=== PATIENT | female | born 1940 | race Caucasian/White ===

== ENCOUNTER → 2016-12-25 | Day surgery (SDC) | payer MEDICARE ==
[~2016-12-25] MED LIST: AMBI10TA PO; ASPI1TAB69 PO; BENI40TA7 PO; BUPIVACAINE/EPINEPHRINE 0.25% PF 30 ML VIAL ONE; CALC1TAB87 PO; CYCL1TAB29 PO; CYMB30CA PO; LACTATED RINGER'S 1000 ML INJ 1,000 ML ONE; MIDAZOLAM HCL 2 MG/2 ML VIAL ONE; MILN50 PO; MULT-120 PO; ONDANSETRON HCL 4 MG/2 ML VIAL IV PUSH ONE; OXYC15TA55 PO; PERC10TA27 PO; PRIL10CA PO; PROPOFOL 100 MG/10 ML INJ IV ONE; SYNT112T PO; ZETI10TA5 PO; [UNRECOGNIZED DRUG - CODE] SL; ceFAZolin 2 GM PREMIX 50 ML ONE
--- NOTE | 2016-12-25 14:50 | TN ---
cc: CHAPO BUSTOS M.D. DATE OF SURGERY: 12/25/2016 PREOPERATIVE DIAGNOSIS 1. Right posterior chest wall mass near a previous chest tube site. 2. History of multiple malignancies in the past. 3. Probable malignant effusion, right chest. POSTOPERATIVE DIAGNOSIS 1. Right posterior chest wall mass near a previous chest tube site. 2. History of multiple malignancies in the past. 3. Probable malignant effusion, right chest. PROCEDURE PERFORMED Excisional biopsy, right chest wall mass. SURGEON Chapo Bustos. CAMPUS INTERVIEWS INTERN Beverley George ANESTHESIA General LMA. COMPLICATIONS None. INDICATION FOR PROCEDURE Ms. Guzman is a very pleasant 76-year-old female who is unfortunately diagnosed with a recent right pleural effusion that was felt to be malignant. She had a chest tube placed and the effusion was drained. Subsequent to that she developed a firm enlarging mass in her right posterior chest area where the chest tube previously was. She is currently being worked up for recurrent malignancy. She had a PET scan showing concerns for possible mesothelioma of the right chest. Because the mass was enlarging and causing her pain, her and her requested it be excised for pathology. The risks and benefits of the procedure were discussed with them and they are agreeable. DETAILS OF PROCEDURE The patient was identified, brought to the operating room and placed supine on the operating table. After general anesthesia was achieved with LMA, the patient was then turned in the left lateral decubitus position with appropriate padding for hips, knees, shoulders and ankles. The right chest wall was then prepped and draped in a standard surgical fashion. 0.25% Marcaine was injected. The previous chest tube incision was opened. Subcutaneous fat was dissected with electrocautery Bovie. Dissection proceeded down through the subcutaneous fat to the musculature of the rib cage where a firm white mass was seen coming through the chest wall muscles. It was excised generously and sent to pathology for analysis. The chest cavity proper was not entered. The wound was copiously irrigated with normal saline solution. The wound was injected with additional local anesthetic then closed in two layers using 3-0 and 4-0 Vicryl. Sterile dressing was applied. The patient was awakened and brought to Recovery in stable condition. MD VASILE Arndt/THOMAS /2:07 PM /2:41 PM
== END | disposition home or self-care (01) ==
LOC: ESDC 11:43
PROVIDERS: ATTEND Surgery Trauma Surgery
DX: R22.2 Localized swelling, mass and lump, trunk (principal); Z85.118 Personal history of other malignant neoplasm of bronchus and lung; Z85.3 Personal history of malignant neoplasm of breast; Z91.040 Latex allergy status
CPT/HCPCS: 00400; 21556; 88307; 88313; 88341; 88342; J0690; J2250; J2405; J3010; J7120; 88305

== ENCOUNTER → 2017-01-08 | Day surgery (SDC) | payer MEDICARE ==
[~2017-01-08] MED LIST changes: -BUPIVACAINE/EPINEPHRINE 0.25% PF 30 ML VIAL ONE; +BUPIVACAINE/EPINEPHRINE 0.5% 50 ML VIAL ONE; -PROPOFOL 100 MG/10 ML INJ IV ONE; +PROPOFOL 200 MG/20 ML AMP IV ONE; +SODIUM CHLORIDE 0.9% INJ 10 ML ONE
--- NOTE | 2017-01-08 16:42 | TN ---
cc: CHAPO BUSTOS M.D. DATE OF SURGERY 01/08/2017 PREOPERATIVE DIAGNOSIS Mesothelioma right lung. POSTOPERATIVE DIAGNOSIS Mesothelioma right lung. PROCEDURE PERFORMED Left subclavian [id number]-N-Zqxa with intraoperative fluoroscopy. SURGEON Chapo Bustos MD ANESTHESIA TIVA with local. COMPLICATIONS None. INDICATION FOR THE PROCEDURE Ms. Guzman is a very pleasant 76-year-old female who unfortunately was recently diagnosed with a mesothelioma of her right lung. She requires IV chemotherapy. She was seen by Dr. Afshan Lao her oncologist who recommended she have an Pzbswl-[id number]-Nush placed. The patient was referred back and seen. She was offered [id number]-[id number]. Both her and her agreed. DETAILS The patient was identified, brought to the operating placed supine on the table. After adequate IV sedation was achieved, the anterior chest and neck was prepped and draped in standard surgical fashion. 0.25% Marcaine was injected in to the skin and subcutaneous tissue around the left clavicle. Left subclavian vein was then accessed without difficulty using an 18 gauge needle. Guidewire was advanced and followed to the level of the superior vena cava. Next a subcutaneous pocket was fashioned in the left anterior chest using a blunt dissection. The introducer was then placed over the guidewire and followed with fluoroscopy to the superior vena cava. Guidewire was then removed and catheter inserted. Catheter was advanced about 20 cm which put it at the junction of the right atrium in the superior vena cava. Next the catheter was attached to the port with a locking device. Port was tested, found to have excellent blood return, easy ability to flush. Port was placed into the subcutaneous pocket and secured with 2-0 Prolene suture. Pocket was injected with additional local anesthetic and then closed in two layers using a 4-0 Vicryl. Sterile dressings were applied. The patient was awakened, brought to recovery in stable condition. A chest x-ray will be obtained in recovery. MD VASILE Arndt/BRANDEN /1:07 PM /4:32 PM
== END | disposition home or self-care (01) ==
LOC: ESDC 11:04
PROVIDERS: ATTEND Surgery Trauma Surgery
DX: Z45.2 Encounter for adjustment and management of vascular access device (principal); C45.9 Mesothelioma, unspecified
CPT/HCPCS: 00532; 36561; 77001; C1788; J0690; J1642; J2250; J2405; J3010; J7120

== ENCOUNTER 2017-03-23 16:32 | Observation (INO) | payer MEDICARE ==
[~2017-03-23] VITALS: Ht 167.6 cm; Wt 65.0 kg
[~2017-03-23 16:32] MED LIST changes: -BUPIVACAINE/EPINEPHRINE 0.5% 50 ML VIAL ONE; -LACTATED RINGER'S 1000 ML INJ 1,000 ML ONE; -MIDAZOLAM HCL 2 MG/2 ML VIAL ONE; -ONDANSETRON HCL 4 MG/2 ML VIAL IV PUSH ONE; -PROPOFOL 200 MG/20 ML AMP IV ONE; -SODIUM CHLORIDE 0.9% INJ 10 ML ONE; -ceFAZolin 2 GM PREMIX 50 ML ONE
[2017-03-23 17:30] VITALS: BP 114/69; PULSE 106; RESP 20; TEMP 97.2; O2SAT 95
[2017-03-23] MEDS ORDERED: MORPHINE SULFATE 4 MG/ML INJ IV PUSH PRN ×2 (17:45)
--- NOTE | 2017-03-23 17:50 | HHI.HP ---
[facility] Cole Henao MD Admission Diagnosis Diagnoses: Travel History International Travel<30 Days: No Contact w/Intl Traveler <30 Da: No History of Present Illness This is a very pleasant but unfortunate 76-year-old female who sees oncologist Dr. oHdgson and television inspector Dr. Valerio. She has a history of recurrent right sided pleural effusions and subsequently had a diagnosis of mesothelioma for which she received chemotherapy. The last chemotherapeutic agent she received was 2 weeks ago and was cisplatin. And is ago she attended a and she was standing for about 3 hours. This was followed by severe back pain right groin pain and right lower extremity pain. She was seen today at the office of her oncologist. Her systolic was 59 and her heart rate 110 with a saturation of 95% on 2 L. She is now admitted with dehydration, hypotension, tachycardia and intractable pain. Of note that 6 weeks ago a PET scan was negative for any metastases. She was seen by the undersigned in presence of her who himself is a retired physician in room 722. She is alert and oriented. She just received some IV morphine and therefore she started feeling better. Amongst her other complaints she has some trouble swallowing, acid reflux and constipation. She recently was diagnosed with urinary tract infection and currently is on ampicillin. She denies any fever chills or diaphoresis. No cough no sputum. She has nausea but no vomiting. No abdominal pain other than the above. She has chronic recurrent constipation. Review of Systems Other As detailed above, 10 systems reviewed and otherwise negative Past Family Social History Past Medical History Right mesothelioma Recurrent right pleural effusions Right breast cancer that occurred twice, first time treated with lumpectomy second time treated with mastectomy Reflux disease, urinary infection, fibromyalgia, anxiety Hyperlipidemia episode of tachycardia Hypertension Collagen colitis irritable bowel syndrome hypothyroidism neck pain headache Stroke diagnosed on MRI at an episode of slurred speech however this now recovered Neuropathy Past Surgical History Numerous right thoracenteses Tonsillectomy C-spine fusion L-spine fusion Appendectomy Right mastectomy Hysterectomy Right total knee replacement Left carpal tunnel release Right mid finger fusion Reported Medications Reported Meds & Active Scripts Active Reported Ampicillin 500 Mg Cap 500 Mg PO QID Oxycontin (Oxycodone HCl) 15 Mg Tab PO Q12HR Savella (Milnacipran) 50 Mg Tab 50 Mg PO BID Ambien (Zolpidem Tartrate) 10 Mg Tab 10 Mg PO HS PRN Percocet (Oxycodone-Acetaminophen) 10-325 mg Tab 1 Tab PO Q4H PRN Prilosec (Omeprazole) 10 Mg Cap 10 Mg PO DAILY Multivitamin Women (Multiple Vitamins W/ Minerals) 1 Tab Tab 1 Tab PO DAILY Synthroid (Levothyroxine Sodium) 112 Mcg Tab 112 Mcg PO DAILY Zetia (Ezetimibe) 10 Mg Tab 10 Mg PO DAILY Cymbalta DR (Duloxetine HCl) 30 Mg Capdr 30 Mg PO BID B-12 Dots (Cyanocobalamin) 500 Mcg Tab 500 Mcg SL DAILY Flexeril (Cyclobenzaprine HCl) 10 Mg Tab 10 Mg PO HS Calcium 600 with Vitamin D (Calcium Carbonate-Cholecalciferol) 600-400 mg-Unit Tab 1 Tab PO DAILY Benicar Hct (Olmesartan-Hydrochlorothiazide) 40-25 mg Tab 1 Tab PO DAILY Aspirin 81 Mg Tabdr 162 Mg PO DAILY Allergies: Coded Allergies: Adhesives (Verified Allergy, Severe, REDNESS,RASH, 08/24/16) Latex (Verified Allergy, Intermediate, RED RASH, 08/24/16) Lortab (Verified Allergy, Mild, ITCHING, 08/24/16) Sulfa (Verified Allergy, Mild, HIVES, 08/24/16) Family History Father at the age of 93 of old age, mother is alive and is 97, brother has COPD, sister has breast cancer Social History Does not smoke, drinks 1 glass of gin a day, no illicit drug use, lives with Physical Exam Physical Exam GENERAL: This is a very pleasant borderline poorly -nourished, well-developed patient, in no apparent distress. SKIN: No rashes, ecchymoses or lesions. Cool and dry. HEAD: Atraumatic. Normocephalic. No temporal or scalp tenderness. EYES: Pupils equal round and reactive. Extraocular motions intact. No scleral icterus. No injection or drainage. ENT: Nose without bleeding, purulent drainage or septal hematoma. Throat without erythema, tonsillar hypertrophy or exudate. Uvula midline. Airway patent. NECK: Trachea midline. No JVD or lymphadenopathy. Supple, nontender, no meningeal signs. CARDIOVASCULAR: Regular rate and rhythm without murmurs, gallops, or rubs. RESPIRATORY: Clear to auscultation. Breath sounds equal bilaterally. No wheezes , rales, or rhonchi. GASTROINTESTINAL: Abdomen soft, non-tender, nondistended. No hepato-splenomegaly , or palpable masses. No guarding. MUSCULOSKELETAL: Extremities without clubbing, cyanosis, or edema. No joint tenderness, effusion, or edema noted. No calf tenderness. Negative Homans sign bilaterally. NEUROLOGICAL: Awake and alert. Cranial nerves II through XII intact. Normal speech. Laboratory Sodium 130, potassium 3.5, chloride 92, CO2 31.3, BUN 19, creatinine 0.85, sugar 106, albumin 2.8, liver enzymes unremarkable, white count 3000, hemoglobin 10.6, platelets 258 Assessment and Plan Assessment and Plan Assessment Severe back pain and right groin pain, etiology unclear Hypotension Sinus tachycardia dehydration hyponatremia hypokalemia Leukopenia Anemia Recent urinary infection Significant history of metastatic mesothelioma Management Patient was placed on observation Telemetry IV fluids Hold off diuretics Hold off blood pressure medications for systolic below 120 Monitor sodium levels X-ray lumbar spine Hip x-ray Right groin ultrasound, rule out DVT DVT prophylaxis with low-dose heparin Follow electrolytes and replace as needed Follow renal function Follow hemoglobin Her oncologist is consulted Case discussed at length with patient and her Discussed with oncologist Discussed with nurse 45 minutes Mitchell Jaramillo MD Mar 23, 2017 17:50
[2017-03-23] MEDS ORDERED: AMPI500C8 PO (18:04)
[2017-03-23] MEDS ORDERED: PILL SPLITTER OTHER PRN (19:30)
--- NOTE | 2017-03-23 19:32 | RADRPT ---
EXAM DATE/TIME: 03/23/2017 18:46 [facility] COMPARISON: CT THORAX W/O CONTRAST, August 25, 2016, 18:04. HIP LEFT (AP&LAT 2/3VWS) WO AP PELVIS, March 23 17, 18:53. HIP RIGHT (AP&LAT 2/3VWS) W AP PELVIS, March 23, 2017, 18:50. INDICATIONS : Low back pain MEDICAL HISTORY : Mesothelioma. Chronic obstructive pulmonary disease. Hypertension. Diabetes mellitus type 2. SURGICAL HISTORY : Fusion, lumbar. Total knee replacement, right. Fusion, cervical. thyroidectomy ENCOUNTER: Initial ACUITY: 1 day PAIN SCORE: 7/10 LOCATION: Lumbar spine. FINDINGS: There is diffuse decreased bone density. 5 lumbar type vertebral bodies are noted. The patient has stanford d previous posterior jazz and transpedicular screw fixation and intervertebral fusion hardware placeme nt at L3-4. Grade 1 anterolisthesis of L3 on L4. Moderate to severe disc space narrowing is present a t L4-5 and L5-S1, moderate disc space narrowing at L1-2 and L2-3. Multilevel osteophyte formation. Po st laminectomy changes are noted at L3-L5. There is a moderate wedge compression fracture suspected a t T12. This is stable. There is slight superior endplate compression deformity at L2 identified. This is new from 2016. CONCLUSION: Degenerative changes and post surgical changes are identified. Remote T12 compression fracture. This is incompletely evaluated on this study. L2 mild superior endplate compression fracture identified a nd new from 2016. Tramaine Oliveros MD on March 23, 2017 at 19:27 Board Certified Radiologist. This report was verified electronically.
--- NOTE | 2017-03-23 19:33 | RADRPT ---
EXAM DATE/TIME: 03/23/2017 18:53 [facility] COMPARISON: HIP RIGHT (AP&LAT 2/3VWS) W AP PELVIS, March 23, 2017, 18:50. SPINE LUMBAR LTD (AP & LAT), March 23 017, 18:46. INDICATIONS : Left hip pain. MEDICAL HISTORY : Mesothelioma. Chronic obstructive pulmonary disease. Hypertension. Diabetes mellitus type 2. SURGICAL HISTORY : Fusion, cervical. Fusion, lumbar. Total knee replacement, right. thyroidectomy,Infuse a port. ENCOUNTER: Initial ACUITY: 1 day PAIN SCORE: 7/10 LOCATION: Left Hip. FINDINGS: Mild joint space narrowing without fracture or dislocation. There is decreased bone mineralization. CONCLUSION: No acute disease. Tramaine Oliveros MD on March 23, 2017 at 19:31 Board Certified Radiologist. This report was verified electronically.
--- NOTE | 2017-03-23 19:33 | RADRPT ---
EXAM DATE/TIME: 03/23/2017 18:50 [facility] COMPARISON: HIP LEFT (AP&LAT 2/3VWS) WO AP PELVIS, March 23, 2017, 18:53. SPINE LUMBAR LTD (AP & LAT), March 23 017, 18:46. INDICATIONS : Right hip and pelvis pain. MEDICAL HISTORY : Mesothelioma. Chronic obstructive pulmonary disease. Hypertension. Diabetes mellitus type 2. SURGICAL HISTORY : Total knee replacement, right. Fusion, lumbar. Fusion, cervical. thyroidectomy. Infuse a port. ENCOUNTER: Initial ACUITY: 1 day PAIN SCORE: 7/10 LOCATION: Right Pelvis and hip FINDINGS: The bone density is decreased. There is mild narrowing of both hips. No fractures are seen. CONCLUSION: Joint space narrowing without fracture or dislocation. Tramaine Oliveros MD on March 23, 2017 at 19:31 Board Certified Radiologist. This report was verified electronically.
--- NOTE | 2017-03-23 19:40 | RADRPT ---
EXAM DATE/TIME: 03/23/2017 19:04 [facility] COMPARISON: No previous studies available for comparison. EXTERNAL COMPARISON : [facility], US LEG VENOUS DOPPLER LEFT, January 09, 2017 INDICATIONS : Right leg swelling. MEDICAL HISTORY : Stroke. Hypertension. Gastroesophageal reflux disease. Hypothyroidism. Neck pain. Cataracts. Upper and lower dentures. Headache. Numbness. Dyspnea. Collagenous colitis. Fibromyalgia. Arthritis. Breas t cancer. SURGICAL HISTORY : Tonsillectomy. Appendectomy. Hysterectomy. Cervical and lumbar fusions. Right mastectomy. Right lump ectomy. Right thoracentesis. Middle finger fusion. ENCOUNTER: Subsequent ACUITY: 2 day PAIN SCORE: 3/10 LOCATION: Right leg. TECHNIQUE: Venous ultrasound of the leg was performed from the inguinal ligament to the proximal calf. Real-mal e, color Doppler and spectral tracing, compression and augmentation techniques were used. FINDINGS: There is normal compressibility of the deep venous system from the inguinal region to the proximal ca lf. No echogenic clot is seen in the lumen of the common femoral, femoral, popliteal, and posterior tibial veins. There is a normal response of the venous system to proximal and distal augmentation an d respiration. CONCLUSION: Normal examination. Tramaine Oliveros MD on March 23, 2017 at 19:38 Board Certified Radiologist. This report was verified electronically.
[2017-03-23 20:00] VITALS: BP 104/56; PULSE 101; RESP 18; TEMP 97.7; O2SAT 96
[2017-03-23] MEDS: CYCLOBENZAPRINE HCL 10 MG TAB PO SCH (20:33)
[2017-03-23] MEDS: POTASSIUM CHLORIDE 25 MEQ EFFERVESCENT TAB PO SCH (20:33)
[2017-03-23] MEDS: MILNACIPRAN 100 MG TAB PO SCH (20:33)
[2017-03-23] MEDS: DULoxetine HCl DR 30 MG CAP PO SCH (20:33)
[2017-03-23 21:15] LABS: MEAN CORPUSCULAR HGB CONC 36.2 % (32.0-36.0)
[2017-03-23] MEDS: ZOLPIDEM TARTRATE 10 MG TAB PO PRN (22:51)
[2017-03-24] VITALS (11 sets, daily range): BP systolic 120–198; BP diastolic 63–110; PULSE 98–109; RESP 17–21; TEMP 96.5–97.6; O2SAT 92–100
[2017-03-24] MEDS: oxyCODONE/ACETAMINOPHEN 10 MG/325 MG TAB PO PRN ×5 (04:59→22:25)
[2017-03-24] MEDS: LEVOTHYROXINE SODIUM 112 MCG TAB PO SCH (04:59)
[2017-03-24 07:18] LABS: AUTOMATED NEUTROPHIL # 1.4 TH/MM3 (1.8-7.7); BASOPHIL % 0.7 % (0.0-2.0); EOSINOPHIL % 1.5 % (0.0-4.0); HEMATOCRIT 28.9 % (35.0-46.0); LYMPH % 20.9 % (9.0-44.0); LYMPHOCYTE # 0.5 TH/MM3 (1.0-4.8); MEAN CELL VOLUME 92.5 FL (80.0-100.0); MEAN CORPUSCULAR HEMOGLOBIN 33.5 PG (27.0-34.0); MONO % 24.4 % (0.0-8.0); NEUT % 52.5 % (16.0-70.0); PLATELET COUNT 227 TH/MM3 (150-450); RED BLOOD COUNT 3.12 MIL/MM3 (4.00-5.30); RED CELL DISTRIBUTION WIDTH 17.6 % (11.6-17.2); WHITE BLOOD COUNT 2.6 TH/MM3 (4.0-11.0)
[2017-03-24 07:20] LABS: HEMO FLAGS AUTO DIFF
[2017-03-24] MEDS: ASPIRIN EC 81 MG TABEC PO SCH (07:26)
[2017-03-24] MEDS: PANTOPRAZOLE SOD 20 MG DELAYED RELEASE TAB PO SCH (07:27)
[2017-03-24] MEDS: DULoxetine HCl DR 30 MG CAP PO SCH ×2 (07:27→21:14)
[2017-03-24] MEDS: MULTIVITAMINS/MINERALS THERAPEUTIC TAB PO SCH (07:27)
[2017-03-24] MEDS: POTASSIUM CHLORIDE 25 MEQ EFFERVESCENT TAB PO SCH (07:27)
[2017-03-24] MEDS: MILNACIPRAN 100 MG TAB PO SCH ×2 (07:27→21:15)
[2017-03-24] MEDS: EZETIMIBE 10 MG TAB PO SCH (07:27)
[2017-03-24] MEDS: CALCIUM/VITAMIN D 250 MG/125 U TAB PO SCH (07:27)
[2017-03-24] MEDS: CYANOCOBALAMIN 100 MCG TAB PO SCH (07:28)
[2017-03-24 07:40] LABS: BICARBONATE 29.6 MEQ/L (21.0-32.0); POTASSIUM 3.5 MEQ/L (3.5-5.1)
[2017-03-24 07:52] LABS: INDIRECT BILIRUBIN 0.3 MG/DL (0.0-0.8); TOTAL BILIRUBIN ADULT 0.4 MG/DL (0.2-1.0)
[2017-03-24] MEDS: ONDANSETRON HCL 4 MG/2 ML VIAL IV PUSH PRN ×2 (08:49→21:12)
[2017-03-24] MEDS ORDERED: NON-FORMULARY DRUG (Olmesartan-Hydrochlorothiazide (Benicar Hct) 1 TAB) PO SCH (09:00)
[2017-03-24] MEDS: LISINOPRIL 20 MG TAB PO SCH (11:32)
[2017-03-24] MEDS ORDERED: SODIUM CHLOR 0.9% 1000 ML INJ 1,000 ML IV SCH (12:00)
[2017-03-24 12:33] LABS: OVALOCYTES 1+ (NORMAL); SCAN/DIFF AUTO DIFF CONFIRMED
--- NOTE | 2017-03-24 14:30 | HHI.PR ---
Subjective Subjective Remarks continues to have right sided back pain, radiating to groin and front thigh sharp inc. with movement voiding okay no cp no sob no fever BP now elevated up to 170s-180s on IVF has been out of bed with assistance at bsd Review of Systems Constitutional Constitutional Remarks 12 point ros completed, negative except as noted above Vitals/Results Intake & Output 03/23/17 03/23/17 03/24/17 15:00 23:00 07:00 Output Total 200 ml Balance -200 ml Output Urine Total 200 ml Vital Signs Vital Signs Date Time Temp Pulse Resp B/P Pulse Ox O2 Delivery O2 Flow Rate FiO2 03/24/17 13:15 153/80 03/24/17 12:25 96.5 99 20 173/63 98 03/24/17 11:12 98 Nasal Cannula 3.00 03/24/17 09:30 180/67 03/24/17 08:00 97.6 99 21 198/110 94 03/24/17 05:59 16 03/24/17 04:00 97.0 109 17 140/82 92 03/24/17 01:43 95 Nasal Cannula 4.00 03/24/17 00:00 97.0 104 18 120/66 96 03/23/17 20:00 97.7 101 18 104/56 96 03/23/17 17:30 97.2 106 20 114/69 95 CBC/BMP: 03/24/17 0457 03/24/17 0457 Lab Results Laboratory Tests Test 03/24/17 04:57 White Blood Count 2.6 TH/MM3 Red Blood Count 3.12 MIL/MM3 Hemoglobin 10.5 GM/DL Hematocrit 28.9 % Mean Corpuscular Volume 92.5 FL Mean Corpuscular Hemoglobin 33.5 PG Mean Corpuscular Hemoglobin 36.2 % Concent Red Cell Distribution Width 17.6 % Platelet Count 227 TH/MM3 Mean Platelet Volume 6.5 FL Neutrophils (%) (Auto) 52.5 % Lymphocytes (%) (Auto) 20.9 % Monocytes (%) (Auto) 24.4 % Eosinophils (%) (Auto) 1.5 % Basophils (%) (Auto) 0.7 % Neutrophils # (Auto) 1.4 TH/MM3 Lymphocytes # (Auto) 0.5 TH/MM3 Monocytes # (Auto) 0.6 TH/MM3 Eosinophils # (Auto) 0.0 TH/MM3 Basophils # (Auto) 0.0 TH/MM3 CBC Comment AUTO DIFF Differential Comment AUTO DIFF CONFIRMED Ovalocytes 1+ Sodium Level 133 MEQ/L Potassium Level 3.5 MEQ/L Chloride Level 94 MEQ/L Carbon Dioxide Level 29.6 MEQ/L Anion Gap 9 MEQ/L Blood Urea Nitrogen 20 MG/DL Creatinine 0.76 MG/DL Estimat Glomerular Filtration 74 ML/MIN Rate Random Glucose 89 MG/DL Calcium Level 10.1 MG/DL Total Bilirubin 0.4 MG/DL Direct Bilirubin 0.1 MG/DL Indirect Bilirubin 0.3 MG/DL Aspartate Amino Transf 19 U/L (AST/SGOT) Alanine Aminotransferase 17 U/L (ALT/SGPT) Alkaline Phosphatase 88 U/L Total Protein 6.5 GM/DL Albumin 2.7 GM/DL Thyroid Stimulating Hormone 0.762 uIU/ML 3rd Gen Physical Exam General General Appearance: Well Developed, Well Nourished, No Acute Distress, Comfortable Eyes Eye Exam: Pupils Equal, Pupils Reactive Ears & Nose Ears & Nose Exam: Nasal Mucosa Carlton Throat Throat Exam: Oral Mucosa Carl[place] & Moist Neck Neck Exam: Neck Supple, Trachea Midline Pulmonary Resp Exam: Breath Sounds Equal, No Distress Cardiology CV Exam: Regular, Normal Sinus Rhythm, Good Perfusion Gastrointestinal/Abdomen GI Exam: Soft, Non-Tender, Bowel Sounds Present, Non-Distended Musculoskeletal MS Exam: Joints Intact Integumentary Skin Exam: Warm, Dry Extremeties Extremities Exam: No Edema, Pedal Pulses Palpable Neurologic Neuro Exam: Alert, Awake, Oriented, Speech Clear, Moving All Extremities, No Focal Deficits Psychiatric Psych Exam: Appropriate Responses VTE Prophylaxis VTE Prophylaxis Device: SCDs Assessment/Plan Problem List: (1) Tachycardia (2) Hypotension, unspecified (3) right groin and back pain (4) Hypothyroidism (5) Coronary artery disease (6) Fibromyalgia (7) Mesothelioma (8) Anxiety (9) HX: breast cancer (10) Dehydration Assessment/Plan pt. no longer hypotensive BP now up to 190s DC IVF Restart BP meds UA/UC pending continues to c/o right back and groin pain, endorses this pain has been ongoing x 2 months. imaging studies reviewed, no fractures Right leg US, negative DVT will check abd and pelvis CT with IV contrast rule urolithiasis Consult [facility] activity as tolerated, doesn't want PT PPI for GI prophylaxis SCDs for DVT prophylaxis f/u imaging results no clear etiology for patient's symptoms D/W pt and D/W Dr. Jaramillo D/W RN This pt was seen by myself and Dr. Han, this note is written on her behalf Problem Qualifiers (1) Hypothyroidism: Qualified Code: E03.9 - Hypothyroidism, unspecified type (2) Coronary artery disease: Frieda Ramirez Mar 24, 2017 14:30
[2017-03-24] MEDS: POTASSIUM CHLORIDE 20 MEQ CONTROLLED RELEASE TAB PO SCH (15:35)
[2017-03-24 16:01] LABS: BLOOD, URINE NEG (NEG); COMMENT (UR) CULT NOT INDICATED; CULTURE IF INDICATED CULT NOT INDICATED; GLUCOSE,URINE NEG (NEG); KETONE, URINE NEG (NEG); MUCUS URINE FEW /lpf (OCC); NITRITE,URINE NEG (NEG); SQUAMOUS EPITHELIAL CELL URINE 1 /hpf (0-5); URINE COLOR YELLOW (YELLW/STRAW)
--- NOTE | 2017-03-24 17:56 | RADRPT ---
EXAM DATE/TIME: 03/24/2017 17:26 [facility] COMPARISON: CT THORAX W/O CONTRAST, August 25, 2016, 18:04. INDICATIONS : Flank pain. ORAL CONTRAST: No oral contrast ingested. RADIATION DOSE: 13.48 CTDIvol (mGy) MEDICAL HISTORY : Cardiovascular disease. Carcinoma, breast. SURGICAL HISTORY : Mastectomy, right. thoracentisis ENCOUNTER: Initial ACUITY: 1 day PAIN SCALE: 4/10 LOCATION: Bilateral flank TECHNIQUE: Volumetric scanning of the abdomen and pelvis was performed. Using automated exposure control and ad justment of the mA and/or kV according to patient size, radiation dose was kept as low as reasonably achievable to obtain optimal diagnostic quality images. DICOM format image data is available electro nically for review and comparison. FINDINGS: LOWER LUNGS: Pleural-parenchymal density right lung base with calcifications appears unchanged. LIVER: Homogeneous density without lesion. There is no dilation of the biliary tree. No calcified gallston es. SPLEEN: Normal size without lesion. PANCREAS: Within normal limits. KIDNEYS: Normal in size and shape. There is no mass, stone, or hydronephrosis. ADRENAL GLANDS: Within normal limits. VASCULAR: There is no aortic aneurysm. BOWEL/MESENTERY: The stomach, small bowel, and colon demonstrate no acute abnormality. There is no free intraperitone al air or fluid. ABDOMINAL WALL: Within normal limits. RETROPERITONEUM: There is no lymphadenopathy. BLADDER: No wall thickening or mass. REPRODUCTIVE: Status post hysterectomy. INGUINAL: There is no lymphadenopathy or hernia. MUSCULOSKELETAL: Scoliosis and degenerative changes. Fusion of the lumbar spine. CONCLUSION: 1. No acute inflammatory process. 2. Status post hysterectomy. 3. Fusion and degenerative changes lumbar spine. 4. Pleural-parenchymal density right lung base is stable. 5. No renal calculi or hydronephrosis. Talib Bajwa MD on March 24, 2017 at 17:48 Board Certified Radiologist. This report was verified electronically.
[2017-03-24] MEDS: CYCLOBENZAPRINE HCL 10 MG TAB PO SCH (21:14)
[2017-03-24] MEDS: ZOLPIDEM TARTRATE 10 MG TAB PO PRN (22:25)
[2017-03-25] VITALS: BP 194/112; PULSE 98; RESP 18; TEMP 96.9; O2SAT 98
[2017-03-25 04:00] VITALS: BP 151/90; PULSE 100; RESP 19; TEMP 96.8; O2SAT 98
[2017-03-25] MEDS: oxyCODONE/ACETAMINOPHEN 10 MG/325 MG TAB PO PRN ×3 (04:29→14:21)
[2017-03-25] MEDS: LEVOTHYROXINE SODIUM 112 MCG TAB PO SCH (04:32)
[2017-03-25 08:00] VITALS: BP_SYST 163; BP_SYST 186; BP_DIAS 101; BP_DIAS 96; PULSE 104; RESP 20; TEMP 96.6; O2SAT 99
[2017-03-25] MEDS: LISINOPRIL 20 MG TAB PO SCH (09:13)
[2017-03-25] MEDS: EZETIMIBE 10 MG TAB PO SCH (09:13)
[2017-03-25] MEDS: MILNACIPRAN 100 MG TAB PO SCH (09:14)
[2017-03-25] MEDS: DULoxetine HCl DR 30 MG CAP PO SCH (09:14)
[2017-03-25] MEDS: PANTOPRAZOLE SOD 20 MG DELAYED RELEASE TAB PO SCH (09:14)
[2017-03-25] MEDS: ASPIRIN EC 81 MG TABEC PO SCH (09:14)
[2017-03-25] MEDS: POTASSIUM CHLORIDE 20 MEQ CONTROLLED RELEASE TAB PO SCH (09:14)
[2017-03-25] MEDS: CALCIUM/VITAMIN D 250 MG/125 U TAB PO SCH (09:15)
[2017-03-25] MEDS: CYANOCOBALAMIN 100 MCG TAB PO SCH (09:15)
[2017-03-25] MEDS: MULTIVITAMINS/MINERALS THERAPEUTIC TAB PO SCH (09:15)
[2017-03-25] MEDS ORDERED: oxyCODONE HCL 10 MG CONTROLLED RELEASE TAB PO SCH (09:45)
[2017-03-25 10:25] VITALS: O2SAT 98
--- NOTE | 2017-03-25 12:28 | HHI.PR ---
Subjective Subjective Remarks continues to have right sided back pain, radiating to groin and front thigh sharp Associated with some movements Has been ambulating with some assistance Voiding okay Blood pressure elevated at times No chest pain No shortness of breath No fever at bedside, Review of Systems Constitutional Constitutional Remarks 12 point ros completed, negative except as noted above Vitals/Results Intake & Output 03/24/17 03/24/17 03/25/17 15:00 23:00 07:00 Intake Total 1134 ml 420 ml 240 ml Balance 1134 ml 420 ml 240 ml Intake Oral 400 ml 420 ml 240 ml IV Total 734 ml # Voids 3 3 2 # Bowel Movements 1 0 0 Vital Signs Vital Signs Date Time Temp Pulse Resp B/P Pulse Ox O2 Delivery O2 Flow Rate FiO2 03/25/17 10:25 98 Nasal Cannula 2.00 03/25/17 08:00 96.6 104 20 186/101 99 163/96 03/25/17 04:00 96.8 100 19 151/90 98 03/25/17 00:00 96.9 98 18 194/112 98 03/24/17 20:08 98 Nasal Cannula 2.00 03/24/17 20:00 96.9 100 17 163/97 98 03/24/17 16:42 96.5 98 20 153/84 100 Manual Cuff/Auscultation 03/24/17 13:15 153/80 CBC/BMP: 03/24/17 0457 03/24/17 0457 Lab Results Laboratory Tests Test 03/24/17 15:38 Urine Color YELLOW Urine Turbidity CLEAR Urine pH 7.0 Urine Specific [place] 1.019 Urine Protein NEG mg/dL Urine Glucose (UA) NEG mg/dL Urine Ketones NEG mg/dL Urine Occult Blood NEG Urine Nitrite NEG Urine Bilirubin NEG Urine Urobilinogen 2.0 MG/DL Urine Leukocyte Esterase NEG Urine RBC LESS THAN 1 /hpf Urine WBC 1 /hpf Urine Squamous Epithelial 1 /hpf Cells Urine Mucus FEW /lpf Microscopic Urinalysis Comment CULT NOT INDICATED Physical Exam General General Appearance: Well Developed, Well Nourished, No Acute Distress, Comfortable Eyes Eye Exam: Pupils Equal, Pupils Reactive Ears & Nose Ears & Nose Exam: Nasal Mucosa [place] Throat Throat Exam: Oral Mucosa [place] & Moist Neck Neck Exam: Neck Supple, Trachea Midline Pulmonary Resp Exam: Breath Sounds Equal, No Distress Cardiology CV Exam: Regular, Normal Sinus Rhythm, Good Perfusion Gastrointestinal/Abdomen GI Exam: Soft, Non-Tender, Bowel Sounds Present, Non-Distended Musculoskeletal MS Exam: Joints Intact Integumentary Skin Exam: Warm, Dry Extremeties Extremities Exam: No Edema, Pedal Pulses Palpable Neurologic Neuro Exam: Alert, Awake, Oriented, Speech Clear, Moving All Extremities, No Focal Deficits Psychiatric Psych Exam: Appropriate Responses VTE Prophylaxis VTE Prophylaxis Device: SCDs Assessment/Plan Problem List: (1) Tachycardia (2) Hypotension, unspecified (3) right groin and back pain (4) Hypothyroidism (5) Coronary artery disease (6) Fibromyalgia (7) Mesothelioma (8) Anxiety (9) HX: breast cancer (10) Dehydration Assessment/Plan hypotension resolved control BP on home meds off IVF UA/UC negative continues to c/o right back and groin pain, associated with movement, likely musculoskeletal imaging studies reviewed, no fractures Right leg US, negative DVT abd and pelvis CT with IV contrast rule urolithiasis-negative, no acute findings will try Prednisone 20 mg po now Consult oncology-pending, Dr. Vera to see pt. today Inc. activity as tolerated, doesn't want PT PPI for GI prophylaxis SCDs for DVT prophylaxis No clear etiology for back/leg pain ? radiculopathy, poss steroids can help temporarily poss dc today D/W pt and D/W Dr. Jaramillo D/W RN This pt was seen by myself and Dr. Han, this note is written on her behalf Problem Qualifiers (1) Hypothyroidism: Qualified Code: E03.9 - Hypothyroidism, unspecified type (2) Coronary artery disease: Frieda Ramirez [facility] Mar 25, 2017 12:28
--- NOTE | 2017-03-25 12:29 | HHI.DCPOC ---
Discharge Care Plan Diagnosis: (1) right groin and back pain Your Health Problems Are: Difficulty with ADL Goals to Promote Your Health * To prevent worsening of your condition and complications * To maintain your health at the optimal level Directions to Meet Your Goals Take your medications as prescribed Follow your dietary instruction Follow activity as directed Keep your appointments as scheduled Take your immunizations and boosters as scheduled If your symptoms worsen call your PCP, if no PCP go to Urgent Care Center or Emergency Room Smoking is Dangerous to Your Health. Avoid second hand smoke Call the 24-hour hour crisis hotline for domestic abuse at Frieda Ramirez. [facility] Mar 25, 2017 12:29
[2017-03-25] MEDS ORDERED: predniSONE 20 MG TAB PO ONE (12:30)
[2017-03-25 12:37] VITALS: BP 148/80; PULSE 94; RESP 20; TEMP 96.5; O2SAT 96
[2017-03-25] MEDS ORDERED: MEDR4PAK PO (14:46)
--- NOTE | 2017-03-26 20:27 | HHI.DS ---
Discharge Summary Admission Date Mar 23, 2017 at 16:45 Discharge Date: Mar 25, 2017 Admitting Diagnosis (1) Dehydration (2) Hypotension, unspecified (3) right groin and back pain (4) HX: breast cancer (5) Tachycardia (6) Hypothyroidism (7) Fibromyalgia (8) Anxiety (9) Mesothelioma (10) Coronary artery disease CBC/BMP: 03/24/17 0457 03/24/17 0457 Significant Findings Laboratory Tests Test 03/24/17 03/24/17 04:57 15:38 White Blood Count 2.6 TH/MM3 (4.0-11.0) Red Blood Count 3.12 MIL/MM3 (4.00-5.30) Hemoglobin 10.5 GM/DL (11.6-15.3) Hematocrit 28.9 % (35.0-46.0) Mean Corpuscular Hemoglobin 36.2 % Concent (32.0-36.0) Red Cell Distribution Width 17.6 % (11.6-17.2) Mean Platelet Volume 6.5 FL (7.0-11.0) Monocytes (%) (Auto) 24.4 % (0.0-8.0) Neutrophils # (Auto) 1.4 TH/MM3 (1.8-7.7) Lymphocytes # (Auto) 0.5 TH/MM3 (1.0-4.8) Ovalocytes 1+ (NORMAL) Sodium Level 133 MEQ/L (136-145) Chloride Level 94 MEQ/L (98-107) Blood Urea Nitrogen 20 MG/DL (7-18) Estimat Glomerular Filtration 74 ML/MIN (>89) Rate Albumin 2.7 GM/DL (3.4-5.0) Urine Mucus FEW /lpf (OCC) Imaging Last Impressions Abdomen/Pelvis CT 03/24/17 0000 Signed Impressions: Service Date/Time: Friday, March 24, 2017 17:26 - CONCLUSION: 1. No acute inflammatory process. 2. Status post hysterectomy. 3. Fusion and degenerative changes lumbar spine. 4. Pleural-parenchymal density right lung base is stable. 5. No renal calculi or hydronephrosis. Talib Bajwa MD Lumbar Spine X-Ray 03/23/17 0000 Signed Impressions: Service Date/Time: Thursday, March 23, 2017 18:46 - CONCLUSION: Degenerative changes and post surgical changes are identified. Remote T12 compression fracture. This is incompletely evaluated on this study. L2 mild superior endplate compression fracture identified and new from 2016. Tramaine Oliveros MD Lower Extremity Ultrasound 03/23/17 Signed Impressions: Service Date/Time: Thursday, March 23, 2017 19:04 - CONCLUSION: Normal examination. Tramaine Oliveros MD Hip and Pelvis X-Ray 03/23/17 Signed Impressions: Service Date/Time: Thursday, March 23, 2017 18:50 - CONCLUSION: Joint space narrowing without fracture or dislocation. Tramaine Oliveros MD Hip X-Ray 03/23/17 Signed Impressions: Service Date/Time: Thursday, March 23, 2017 18:53 - CONCLUSION: No acute disease. Tramaine Oliveros MD Hospital Course This is a very pleasant but unfortunate 76-year-old female who sees oncologist Dr. Larson and catering and events manager Dr. Valerio. She has a history of recurrent right sided pleural effusions and subsequently had a diagnosis of mesothelioma for which she received chemotherapy. The last chemotherapeutic agent she received was 2 weeks ago and was cisplatin. Pt. states she attended a and she was standing for about 3 hours wearing high heels. This was followed by severe back pain right groin pain and right lower extremity pain. She was at the office of her oncologist. Her systolic was 59 and her heart rate 110 with a saturation of 95% on 2 L. She was admitted with dehydration, hypotension, tachycardia and intractable pain. Of note that 6 weeks ago a PET scan was negative for any metastases. She was seen by attending in presence of her who himself is a retired physician in room 722. She was alert and oriented. She had received some IV morphine and therefore she started feeling better. Amongst her other complaints she has some trouble swallowing, acid reflux and constipation. She recently was diagnosed with urinary tract infection and currently is on ampicillin. She denied any fever chills or diaphoresis. No cough no sputum. She had nausea but no vomiting. No abdominal pain other than the above. She had chronic recurrent constipation. Pt. was admitted for: (1) Tachycardia (2) Hypotension, unspecified (3) right groin and back pain (4) Hypothyroidism (5) Coronary artery disease (6) Fibromyalgia (7) Mesothelioma (8) Anxiety (9) HX: breast cancer (10) Dehydration During the course of the hospitalization, the following took place: Patient was admitted, was given IV fluid resuscitation. hypotension resolved BP started going back up, home meds were restarted. He fluids were discontinued. UA/UC negative continued to c/o right back and groin pain, associated with movement, likely musculoskeletal imaging studies reviewed, no fractures Right leg US, negative DVT abd and pelvis CT with IV contrast rule urolithiasis-negative, no acute findings Given Prednisone 20 mg po x [address] Vera evaluated pt. Inc. activity as tolerated, did not want PT PPI for GI prophylaxis SCDs for DVT prophylaxis No clear etiology for back/leg pain ? radiculopathy, poss steroids can help temporarily Pt. was doing better, was wiling to try steroids Declined PT, [facility] Pt. was discharged home in stable condition. D/W pt and D/W Dr. Jaramillo D/W RN This pt was seen by myself and Dr. Han, this note is written on her behalf Pt Condition on Discharge: Stable Discharge Disposition: Discharge Home Discharge Instructions DIET: Follow Instructions for: Heart Healthy Diet Activities you can perform: See Additionl Instruction Other Activity Instructions: as tolerated outpatient PT Follow up Referrals: Oncology with RAFIQ LARSON New Medications: Methylprednisolone Dosepak (Medrol Dosepak) 4 Mg Dspk 4 MG PO DIRECTED Per Pharmacist direction inflammation #1 Ref 0 DSPK Continued Medications: Aspirin (Aspirin) 81 Mg Tabdr 162 MG PO DAILY TAB Calcium Carbonate-Cholecalciferol (Calcium 600 with Vitamin D) 600-400 mg-Unit Tab 1 TAB PO DAILY Calcium Supplement Ref 0 TAB Cyanocobalamin Odt (B-12 Dots) 500 Mcg Tab 500 MCG SL DAILY Nutritional Supplement #1 Ref 0 BOTTLE Cyclobenzaprine (Flexeril) 10 Mg Tab 10 MG PO HS Muscle Spasm #[address] (Cymbalta DR) 30 Mg Capdr 30 MG PO BID #30 Ref 0 CAP Ezetimibe (Zetia) 10 Mg Tab 10 MG PO DAILY #30 Ref 0 TAB Levothyroxine (Synthroid) 112 Mcg Tab 112 MCG PO DAILY Thyroid #30 Ref 0 TAB Milnacipran (Savella) 50 Mg Tab 50 MG PO BID Fibromyalgia #60 Ref 0 TAB Multiple Vitamins W/ Minerals (Multivitamin Women) 1 Tab Tab 1 TAB PO DAILY Nutritional Supplement Ref 0 TAB Olmesartan-Hydrochlorothiazide (Benicar Hct) 40-25 mg Tab 1 TAB PO DAILY Blood Pressure Management #30 Ref 0 TAB Omeprazole (Prilosec) 10 Mg Cap 10 MG PO DAILY #30 Ref 0 CAP Oxycodone ER (Oxycontin) 15 Mg Tab PO Q12HR Zolpidem (Ambien) 10 Mg Tab 10 MG PO HS PRN INSOMNIA Ref 0 TAB Discontinued Medications: Ampicillin (Ampicillin) 500 Mg Cap 500 MG PO QID CAP Oxycodone-Acetaminophen (Percocet) 10-325 mg Tab 1 TAB PO Q4H PRN PAIN Ref 0 TAB Frieda Ramirez [facility] Mar 26, 2017 20:26
== END 2017-03-25 15:50 | disposition home or self-care (01) ==
LOC: HOCB 16:45
PROVIDERS: ADMIT Specialist; ATTEND Specialist
DX: M54.9 Dorsalgia, unspecified (principal); R10.30 Lower abdominal pain, unspecified; I95.9 Hypotension, unspecified; R00.0 Tachycardia, unspecified; E86.0 Dehydration; E87.1 Hypo-osmolality and hyponatremia; E87.6 Hypokalemia; D72.819 Decreased white blood cell count, unspecified; D64.9 Anemia, unspecified; N39.0 Urinary tract infection, site not specified; M79.604 Pain in right leg; R13.10 Dysphagia, unspecified; M48.54XA Collapsed vertebra, not elsewhere classified, thoracic region, initial encounter for fracture; M54.10 Radiculopathy, site unspecified; K59.00 Constipation, unspecified; R11.0 Nausea; M79.7 Fibromyalgia; I25.10 Atherosclerotic heart disease of native coronary artery without angina pectoris; I10 Essential (primary) hypertension; E78.5 Hyperlipidemia, unspecified; E03.9 Hypothyroidism, unspecified; K21.9 Gastro-esophageal reflux disease without esophagitis; G62.9 Polyneuropathy, unspecified; K58.9 Irritable bowel syndrome, unspecified; F41.9 Anxiety disorder, unspecified; Z98.1 Arthrodesis status; Z96.651 Presence of right artificial knee joint; Z79.899 Other long term (current) drug therapy; Z79.82 Long term (current) use of aspirin; Z92.21 Personal history of antineoplastic chemotherapy; Z85.3 Personal history of malignant neoplasm of breast; Z85.89 Personal history of malignant neoplasm of other organs and systems
CPT/HCPCS: 72100; 73502; 74176; 80048; 80076; 81001; 84443; 85025; 93971; G0378; J2270; J2405; J7512

== ENCOUNTER 2017-06-29 19:11 | Inpatient (IN) | payer MEDICARE ==
[~2017-06-29] VITALS: Ht 167.6 cm; Wt 63.0 kg
[~2017-06-29 19:11] MED LIST changes: +MEDR4PAK PO; -PERC10TA27 PO
[2017-06-29 19:17] VITALS: BP 136/63; PULSE 105; RESP 18; TEMP 98.1; O2SAT 97
[2017-06-29] MEDS ORDERED: SODIUM CHLOR 0.9% 1000 ML INJ 1,000 ML IV SCH (19:28)
[2017-06-29] MEDS ORDERED: SODIUM CHLORIDE 0.9% FLUSH 5 ML FLUSH IV FLUSH PRN (19:30)
[2017-06-29 19:59] VITALS: RESP 18; O2SAT 99
--- NOTE | 2017-06-29 20:09 | RADRPT ---
EXAM DATE/TIME: 06/29/2017 19:30 [facility] COMPARISON: CHEST SINGLE AP, August 24, 2016, 16:14. INDICATIONS : Syncope. MEDICAL HISTORY : Mesothelioma. SURGICAL HISTORY : [place] ENCOUNTER: Initial ACUITY: 1 day PAIN SCORE: Non-responsive. LOCATION: Bilateral chest FINDINGS: One the right pleural effusion and right-sided airspace disease has improved from August 2016. Left [id number] tip is in superior vena cava. Mild left basilar opacity. Tortuous aorta. Previous fusi on lower cervical spine. CONCLUSION: 1. Improved right-sided airspace disease and pleural effusions since August 2016. Minimal left basi lar atelectasis. Amari Murray MD on June 29, 2017 at 20:04 Board Certified Radiologist. This report was verified electronically.
[2017-06-29 20:13] LABS: BASOPHIL % 0.6 % (0.0-2.0); EOSINOPHIL # 0.1 TH/MM3 (0-0.4); EOSINOPHIL % 3.7 % (0.0-4.0); HEMATOCRIT 24.5 % (35.0-46.0); LYMPH % 16.9 % (9.0-44.0); LYMPHOCYTE # 0.6 TH/MM3 (1.0-4.8); MEAN CELL VOLUME 102.5 FL (80.0-100.0); MEAN CORPUSCULAR HEMOGLOBIN 36.9 PG (27.0-34.0); MONO % 22.4 % (0.0-8.0); NEUT % 56.4 % (16.0-70.0); PLATELET COUNT 320 TH/MM3 (150-450); RED CELL DISTRIBUTION WIDTH 16.8 % (11.6-17.2); WHITE BLOOD COUNT 3.6 TH/MM3 (4.0-11.0)
--- NOTE | 2017-06-29 20:17 | RADRPT ---
EXAM DATE/TIME: 06/29/2017 20:02 [facility] COMPARISON: No previous studies available for comparison. INDICATIONS : Altered mental status. RADIATION DOSE: 31.94 CTDIvol (mGy) MEDICAL HISTORY : Cerebrovascular disease. Cardiovascular disease SURGICAL HISTORY : None. ENCOUNTER: Initial ACUITY: 1 day PAIN SCALE: Non-responsive LOCATION: cranial TECHNIQUE: Multiple contiguous axial images were obtained of the head. Using automated exposure control and adj ustment of the mA and/or kV according to patient size, radiation dose was kept as low as reasonably a chievable to obtain optimal diagnostic quality images. DICOM format image data is available electro nically for review and comparison. FINDINGS: CEREBRUM: The ventricles are normal for age. No evidence of midline shift, mass lesion, hemorrhage or acute in farction. No extra-axial fluid collections are seen. POSTERIOR FOSSA: The cerebellum and brainstem are intact. The 4th ventricle is midline. The cerebellopontine angle i s unremarkable. EXTRACRANIAL: The visualized portion of the orbits is intact. SKULL: The calvaria is intact. No evidence of skull fracture. CONCLUSION: Normal examination for a patient of this age. Amari Murray MD on June 29, 2017 at 20:13 Board Certified Radiologist. This report was verified electronically.
[2017-06-29 20:24] LABS: HEMO FLAGS AUTO DIFF
[2017-06-29 20:28] LABS: ANION GAP 11 MEQ/L (5-15); AST (GOT) 21 U/L (15-37); BICARBONATE 26.5 MEQ/L (21.0-32.0); BLOOD UREA NITROGEN 17 MG/DL (7-18); CHLORIDE 93 MEQ/L (98-107); GLOMERULAR FILTRATION RATE 60 ML/MIN (>89); POTASSIUM 3.1 MEQ/L (3.5-5.1); SODIUM (NA) 130 MEQ/L (136-145)
[2017-06-29 20:30] LABS: ALT (GPT) 15 U/L (10-53); APTT (PATIENT) 26.3 SEC (24.3-30.1)
[2017-06-29 20:38] LABS: ALKALINE PHOSPHATASE 69 U/L (45-117); TOTAL BILIRUBIN ADULT 0.4 MG/DL (0.2-1.0)
--- NOTE | 2017-06-29 21:09 | PD ---
HPI Chief Complaint: Altered Mental Status Time Seen by Provider: 19:17 Travel History International Travel<30 days: No Contact w/Intl Traveler<30days: No Traveled to known affect area: No History of Present Illness HPI This 76-year-old woman who presents to the emergency department brought in by her for depressed mental status status, sluggishness. She's currently being treated for malignant mesothelioma in the right chest. She is on IV chemotherapy, last treated 3 weeks ago. She was recovering from some mucositis associated with her chemotherapy use. She is followed by Dr. Lao. She normally is lucid, but weak and lethargic. She normally gets around with a wheelchair but can stand to transfer. Over the past day she is mumbling, incoherent, and not really responding. History Past Medical History Narrative Medical Fibromyalgia Hyperlipidemia Hypertension Hypothyroidism Colitis/diverticulitis Malignant mesothelioma in the right chest Social History Alcohol Use: Yes (GIN DAILY) Tobacco Use: No Allergies-Medications (Allergen,Severity, Reaction): Coded Allergies: adhesive (Unverified Allergy, Severe, REDNESS,RASH, 06/29/17) latex (Unverified Allergy, Intermediate, RED RASH, 06/29/17) Sulfa (Sulfonamide Antibiotics) (Unverified Allergy, Mild, HIVES, 06/29/17 ) acetaminophen (Unverified Allergy, Mild, ITCHING, 06/29/17) hydrocodone (Unverified Allergy, Mild, ITCHING, 06/29/17) Reported Meds & Prescriptions Reported Meds & Active Scripts Active Reported Oxycontin (Oxycodone HCl) 15 Mg Tab PO Q12HR Savella (Milnacipran) 50 Mg Tab 50 Mg PO BID Ambien (Zolpidem Tartrate) 10 Mg Tab 10 Mg PO HS PRN Prilosec (Omeprazole) 10 Mg Cap 10 Mg PO DAILY Multivitamin Women (Multiple Vitamins W/ Minerals) 1 Tab Tab 1 Tab PO DAILY Synthroid (Levothyroxine Sodium) 112 Mcg Tab 112 Mcg PO DAILY Zetia (Ezetimibe) 10 Mg Tab 10 Mg PO DAILY Cymbalta DR (Duloxetine HCl) 30 Mg Capdr 30 Mg PO BID B-12 Dots (Cyanocobalamin) 500 Mcg Tab 500 Mcg SL DAILY Flexeril (Cyclobenzaprine HCl) 10 Mg Tab 10 Mg PO HS Calcium 600 with Vitamin D (Calcium Carbonate-Cholecalciferol) 600-400 mg-Unit Tab 1 Tab PO DAILY Benicar Hct (Olmesartan-Hydrochlorothiazide) 40-25 mg Tab 1 Tab PO DAILY Aspirin 81 Mg Tabdr 162 Mg PO DAILY Review of Systems Except as stated in HPI: all other systems reviewed are Neg Physical Exam Narrative GENERAL: Elderly 76 year-old woman, sluggishly responsive, pale, chronically ill -appearing. SKIN: Focused skin assessment warm/dry. Pale. Dry mucous membranes. HEAD: Atraumatic. Normocephalic. EYES: Pupils equal and round. No scleral icterus. No injection or drainage. ENT: No nasal bleeding or discharge. Mucous membranes pink and moist. NECK: Trachea midline. No JVD. CARDIOVASCULAR: Regular rate and rhythm. No murmur appreciated. RESPIRATORY: No accessory muscle use. Clear to auscultation. Breath sounds equal bilaterally. GASTROINTESTINAL: Abdomen soft, non-tender, nondistended. Hepatic and splenic margins not palpable. MUSCULOSKELETAL: No obvious deformities. Decreased muscle bulk. NEUROLOGICAL: Sluggish, no obvious focal deficits. Data Data Last Documented VS Vital Signs Date Time Temp Pulse Resp B/P (MAP) Pulse Ox O2 Delivery O2 Flow Rate FiO2 06/29/17 21:45 91 18 157/81 (106) 97 Nasal Cannula 2.00 06/29/17:17 98.1 Orders Orders Electrocardiogram (06/29/17 19:28) Complete Blood Count With Diff (06/29/17 19:28) Comprehensive Metabolic Panel (06/29/17 19:28) Prothrombin Time / Inr (Pt) (06/29/17 19:28) Act Partial Throm Time (Ptt) (06/29/17 19:28) Troponin I (06/29/17 19:28) Thyroid Stimulating Hormone (06/29/17 19:28) Urinalysis - C+S If Indicated (06/29/17 19:28) Lactic Acid Sepsis Protocol (06/29/17 19:28) Blood Culture (06/29/17 19:28) Chest, Single Ap (06/29/17 19:28) Ct Brain W/O Iv Contrast(Rout) (06/29/17 19:28) Blood Glucose (06/29/17 19:28) Ecg Monitoring (06/29/17 19:28) Iv Access Insert/Monitor (06/29/17 19:28) Cath For Specimen (06/29/17 19:28) Oximetry (06/29/17 19:28) Sodium Chloride 0.9% Flush (Ns Flush) (06/29/17 19:30) Sodium Chlor 0.9% 1000 Ml Inj (Ns 1000 M (06/29/17 19:28) Admit Order (Ed Use Only) (06/29/17 ) Labs Laboratory Tests Test 06/29/17 19:30 06/29/17 21:10 White Blood Count 3.6 TH/MM3 Red Blood Count 2.40 MIL/MM3 Hemoglobin 8.8 GM/DL Hematocrit 24.5 % Mean Corpuscular Volume 102.5 FL Mean Corpuscular Hemoglobin 36.9 PG Mean Corpuscular Hemoglobin Concent 36.0 % Red Cell Distribution Width 16.8 % Platelet Count 320 TH/MM3 Mean Platelet Volume 6.2 FL Neutrophils (%) (Auto) 56.4 % Lymphocytes (%) (Auto) 16.9 % Monocytes (%) (Auto) 22.4 % Eosinophils (%) (Auto) 3.7 % Basophils (%) (Auto) 0.6 % Neutrophils # (Auto) 2.0 TH/MM3 Lymphocytes # (Auto) 0.6 TH/MM3 Monocytes # (Auto) 0.8 TH/MM3 Eosinophils # (Auto) 0.1 TH/MM3 Basophils # (Auto) 0.0 TH/MM3 CBC Comment AUTO DIFF Differential Comment AUTO DIFF CONFIRMED Platelet Estimate NORMAL Platelet Morphology Comment NORMAL Ovalocytes 1+ Prothrombin Time 11.0 SEC Prothromb Time International Ratio 1.0 RATIO Activated Partial Thromboplast Time 26.3 SEC Blood Urea Nitrogen 17 MG/DL Creatinine 0.91 MG/DL Random Glucose 92 MG/DL Total Protein 6.2 GM/DL Albumin 2.7 GM/DL Calcium Level 9.5 MG/DL Alkaline Phosphatase 69 U/L Aspartate Amino Transf (AST/SGOT) 21 U/L Alanine Aminotransferase (ALT/SGPT) 15 U/L Total Bilirubin 0.4 MG/DL Sodium Level 130 MEQ/L Potassium Level 3.1 MEQ/L Chloride Level 93 MEQ/L Carbon Dioxide Level 26.5 MEQ/L Anion Gap 11 MEQ/L Estimat Glomerular Filtration Rate 60 ML/MIN Lactic Acid Level 1.2 mmol/L Troponin I LESS THAN 0.02 NG/ML Thyroid Stimulating Hormone 3rd Gen 0.286 uIU/ML Urine Color LIGHT-YELLOW Urine Turbidity CLEAR Urine pH 5.0 Urine Specific [place] 1.009 Urine Protein NEG mg/dL Urine Glucose (UA) NEG mg/dL Urine Ketones NEG mg/dL Urine Occult Blood NEG Urine Nitrite NEG Urine Bilirubin NEG Urine Urobilinogen LESS THAN 2.0 MG/DL Urine Leukocyte Esterase TRACE Urine RBC LESS THAN 1 /hpf Urine WBC LESS THAN 1 /hpf Urine Squamous Epithelial Cells <1 /hpf Urine Granular Casts 4 /lpf Microscopic Urinalysis Comment CATH-CULT NOT IND MDM Medical Decision Making Medical Screen Exam Complete: Yes Emergency Medical Condition: Yes Interpretation(s) My review of EKG: Sinus tachycardia rate of 101, normal axis, right bundle branch block, no definite evidence of acute ischemia. LABS: CBC remarkable for mild anemia CMP is unremarkable, moderate hypoproteinemia TSH 0.[address]: Normal Unremarkable. Differential Diagnosis Infection, anemia, dehydration, head bleed, other Narrative Course Medical decision making INITIAL: 76-year-old woman presents emergency department with decreased responsiveness, appears anemic, possibly with infection, we'll check labs CT x- ray chest EKG and urinalysis. FINAL: Initial workups unremarkable. Patient still with significant altered mental status, not really verbalizing or speaking at all, lethargic. We'll plan on admission for observation. Robi Colon MD Jun 29, 2017 21:09
[2017-06-29 21:37] LABS: OVALOCYTES 1+ (NORMAL); PLATELET ESTIMATE SMEAR NORMAL (NORMAL); PLATELET MORPHOLOGY NORMAL (NORMAL); SCAN/DIFF AUTO DIFF CONFIRMED
[2017-06-29 21:45] VITALS: BP 157/81; PULSE 91; RESP 18; O2SAT 97
[2017-06-29 22:14] LABS: BLOOD, URINE NEG (NEG); GLUCOSE,URINE NEG (NEG); GRANULAR CAST, URINE 4 /lpf; KETONE, URINE NEG (NEG); NITRITE,URINE NEG (NEG); SQUAMOUS EPITHELIAL CELL URINE <1 /hpf (0-5); URINE COLOR LIGHT-YELLOW (YELLW/STRAW)
[2017-06-29 22:16] LABS: COMMENT (UR) CATH-CULT NOT IND; CULTURE IF INDICATED CATH CULTURE NOT IND
[2017-06-29] MEDS ORDERED: SODIUM CHLORIDE 0.9% FLUSH 10 ML FLUSH IV FLUSH PRN (23:00)
[2017-06-29] MEDS ORDERED: NALOXONE HCL 0.4 MG/ML AMP IV PUSH PRN (23:00)
[2017-06-29] MEDS ORDERED: LACTULOSE SYRUP 20 GM/30 ML CUP PO PRN (23:00)
[2017-06-29] MEDS ORDERED: SENNOSIDES 8.6 MG TAB PO PRN (23:00)
[2017-06-29] MEDS ORDERED: BISACODYL 10 MG SUPP RECTAL PRN (23:00)
[2017-06-29] MEDS ORDERED: MAGNESIUM HYDROXIDE SUSP 30 ML CUP PO PRN (23:00)
--- NOTE | 2017-06-29 23:04 | HHI.HP ---
[facility] Service [place] [facility] Primary Care Physician Cole Henao MD Admission Diagnosis altered mental status Diagnoses: Chief Complaint: she does not know, ams per Travel History International Travel<30 Days: No Contact w/Intl Traveler <30 Da: No Traveled to Known Affected Are: No History of Present Illness Written by HOPE Moran acting as scribe for [Juan Carlos] on 06/29/17 at 23:03. 76 y/o female with a history of mesothelioma currently undergoing chemo, gerd, fibromyalgia, HLD, HTN, Hypothyroid, tachycardia and neuropathy was brought to the ED with altered mental status. Patient is lethargic and does not know the reason she is here. is not at the bedside for questioning. Per the ED physician the states she is more lethargic than normal. She is currently receiving chemotherapy with Dr. Lao and her last chemo was 3 weeks ago. She denies any chest pain. Review of Systems ROS Limitations: Poor Historian Past Family Social History Past Medical History Right mesothelioma Recurrent right pleural effusions Right breast cancer that occurred twice, first time treated with lumpectomy second time treated with mastectomy Reflux disease, urinary infection, fibromyalgia, anxiety Hyperlipidemia episode of tachycardia Hypertension Collagen colitis irritable bowel syndrome hypothyroidism neck pain headache Stroke diagnosed on MRI at an episode of slurred speech however this now recovered Neuropathy Past Surgical History Numerous right thoracenteses Tonsillectomy C-spine fusion L-spine fusion Appendectomy Right mastectomy Hysterectomy Right total knee replacement Left carpal tunnel release Right mid finger fusion Reported Medications Reported Meds & Active Scripts Active Reported Oxycontin (Oxycodone HCl) 15 Mg Tab PO Q12HR Savella (Milnacipran) 50 Mg Tab 50 Mg PO BID Ambien (Zolpidem Tartrate) 10 Mg Tab 10 Mg PO HS PRN Prilosec (Omeprazole) 10 Mg Cap 10 Mg PO DAILY Multivitamin Women (Multiple Vitamins W/ Minerals) 1 Tab Tab 1 Tab PO DAILY Synthroid (Levothyroxine Sodium) 112 Mcg Tab 112 Mcg PO DAILY Zetia (Ezetimibe) 10 Mg Tab 10 Mg PO DAILY Lay SaldanaDuloxetine HCl) 30 Mg Capdr 30 Mg PO BID B-12 Dots (Cyanocobalamin) 500 Mcg Tab 500 Mcg SL DAILY Flexeril (Cyclobenzaprine HCl) 10 Mg Tab 10 Mg PO HS Calcium 600 with Vitamin D (Calcium Carbonate-Cholecalciferol) 600-400 mg-Unit Tab 1 Tab PO DAILY Benicar Hct (Olmesartan-Hydrochlorothiazide) 40-25 mg Tab 1 Tab PO DAILY Aspirin 81 Mg Tabdr 162 Mg PO DAILY Allergies: Coded Allergies: adhesive (Unverified Allergy, Severe, REDNESS,RASH, 06/29/17) latex (Unverified Allergy, Intermediate, RED RASH, 06/29/17) Sulfa (Sulfonamide Antibiotics) (Unverified Allergy, Mild, HIVES, 06/29/17 ) acetaminophen (Unverified Allergy, Mild, ITCHING, 06/29/17) hydrocodone (Unverified Allergy, Mild, ITCHING, 06/29/17) Active Ordered Medications Current Medications Medications (Trade) Dose Ordered Sig/Judd Route Start Time Stop Time Status Last Admin Sodium Chloride 1,000 ml @ 65 mls/hr [id number] IV 06/29/17 22:46 (NS Flush) 2 ml UNSCH PRN IV FLUSH 06/29/17 23:00 (NS Flush) 2 ml BID IV FLUSH 06/30/17 09:00 (Narcan Inj) 0.4 mg UNSCH PRN IV PUSH 06/29/17 23:00 (Milk Of Magnesia Liq) 30 ml Q12H PRN PO 06/29/17 23:00 (Senokot) 17.2 mg Q12H PRN PO 06/29/17 23:00 (Dulcolax Supp) 10 mg DAILY PRN RECTAL 06/29/17 23:00 (Lactulose Liq) 30 ml DAILY PRN PO 06/29/17 23:00 (Ecotrin Ec) 162 mg DAILY PO 06/30/17 09:00 (Cymbalta Dr) 30 mg BID PO 06/30/17 09:00 Potassium Chloride 100 ml @ 100 mls/hr Q1H IV 06/29/17 23:00 06/30/17 01:59 Family History Father at the age of 93 of old age, mother is alive and is 97, brother has COPD, sister has breast cancer Social History Does not smoke, drinks 1 glass of gin a day, no illicit drug use, lives with Physical Exam Vital Signs Vital Signs Date Time Temp Pulse Resp B/P (MAP) Pulse Ox O2 Delivery O2 Flow Rate FiO2 06/29/17 21:45 91 18 157/81 (106) 97 Nasal Cannula 2.00 06/29/17 19:59 18 99 Nasal Cannula 2.00 06/29/17 19:17 98.1 105 18 136/63 (87) 97 Physical Exam GENERAL: This is an ill looking patient who is lethargic SKIN: No rashes, ecchymoses or lesions. Cool and dry. HEAD: Atraumatic. Normocephalic. EYES: Pupils equal round and reactive. ENT: Nose without bleeding, purulent drainage or septal hematoma. Airway patent. NECK: Trachea midline. No JVD or lymphadenopathy. CARDIOVASCULAR: Regular rate and rhythm without murmurs, gallops, or rubs. RESPIRATORY: Clear to auscultation. Breath sounds equal bilaterally. No wheezes , rales, or rhonchi. GASTROINTESTINAL: Abdomen soft, non-tender, nondistended. MUSCULOSKELETAL: Extremities without clubbing, cyanosis, or edema. Generalized weakness. No joint tenderness, effusion, or edema noted. No calf tenderness. NEUROLOGICAL: Lethargic and confused. Motor and sensory grossly within normal limits. Normal speech. Laboratory Laboratory Tests Test 06/29/17 19:30 06/29/17 21:10 White Blood Count 3.6 Red Blood Count 2.40 Hemoglobin 8.8 Hematocrit 24.5 Mean Corpuscular Volume 102.5 Mean Corpuscular Hemoglobin 36.9 Mean Corpuscular Hemoglobin Concent 36.0 Red Cell Distribution Width 16.8 Platelet Count 320 Mean Platelet Volume 6.2 Neutrophils (%) (Auto) 56.4 Lymphocytes (%) (Auto) 16.9 Monocytes (%) (Auto) 22.4 Eosinophils (%) (Auto) 3.7 Basophils (%) (Auto) 0.6 Neutrophils # (Auto) 2.0 Lymphocytes # (Auto) 0.6 Monocytes # (Auto) 0.8 Eosinophils # (Auto) 0.1 Basophils # (Auto) 0.0 CBC Comment AUTO DIFF Differential Comment AUTO DIFF CONFIRMED Platelet Estimate NORMAL Platelet Morphology Comment NORMAL Ovalocytes 1+ Prothrombin Time 11.0 Prothromb Time International Ratio 1.0 Activated Partial Thromboplast Time 26.3 Blood Urea Nitrogen 17 Creatinine 0.91 Random Glucose 92 Total Protein 6.2 Albumin 2.7 Calcium Level 9.5 Alkaline Phosphatase 69 Aspartate Amino Transf (AST/SGOT) 21 Alanine Aminotransferase (ALT/SGPT) 15 Total Bilirubin 0.4 Sodium Level 130 Potassium Level 3.1 Chloride Level 93 Carbon Dioxide Level 26.5 Anion Gap 11 Estimat Glomerular Filtration Rate 60 Lactic Acid Level 1.2 Troponin I LESS THAN 0.02 Thyroid Stimulating Hormone 3rd Gen 0.286 Urine Color LIGHT-YELLOW Urine Turbidity CLEAR Urine pH 5.0 Urine Specific [place] 1.009 Urine Protein NEG Urine Glucose (UA) NEG Urine Ketones NEG Urine Occult Blood NEG Urine Nitrite NEG Urine Bilirubin NEG Urine Urobilinogen LESS THAN 2.0 Urine Leukocyte Esterase TRACE Urine RBC LESS THAN 1 Urine WBC LESS THAN 1 Urine Squamous Epithelial Cells <1 Urine Granular Casts 4 Microscopic Urinalysis Comment CATH-CULT NOT IND Date/Time Source Procedure Growth Status 06/29/17 19:45 Blood Peripheral Aerobic Blood Culture Pending Received 06/29/17 19:45 Blood Peripheral Anaerobic Blood Culture Pending Received Result Diagram: 06/29/17192906/29/171929 Imaging Last Impressions Head CT 06/29/171927 Signed Impressions: Service Date/Time: Thursday, June 29, 2017 20:02 - CONCLUSION: Normal examination for a patient of this age. Amari Murray MD Chest X-Ray 06/29/171927 Signed Impressions: Service Date/Time: Thursday, June 29, 2017 19:30 - CONCLUSION: 1. Improved right-sided airspace disease and pleural effusions since August 2016. Minimal left basilar atelectasis. Amari Murray MD Caprini VTE Risk Assessment Caprini VTE Risk Assessment: Mod/High Risk (score >= 2) Caprini Risk Assessment Model Point Value = 1 Point Value = 2 Point Value = 3 Point Value = 5 Age 41-60 Minor surgery BMI > 25 kg/m2 Swollen legs Varicose veins or History of unexplained or recurrent spontaneous Oral contraceptives or hormone replacement Sepsis (< 1 month) Serious lung disease, including pneumonia (< 1 month) Abnormal pulmonary function Acute myocardial infarction Congestive heart failure (< 1 month) History of inflammatory bowel disease Medical patient at bed rest Age 61-74 Arthroscopic surgery Major open surgery (> 45 min) Laparoscopic surgery (> 45 min) Malignancy Confined to bed (> 72 hours) Immobilizing plaster cast Central venous access Age >= 75 History of VTE Family history of VTE Factor V Leiden Prothrombin [id number] Lupus anticoagulant Anticardiolipin antibodies Elevated serum homocysteine Heparin-induced thrombocytopenia Other congenital or acquired thrombophilia Stroke (< 1 month) Elective arthroplasty Hip, pelvis, or leg fracture Acute spinal cord injury (< 1 month) Prophylaxis Regimen Total Risk Factor Score Risk Level Prophylaxis Regimen 0-1 Low Early ambulation 2 Moderate Order ONE of the following: *Sequential Compression Device (SCD) *Heparin 5000 units SQ BID 3-4 Higher Order ONE of the following medications: *Heparin 5000 units SQ TID *Enoxaparin/Lovenox 40 mg SQ daily (WT < 150 kg, CrCl > 30 mL/min) *Enoxaparin/Lovenox 30 mg SQ daily (WT < 150 kg, CrCl > 10-29 mL/min) *Enoxaparin/Lovenox 30 mg SQ BID (WT < 150 kg, CrCl > 30 mL/min) AND/OR *Sequential Compression Device (SCD) 5 or more Highest Order ONE of the following medications: *Heparin 5000 units SQ TID (Preferred with Epidurals) *Enoxaparin/Lovenox 40 mg SQ daily (WT < 150 kg, CrCl > 30 mL/min) *Enoxaparin/Lovenox 30 mg SQ daily (WT < 150 kg, CrCl > 10-29 mL/min) *Enoxaparin/Lovenox 30 mg SQ BID (WT < 150 kg, CrCl > 30 mL/min) AND *Sequential Compression Device (SCD) Assessment and Plan Problem List: (1) Encephalopathy acute ICD Code: G93.40 - Encephalopathy, unspecified (2) Mesothelioma ICD Code: C45.9 - Mesothelioma, unspecified Status: Acute (3) Hypothyroidism ICD Code: E03.9 - Hypothyroidism, unspecified Status: Acute Assessment and Plan 76 y/o female with a history of mesothelioma currently undergoing chemo, gerd, fibromyalgia, HLD, HTN, Hypothyroid, tachycardia and neuropathy was brought to the ED with altered mental status. Encephalopathy, acute, likely due to multiple pain medications at home Head CT reviewed and shows no acute abnormalities ABG on 3.5 L reviewed and shows PH 7.36 CO2 43 UA negative -Hold home OxyContin, Flexeril and Ambien -Cont Neuro checks -Pt eval and treat -IVF for hydration Hypomagnesium and hypokalemia, potassium 3.1, mag 1.3 -Supplementation ordered, labs in am, replace as needed Hypothyroidism, chronic, TSH low at .28 -Hold Synthroid for now and check T4 Mesothelioma, chronic -Consult oncology, patient known to Dr. Dominique DVT prophylaxis: SCDs Discussed Condition With Patient and ED physician Physician Certification 2 Midnight Certification Type: Admission for Inpatient Services Order for Inpatient Services The services are ordered in accordance with Medicare regulations or non- Medicare payer requirements, as applicable. In the case of services not specified as inpatient-only, they are appropriately provided as inpatient services in accordance with the 2-midnight benchmark. Estimated LOS (days): 2 days is the estimated time the patient will need to remain in the hospital, assuming treatment plan goals are met and no additional complications. Post-Hospital Plan: Not yet determined Notes: This note was transcribed by peace Rabago. I, Dr. Taye Rangel personally performed the history, physical exam, and medical decision making; and confirmed the accuracy of the information in the transcribed note. Authenticated by Dr. Taye Rangel on 06/30/17 at 01:03. Daily Rabago Jun 29, 2017 23:04 Taye Rangel MD Jun 30, 2017 01:03
[2017-06-29] MEDS: SODIUM CHLOR 0.9% 1000 ML INJ 1,000 ML IV SCH (23:27)
[2017-06-29 23:32] LABS: BLOOD GAS BASE EXCESS -0.6 mmol/L (-2-2); BLOOD GAS CARBOXYHEMOGLOBIN 1.5 % (0-4); BLOOD GAS HCO3 24 mmol/L (22-26); BLOOD GAS METHEMOGLOBIN 0.6 % (0-2); BLOOD GAS O2 HGB SATURATION 98 % (90-100); BLOOD GAS OXYGEN CONTENT 12.1 Vol % (12.0-20.0); BLOOD GAS PCO2 43 mmHg (38-42); BLOOD GAS PO2 196 mmHG (61-120); BLOOD GAS TOTAL HGB 8.5 G/DL (12.0-16.0); CRITICAL VALUE NO; DRAW SITE RT RADIAL; LITER FLOW 3.5 L/M; NUMBER OF ARTERIAL PUNCTURES 1; OXYGEN DEVICE NASAL CANNULA; TEMP CORR TO 98.6
[2017-06-29 23:33] LABS: STAT YES; ULNAR PULSE PRESENT
[2017-06-29] MEDS: POTASSIUM CHLOR 10 MEQ PREMIX 100 ML IV SCH (23:33)
[2017-06-30] VITALS (8 sets, daily range): BP systolic 139–183; BP diastolic 78–103; PULSE 74–96; RESP 14–18; TEMP 97.8–98.1; O2SAT 96–100
[2017-06-30] MEDS ORDERED: MAGNESIUM SULFATE 1 GM PREMIX 100 ML IV ONE
[2017-06-30] MEDS: POTASSIUM CHLOR 10 MEQ PREMIX 100 ML IV SCH (04:39)
--- NOTE | 2017-06-30 08:29 | HHI.PR ---
Subjective Remarks patient wide awake and alert taking po fluids well she was seen and ambulated with PT- with a walker patient states she has a walker at home when asked about pain meds- admits that she states she has been having "discussion" with regarding her pain meds Objective Vitals Vital Signs Date Time Temp Pulse Resp B/P (MAP) Pulse Ox O2 Delivery O2 Flow Rate FiO2 06/30/17 07:50 98.0 96 16 169/85 (113) 100 06/30/17 03:36 98.0 94 18 178/84 (115) 98 06/30/17 01:00 98.0 74 18 151/78 (102) 97 06/29/17 23:57 06/29/17 21:45 91 18 157/81 (106) 97 Nasal Cannula 2.00 06/29/17 19:59 18 99 Nasal Cannula 2.00 06/29/17 19:17 98.1 105 18 136/63 (87) 97 I/O 06/29/17 06/29/17 06/29/17 06/30/17 06/30/17 06/30/17 07:00 15:00 23:00 07:00 15:00 23:00 Intake Total 1000 ml Output Total 150 ml Balance -150 ml 1000 ml Intake IV Total 1000 ml Output Urine Total 150 ml # Voids 1 Result Diagram: 06/29/17192906/29/171929 Imaging Last Impressions Head CT 06/29/171927 Signed Impressions: Service Date/Time: Thursday, June 29, 2017 20:02 - CONCLUSION: Normal examination for a patient of this age. Amari Murray MD Chest X-Ray 06/29/171927 Signed Impressions: Service Date/Time: Thursday, June 29, 2017 19:30 - CONCLUSION: 1. Improved right-sided airspace disease and pleural effusions since August 2016. Minimal left basilar atelectasis. Amari Murray MD Objective Remarks awak eand alert, no acute distress anicteric lungs- no rales or wheezes regular rhythm abdomen soft, nontender extremities no edema, no calf swelling moves all extremities spontaneously A/P Problem List: (1) Encephalopathy acute ICD Code: G93.40 - Encephalopathy, unspecified (2) Mesothelioma ICD Code: C45.9 - Mesothelioma, unspecified Status: Acute (3) Hypothyroidism ICD Code: E03.9 - Hypothyroidism, unspecified Status: Acute Assessment and Plan 76 y/o female with a history of mesothelioma currently undergoing chemo, gerd, fibromyalgia, HLD, HTN, Hypothyroid, tachycardia and neuropathy was brought to the ED with altered mental status. Encephalopathy, acute, likely due to multiple pain medications at home - Resolved Head CT reviewed and shows no acute abnormalities ABG on 3.5 L reviewed and shows PH 7.36 CO2 43 UA negative - neuro stable- now awake and alert -Hold home OxyContin, Flexeril and Ambien -Cont Neuro checks -Pt eval and treat - seen this am- states baseline ambulates with a walker- states she got all equipments at home Hypomagnesium and hypokalemia, potassium 3.1, mag 1.3 Hyponatremia- no sign of fluid excess- review old labs- seems chronic - replaced Mg and K labs this am- pending. replace accordingly Hypothyroidism, chronic, TSH low at .28 but not suppressed -continue Synthroid - recheck as OP Mesothelioma, -Consult oncology, patient known to Dr. Dominique Chronic respiratory failure- stable on home 02- 3LNC- continue Incentive spirometry hourly 8 am- 8 pm Macrocytic anemia- chronic - H and H stable check iron studies, B12, folate CAse management consult- arrange for home health nursing/PT- check on meds home PT arrangements 4: 30 pm d/w - states she has been on oxycontin CR bid and percocet 10 q 6 was recently added ambien and flexeril and Temazepam we will restart her Percocet 10 q 6 prn DVT prophylaxis: SCDs Discussed Condition With patient Octaviano Moses MD Jun 30, 2017 08:29
--- NOTE | 2017-06-30 08:32 | HHI.FF ---
Face to Face Verification Diagnosis: (1) Mesothelioma (2) Encephalopathy acute Physical Therapy Order: Evaluate and Treat, Improve ambulation Speech Therapy Order: To Improve: Cognitive skills Home Health Nursing Order: Medical education Signs/symptoms of disease process Oxygen administration education Nursing assessment with vital signs I have seen patient Maddie Guzman on 06/30/17. My clinical findings support the need for the requested home health care services because: Ltd mobility - disease progression Deconditioned w/ increased weakness Med compliance is questionable Need for psychosocial assistance High risk of falls I certify that my clinical findings support that this patient is homebound because: Need for psychosocial assistance Octaviano Moses MD Jun 30, 2017 08:32
[2017-06-30] MEDS: SODIUM CHLORIDE 0.9% FLUSH 10 ML FLUSH IV FLUSH SCH ×2 (09:00→20:07)
[2017-06-30] MEDS: DULoxetine HCl DR 30 MG CAP PO SCH ×2 (09:00→20:08)
[2017-06-30] MEDS: ASPIRIN EC 81 MG TABEC PO SCH (10:34)
--- NOTE | 2017-06-30 13:35 | MB ---
cc: MANOJ RIVERA M.D., ALFEA DATE OF CONSULTATION: 06/30/2017 REASON FOR CONSULTATION Oncology consulted to render an opinion regarding a patient with mesothelioma admitted with mental status change. HISTORY OF PRESENT ILLNESS The patient is a very pleasant 76-year-old female with malignant mesothelioma of the right lung currently on the chemotherapy brought in to the emergency room by her with complaint of mental status change. The patient reportedly has increased lethargy and mental status is a little altered. She had the last dose of Alimta on June 11. This morning she is feeling much better. She stated that the reason for lethargy is due to her medication. She takes morphine twice a day, she takes Percocet as needed, she also takes temazepam and Flexeril. She denies any fever or chills. She has no chest pain. She denies significant shortness of breath. She has mild dyspnea on exertion. She has occasional nausea without vomiting. She has chronic abdominal discomfort but that has been better lately. Denies any diarrhea. She has muscle ache all over and hence she is taking Flexeril and morphine. She stated she is eating well and drinking plenty of water. PAST MEDICAL HISTORY 1. Malignant right lung pleural mesothelioma treated with cisplatin and Alimta as well as Avastin and she is currently on maintenance Alimta. 2. Gastroesophageal reflux disease. 3. Fibromyalgia. 4. Hypertension. 5. Hyperlipidemia. 6. Hypothyroidism. 7. Recurrent right pleural effusion. 8. Right breast cancer twice. 9. Anxiety. 10. Irritable bowel syndrome. 11. Collagenous colitis. 12. Stroke. PAST SURGICAL HISTORY 1. Multiple right thoracentesis. 2. Pleurodesis. 3. Fusion of cervical spine. 4. Appendectomy. 5. Lumpectomy. 6. Mastectomy. 7. Hysterectomy. 8. Right total knee replacement. 9. Carpal tunnel release. 10. Finger surgery. FAMILY HISTORY Noncontributory. SOCIAL HISTORY Tobacco use. She drinks occasionally. ALLERGIES SULFA DRURS, ACETAMENOPHEN, HYDROCODONE, LATEX, ADHESIVE. CURRENT MEDICATIONS 1. Aspirin. 2. Cymbalta. REVIEW OF SYSTEMS CONSTITUTIONAL: As above. EYES: Negative. ENT: Negative. CARDIOVASCULAR: Denies any chest pressure or palpitation. RESPIRATORY: As above. GASTROINTESTINAL: As above. GENITOURINARY: Negative. MUSCULOSKELETAL: As above. HEMATOLOGIC: Negative. ENDOCRINE: Negative. DERMATOLOGIC: Negative. PSYCHIATRIC: As above. NEUROLOGIC: As above. PHYSICAL EXAMINATION VITAL SIGNS: Temperature 98, blood pressure 169/85, O2 saturation 100% on 2 liters nasal cannula. GENERAL: She is alert, oriented x3. She is a little weak. HEENT: Atraumatic, normocephalic. Pupils equal, round and reactive to light. Oropharynx - dry mucosa, no lesion. NECK: No thyromegaly. No palpable mass. LYMPHATICS: No palpable cervical, clavicular or axillary lymph nodes. CARDIOVASCULAR: Regular S1 and S2. LUNGS: Decreased breath sounds in the right lung. No significant wheezing. ABDOMEN: Abdomen is soft. There is soreness in the mid epigastric area. Positive bowel sounds. EXTREMITIES: No cyanosis. No significant clubbing or edema. BACK: No paravertebral tenderness or kyphosis. SKIN: No rash or petechiae. Decreased skin turgor. NEUROLOGIC: Exam nonfocal. LABORATORY DATA Laboratory data reviewed ASSESSMENT 1. Acute mental status change, likely medication induced. She was brought in to the hospital with altered mental status and increased lethargy. She was taking morphine, Percocet, temazepam and Flexeril at night. Since holding the medication, mental status has improved. CT of the head did not show any acute changes. I told her not to take the Flexeril and temazepam. She can continue morphine for the pain and use the Percocet only as needed for breakthrough pain. 2. Malignant pleural mesothelioma. She presented with recurrent pleural effusion. She was treated with cisplatin and Alimta with a good response. She is currently on maintenance Alimta, her last dose was on June 11. She is supposed to see Dr. Lao again next week for continued treatment. 3. Chronic pain due to fibromyalgia and arthritis. She is on pain medicine as above. 4. History of right breast cancer without recurrent disease. RECOMMENDATIONS 1. I told the patient to stop the Flexeril and temazepam. She can continue the morphine but use the Percocet only as needed for breakthrough pain. 2. The patient could be discharged from an oncologic standpoint. 3. Followup with Dr. Lao next week to continue treatment for mesothelioma. Thank you Dr. Moses for asking me see this patient. MD JAY JAY Colón/COCO /10:47 AM /12:59 PM [facility]ENTERLinda
[2017-06-30 13:45] LABS: AUTOMATED NEUTROPHIL # 2.6 TH/MM3 (1.8-7.7); BASOPHIL % 0.7 % (0.0-2.0); EOSINOPHIL # 0.1 TH/MM3 (0-0.4); EOSINOPHIL % 2.6 % (0.0-4.0); HEMATOCRIT 24.2 % (35.0-46.0); LYMPH % 10.8 % (9.0-44.0); LYMPHOCYTE # 0.4 TH/MM3 (1.0-4.8); MEAN CELL VOLUME 100.7 FL (80.0-100.0); MEAN CORPUSCULAR HEMOGLOBIN 36.5 PG (27.0-34.0); MONO % 15.4 % (0.0-8.0); NEUT % 70.5 % (16.0-70.0); PLATELET COUNT 319 TH/MM3 (150-450); RED BLOOD COUNT 2.41 MIL/MM3 (4.00-5.30); RED CELL DISTRIBUTION WIDTH 16.6 % (11.6-17.2); WHITE BLOOD COUNT 3.7 TH/MM3 (4.0-11.0)
[2017-06-30 13:50] LABS: HEMO FLAGS AUTO DIFF; MEAN CORPUSCULAR HGB CONC 36.2 % (32.0-36.0)
[2017-06-30 14:07] LABS: ALT (GPT) 16 U/L (10-53); ANION GAP 6 MEQ/L (5-15); AST (GOT) 22 U/L (15-37); BICARBONATE 25.6 MEQ/L (21.0-32.0); BLOOD UREA NITROGEN 11 MG/DL (7-18); CHLORIDE 96 MEQ/L (98-107); GLOMERULAR FILTRATION RATE 97 ML/MIN (>89); MAGNESIUM 1.3 MG/DL (1.5-2.5); POTASSIUM 3.4 MEQ/L (3.5-5.1); SODIUM (NA) 128 MEQ/L (136-145)
[2017-06-30 14:10] LABS: ALKALINE PHOSPHATASE 79 U/L (45-117); FREE T4 1.62 NG/DL (0.76-1.46); TOTAL BILIRUBIN ADULT 0.5 MG/DL (0.2-1.0)
[2017-06-30] MEDS: SODIUM CHLOR 0.9% 1000 ML INJ 1,000 ML IV SCH (14:10)
[2017-06-30 14:33] LABS: ACANTHOCYTES OCC (NORMAL); FERRITIN 713 NG/ML (8-252); OVALOCYTES 1+ (NORMAL); TRANSFERRIN IRON PROFILE 218 MG/DL (200-360)
[2017-06-30 14:34] LABS: PLATELET ESTIMATE SMEAR NORMAL (NORMAL); PLATELET MORPHOLOGY NORMAL (NORMAL); SCAN/DIFF AUTO DIFF CONFIRMED
[2017-06-30] MEDS: MAGNESIUM SULFATE 1 GM PREMIX 100 ML IV SCH ×2 (15:15→16:29)
[2017-06-30] MEDS: POTASSIUM CHLORIDE 10 MEQ CONTROLLED RELEASE TAB PO SCH (15:20)
[2017-06-30] MEDS: LISINOPRIL 20 MG TAB PO SCH (15:20)
[2017-06-30] MEDS ORDERED: POTASSIUM CHLOR 10 MEQ PREMIX 100 ML IV ONE (16:00)
[2017-06-30] MEDS: oxyCODONE/ACETAMINOPHEN 10 MG/325 MG TAB PO PRN (17:09)
[2017-06-30] MEDS: MAGNESIUM OXIDE 400 MG TAB PO SCH (21:00)
[2017-07-01] VITALS (8 sets, daily range): BP systolic 134–188; BP diastolic 79–107; PULSE 77–96; RESP 16–24; TEMP 97.1–98.4; O2SAT 95–99
[2017-07-01] MEDS: oxyCODONE/ACETAMINOPHEN 10 MG/325 MG TAB PO PRN ×3 (00:25→21:28)
[2017-07-01] MEDS: cloNIDine HCL 0.1 MG TAB PO PRN ×3 (00:25→21:27)
[2017-07-01 07:08] LABS: BICARBONATE 25.9 MEQ/L (21.0-32.0); MAGNESIUM 1.4 MG/DL (1.5-2.5); POTASSIUM 3.5 MEQ/L (3.5-5.1)
[2017-07-01] MEDS: SODIUM CHLORIDE 0.9% FLUSH 10 ML FLUSH IV FLUSH SCH ×2 (09:00→21:00)
[2017-07-01] MEDS: MAGNESIUM OXIDE 400 MG TAB PO SCH ×2 (09:08→21:27)
[2017-07-01] MEDS: LISINOPRIL 20 MG TAB PO SCH (09:08)
[2017-07-01] MEDS: ASPIRIN EC 81 MG TABEC PO SCH (09:09)
[2017-07-01] MEDS: DULoxetine HCl DR 30 MG CAP PO SCH ×2 (09:09→21:27)
[2017-07-01] MEDS: POTASSIUM CHLORIDE 10 MEQ CONTROLLED RELEASE TAB PO SCH (09:10)
--- NOTE | 2017-07-01 10:35 | PD.ONC.PN ---
Subjective Subjective Remarks Afebrile overnight. Patient resting in bed in nad. States she feels much better today. Much more alert. Reports pain is controlled on current regimen. Objective Data Date Time Temp Pulse Resp B/P (MAP) Pulse Ox O2 Delivery O2 Flow Rate FiO2 07/01/17 07:00 98.3 83 17 150/94 (112) 97 07/01/17 03:00 98.4 86 20 172/107 (128) 96 07/01/17 01:35 83 16 134/79 (97) 95 07/01/17 01:34 16 06/30/17 23:00 89 16 183/103 (129) 96 06/30/17 19:30 97.9 90 14 139/84 (102) 96 06/30/17 16:24 98.1 96 18 145/88 (107) 99 06/30/17 12:37 162/97 (118) 06/30/17 11:31 97.8 87 18 163/94 (117) 100 07/01/17 07/01/17 07/01/17 07:00 15:00 23:00 Intake Total 480 ml Output Total 4 ml Balance 476 ml Result Diagram: 06/30/17 1325 07/01/17 0614 Laboratory Results Laboratory Tests Test 06/30/17 13:25 07/01/17 06:14 White Blood Count 3.7 TH/MM3 Red Blood Count 2.41 MIL/MM3 Hemoglobin 8.8 GM/DL Hematocrit 24.2 % Mean Corpuscular Volume 100.7 FL Mean Corpuscular Hemoglobin 36.5 PG Mean Corpuscular Hemoglobin Concent 36.2 % Red Cell Distribution Width 16.6 % Platelet Count 319 TH/MM3 Mean Platelet Volume 5.8 FL Neutrophils (%) (Auto) 70.5 % Lymphocytes (%) (Auto) 10.8 % Monocytes (%) (Auto) 15.4 % Eosinophils (%) (Auto) 2.6 % Basophils (%) (Auto) 0.7 % Neutrophils # (Auto) 2.6 TH/MM3 Lymphocytes # (Auto) 0.4 TH/MM3 Monocytes # (Auto) 0.6 TH/MM3 Eosinophils # (Auto) 0.1 TH/MM3 Basophils # (Auto) 0.0 TH/MM3 CBC Comment AUTO DIFF Differential Comment AUTO DIFF CONFIRMED Platelet Estimate NORMAL Platelet Morphology Comment NORMAL Ovalocytes 1+ Acanthocytes OCC Blood Urea Nitrogen 11 MG/DL 9 MG/DL Creatinine 0.60 MG/DL 0.64 MG/DL Random Glucose 92 MG/DL 84 MG/DL Total Protein 6.2 GM/DL Albumin 2.6 GM/DL Calcium Level 9.2 MG/DL 9.5 MG/DL Magnesium Level 1.3 MG/DL 1.4 MG/DL Alkaline Phosphatase 79 U/L Aspartate Amino Transf (AST/SGOT) 22 U/L Alanine Aminotransferase (ALT/SGPT) 16 U/L Total Bilirubin 0.5 MG/DL Sodium Level 128 MEQ/L 130 MEQ/L Potassium Level 3.4 MEQ/L 3.5 MEQ/L Chloride Level 96 MEQ/L 96 MEQ/L Carbon Dioxide Level 25.6 MEQ/L 25.9 MEQ/L Anion Gap 6 MEQ/L 8 MEQ/L Estimat Glomerular Filtration Rate 97 ML/MIN 90 ML/MIN Iron Level 33 MCG/DL Total Iron Binding Capacity 305 MCG/DL Percent Iron Saturation 10.8 % Ferritin 713 NG/ML Vitamin B12 Level 1943 PG/ML Folate GREATER THAN 20.0 NG/ML Free Thyroxine 1.62 NG/DL Culture Results Microbiology Date/Time Source Procedure Growth Status 06/29/17 19:45 Blood Peripheral Aerobic Blood Culture - Preliminary NO GROWTH IN 1 DAY Resulted 06/29/17 19:45 Blood Peripheral Anaerobic Blood Culture - Preliminary NO GROWTH IN 1 DAY Resulted 06/29/17 19:30 Blood Peripheral Aerobic Blood Culture - Preliminary NO GROWTH IN 1 DAY Resulted 06/29/17 19:30 Blood Peripheral Anaerobic Blood Culture - Preliminary NO GROWTH IN 1 DAY Resulted Administered Medications Medications (Trade) Dose Ordered Sig/Judd Route PRN Reason Start Time Stop Time Status Last Admin Dose Admin Sodium Chloride 1,000 ml @ 42 mls/hr [id number] IV 06/29/17 22:46 06/29/17 23:27 Aspirin (Ecotrin Ec) 162 mg DAILY PO 06/30/17 09:00 07/01/17 09:09 Duloxetine HCl (Cymbalta Dr) 30 mg BID PO 06/30/17 09:00 07/01/17 09:09 Lisinopril (Prinivil) 40 mg DAILY PO 06/30/17 15:15 07/01/17 09:08 Clonidine (Catapres) 0.1 mg Q6H PRN PO SBP>160, DBP>90 06/30/17 15:15 07/01/17 05:54 Potassium Chloride (KCl) 30 meq DAILY PO 06/30/17 15:15 07/01/17 09:10 Magnesium Oxide (Mag-Ox) 400 mg Q12HR PO 06/30/17 21:00 07/01/17 09:08 Oxycodone/ Acetaminophen (Percocet 10-325 Mg) 1 tab Q6H PRN PO PAIN 3-10 06/30/17 16:30 07/01/17 00:25 Objective Remarks GENERAL: Elderly female supine in bed resting. SKIN: Warm and dry. HEAD: Normocephalic. EYES: No injection or drainage. NECK: Supple, trachea midline. CARDIOVASCULAR: +S1/S2 RESPIRATORY: anterior rosales clear GASTROINTESTINAL: Abdomen soft, non-tender, nondistended. EXTREMITIES: No cyanosis NEUROLOGICAL: No obvious focal deficit. Awake, alert, and oriented x3. Assessment/Plan Problem List: (1) Encephalopathy acute ICD Codes: G93.40 - Encephalopathy, unspecified Status: Resolved Plan: --likely medication induced. --was taking morphine, Percocet, temazepam and Flexeril at night. --Since holding the medication, mental status has improved. --CT of the head did not show any acute changes. --an continue Percocet as needed for breakthrough pain. Assessment 76-year-old female with malignant mesothelioma of the right lung currently on the chemotherapy brought in to the emergency room by her with complaint of mental status change. The patient reportedly has increased lethargy and mental status is a little altered. She had the last dose of Alimta on June 11. h/o Malignant right lung pleural mesothelioma treated with cisplatin and Alimta as well as Avastin and she is currently on maintenance Alimta. Gastroesophageal reflux disease. Fibromyalgia. Hypertension. Hyperlipidemia. Hypothyroidism. Recurrent right pleural effusion. Right breast cancer twice. Anxiety. irritable bowel syndrome. Collagenous colitis. Stroke. Plan 1. continue to take Percocet as needed, hold Ambien and Flexeril and oxycontin 2. continue supportive care Attending Statement The exam, history, and the medical decision-making described in the above note were completed with the assistance of the mid-level provider. I reviewed and agree with the findings presented. I attest that I had a [id number] encounter with the patient on the same day, and personally performed and documented my assessment and findings in the medical record. Feeling better. Mental status improved. BCX + gram + cocci in 1 bottle likely contaminant. No fever or leukocytosis. Will watch another day and consider d/c if stable. Vicky Hargrove Jul 01, 2017 10:35 Derek Escobar MD Jul 01, 2017 11:59
[2017-07-01 12:27] LABS: AUTOMATED NEUTROPHIL # 2.1 TH/MM3 (1.8-7.7); BASOPHIL % 0.7 % (0.0-2.0); EOSINOPHIL # 0.1 TH/MM3 (0-0.4); EOSINOPHIL % 2.8 % (0.0-4.0); HEMATOCRIT 25.9 % (35.0-46.0); HEMO FLAGS DIFF FINAL; LYMPH % 13.5 % (9.0-44.0); LYMPHOCYTE # 0.4 TH/MM3 (1.0-4.8); MEAN CELL VOLUME 102.6 FL (80.0-100.0); MEAN CORPUSCULAR HEMOGLOBIN 35.5 PG (27.0-34.0); MEAN CORPUSCULAR HGB CONC 34.6 % (32.0-36.0); MONO % 14.7 % (0.0-8.0); NEUT % 68.3 % (16.0-70.0); PLATELET COUNT 285 TH/MM3 (150-450); RED BLOOD COUNT 2.53 MIL/MM3 (4.00-5.30); RED CELL DISTRIBUTION WIDTH 16.3 % (11.6-17.2)
[2017-07-01] MEDS: SODIUM CHLOR 0.9% 1000 ML INJ 1,000 ML IV SCH (12:54)
[2017-07-01] MEDS ORDERED: cefTRIAXone INJ 1,000 MG in SODIUM CHLORIDE 0.9% INJ 100 ML IV SCH (13:00)
[2017-07-01] MEDS: MAGNESIUM SULFATE 1 GM PREMIX 100 ML IV SCH ×2 (15:12→16:33)
--- NOTE | 2017-07-01 15:32 | HHI.PR ---
Subjective Remarks The patient was resting in bed comfortably. She said she felt less confused today. She did complain of continued diarrhea. She said she had purulent liquid stool yesterday which is slightly improved today. She says she has not been ambulating much. She has been tolerating a diet. Her was at bedside and her questions were answered. Discussed with nursing. Objective Vitals Vital Signs Date Time Temp Pulse Resp B/P (MAP) Pulse Ox O2 Delivery O2 Flow Rate FiO2 07/01/17 15:20 17 07/01/17 11:00 86 07/01/17 11:00 97.7 82 18 154/93 (113) 99 07/01/17 07:00 98.3 83 17 150/94 (112) 97 07/01/17 03:00 98.4 86 20 172/107 (128) 96 07/01/17 01:35 83 16 134/79 (97) 95 06/30/17 23:00 89 16 183/103 (129) 96 06/30/17 19:30 97.9 90 14 139/84 (102) 96 06/30/17 16:24 98.1 96 18 145/88 (107) 99 I/O 06/30/17 06/30/17 06/30/17 07/01/17 07/01/17 07/01/17 07:00 15:00 23:00 07:00 15:00 23:00 Intake Total 1412 ml 480 ml Output Total 4 ml Balance 1412 ml 476 ml Intake Oral 480 ml 480 ml IV Total 932 ml Stool Total 4 ml # Voids 2 4 Result Diagram: 07/01/17 1138 07/01/17 0614 Imaging Last Impressions Head CT 06/29/171927 Signed Impressions: Service Date/Time: Thursday, June 29, 2017 20:02 - CONCLUSION: Normal examination for a patient of this age. Amari Murray MD Chest X-Ray 06/29/171927 Signed Impressions: Service Date/Time: Thursday, June 29, 2017 19:30 - CONCLUSION: 1. Improved right-sided airspace disease and pleural effusions since August 2016. Minimal left basilar atelectasis. Amari Murray MD Objective Remarks GENERAL: Resting comfortably in bed. SKIN: No rashes, ecchymoses or lesions. Cool and dry. HEAD: Atraumatic. Normocephalic. EYES: Pupils equal round and reactive. ENT: Nose without bleeding, purulent drainage or septal hematoma. Airway patent. NECK: Trachea midline. No JVD or lymphadenopathy. CARDIOVASCULAR: Regular rate and rhythm without murmurs, gallops, or rubs. RESPIRATORY: Clear to auscultation. Breath sounds equal bilaterally. No wheezes , rales, or rhonchi. GASTROINTESTINAL: Abdomen soft, non-tender, nondistended. Hyperactive bowel sounds. MUSCULOSKELETAL: Extremities without clubbing, cyanosis, or edema. No joint tenderness, effusion, or edema noted. NEUROLOGICAL: Awake and alert. Motor and sensory grossly within normal limits. Normal speech. Medications and IVs Current Medications Medications (Trade) Dose Ordered Sig/Judd Route Start Time Stop Time Status Last Admin Sodium Chloride 1,000 ml @ 42 mls/hr [id number] IV 06/29/17 22:46 06/29/17 23:27 (NS Flush) 2 ml UNSCH PRN IV FLUSH 06/29/17 23:00 (NS Flush) 2 ml BID IV FLUSH 06/30/17 09:00 (Narcan Inj) 0.4 mg UNSCH PRN IV PUSH 06/29/17 23:00 (Milk Of Magnesia Liq) 30 ml Q12H PRN PO 06/29/17 23:00 (Senokot) 17.2 mg Q12H PRN PO 06/29/17 23:00 (Dulcolax Supp) 10 mg DAILY PRN RECTAL 06/29/17 23:00 (Lactulose Liq) 30 ml DAILY PRN PO 06/29/17 23:00 (Ecotrin Ec) 162 mg DAILY PO 06/30/17 09:00 07/01/17 09:09 (Cymbalta Dr) 30 mg BID PO 06/30/17 09:00 07/01/17 09:09 (Prinivil) 40 mg DAILY PO 06/30/17 15:15 07/01/17 09:08 (Catapres) 0.1 mg Q6H PRN PO 06/30/17 15:15 07/01/17 05:54 (KCl) 30 meq DAILY PO 06/30/17 15:15 07/01/17 09:10 (Mag-Ox) 400 mg Q12HR PO 06/30/17 21:00 07/01/17 09:08 (Percocet 10-325 Mg) 1 tab Q6H PRN PO 06/30/17 16:30 07/01/17 13:53 Ceftriaxone Sodium 1000 mg/ Sodium Chloride 100 ml @ 200 mls/hr Q24H IV 07/01/17 13:00 07/01/17 13:11 Magnesium Sulfate/ Dextrose 100 ml @ 100 mls/hr Q1H IV 07/01/17 14:30 07/01/17 16:29 07/01/17 15:12 A/P Problem List: (1) Encephalopathy acute ICD Code: G93.40 - Encephalopathy, unspecified Status: Resolved (2) Mesothelioma ICD Code: C45.9 - Mesothelioma, unspecified Status: Acute (3) Hypothyroidism ICD Code: E03.9 - Hypothyroidism, unspecified Status: Acute Assessment and Plan 76 y/o female with a history of mesothelioma currently undergoing chemo, gerd, fibromyalgia, HLD, HTN, Hypothyroid, tachycardia and neuropathy was brought to the ED with altered mental status. Encephalopathy, acute, likely due to multiple pain medications at home - Resolved Head CT reviewed and shows no acute abnormalities ABG on 3.5 L reviewed and shows PH 7.36 CO2 43 UA negative - neuro stable- now awake and alert -Hold home OxyContin, Flexeril and Ambien. Resume Percocet and monitor. -Cont Neuro checks -Pt eval and treat Bacteremia 1 blood culture positive for GPC, coag neg. Likely contaminant. - repeat blood cultures and monitor. Diarrhea Ongoing. - check C diff and stool culture. Hypomagnesium and hypokalemia, potassium 3.1, mag 1.3 Hyponatremia- no sign of fluid excess- review old labs- seems chronic - replaced Mg and K and monitor Hypothyroidism, chronic, TSH low at 0.28, free T4 slightly high. -continue Synthroid at lower dose of 100 mcg daily. - recheck as OP Mesothelioma, -Consult oncology, patient known to Dr. Lao Chronic respiratory failure- stable on home 02- 3LNC- continue Incentive spirometry hourly 8 am- 8 pm Macrocytic anemia- chronic - H and H stable check iron studies, B12, folate Case management consult- arrange for home health nursing/PT- check on meds home PT arrangements DVT prophylaxis: SCDs Discharge Planning Anticipate d/c home with C in 1-2 days Wisam Madera DO Jul 01, 2017 15:32
[2017-07-01] MEDS ORDERED: POTASSIUM CHLORIDE 25 MEQ EFFERVESCENT TAB PO ONE (16:00)
[2017-07-01] MEDS ORDERED: NON-FORMULARY DRUG (Olmesartan-Hydrochlorothiazide (Benicar Hct) 1 TAB) PO SCH (16:00)
--- NOTE | 2017-07-01 21:08 | EKG ---
Date Performed: 06/29/2017 Time Performed: 19:23:27 PTAGE: 76 years EKG: SINUS TACHYCARDIA POSSIBLE LEFT ATRIAL ENLARGEMENT RIGHT BUNDLE BRANCH BLOCK ABNORMAL ECG PREVIOUS TRACING : 08/24/2016 16.04 DOCTOR: Nba Govea Interpretating Date/Time 07/01/2017 20:58:58
[2017-07-02] VITALS (10 sets, daily range): BP systolic 139–190; BP diastolic 80–112; PULSE 77–96; RESP 16–30; TEMP 97.4–98; O2SAT 94–100
[2017-07-02] MEDS: SODIUM CHLOR 0.9% 1000 ML INJ 1,000 ML IV SCH
[2017-07-02] MEDS ORDERED: hydrALAZINE HCL 20 MG/ML VIAL IV PUSH ONE (01:00)
[2017-07-02 02:36] LABS: C. DIFF EPI 027 PRESUMPTIVE NEGATIVE (NEGATIVE)
[2017-07-02] MEDS: oxyCODONE/ACETAMINOPHEN 10 MG/325 MG TAB PO PRN (03:14)
[2017-07-02] MEDS: LEVOTHYROXINE SODIUM 100 MCG TAB PO SCH (06:21)
[2017-07-02 06:42] LABS: AUTOMATED NEUTROPHIL # 4.5 TH/MM3 (1.8-7.7); BASOPHIL % 0.5 % (0.0-2.0); EOSINOPHIL # 0.1 TH/MM3 (0-0.4); EOSINOPHIL % 1.3 % (0.0-4.0); HEMATOCRIT 26.3 % (35.0-46.0); LYMPH % 8.4 % (9.0-44.0); LYMPHOCYTE # 0.5 TH/MM3 (1.0-4.8); MEAN CELL VOLUME 100.4 FL (80.0-100.0); MEAN CORPUSCULAR HEMOGLOBIN 36.1 PG (27.0-34.0); MONO % 11.6 % (0.0-8.0); NEUT % 78.2 % (16.0-70.0); PLATELET COUNT 321 TH/MM3 (150-450); RED BLOOD COUNT 2.62 MIL/MM3 (4.00-5.30); RED CELL DISTRIBUTION WIDTH 16.1 % (11.6-17.2); WHITE BLOOD COUNT 5.7 TH/MM3 (4.0-11.0)
[2017-07-02 06:48] LABS: HEMO FLAGS AUTO DIFF
[2017-07-02 06:56] LABS: ANION GAP 9 MEQ/L (5-15); AST (GOT) 21 U/L (15-37); BICARBONATE 22.6 MEQ/L (21.0-32.0); BLOOD UREA NITROGEN 7 MG/DL (7-18); CHLORIDE 97 MEQ/L (98-107); GLOMERULAR FILTRATION RATE 125 ML/MIN (>89); MAGNESIUM 1.4 MG/DL (1.5-2.5); POTASSIUM 3.6 MEQ/L (3.5-5.1); SODIUM (NA) 129 MEQ/L (136-145)
[2017-07-02 06:57] LABS: ALT (GPT) 14 U/L (10-53)
[2017-07-02 06:59] LABS: ALKALINE PHOSPHATASE 74 U/L (45-117); TOTAL BILIRUBIN ADULT 0.5 MG/DL (0.2-1.0)
[2017-07-02] MEDS: LOSARTAN 50 MG TAB PO SCH (08:39)
[2017-07-02] MEDS: LISINOPRIL 20 MG TAB PO SCH (08:39)
[2017-07-02] MEDS: POTASSIUM CHLORIDE 10 MEQ CONTROLLED RELEASE TAB PO SCH (08:39)
[2017-07-02] MEDS: DULoxetine HCl DR 30 MG CAP PO SCH ×2 (08:39→20:05)
[2017-07-02] MEDS: HYDROCHLOROTHIAZIDE 25 MG TAB PO SCH (08:39)
[2017-07-02] MEDS: ASPIRIN EC 81 MG TABEC PO SCH (08:40)
[2017-07-02] MEDS: SODIUM CHLORIDE 0.9% FLUSH 10 ML FLUSH IV FLUSH SCH ×2 (08:40→20:06)
[2017-07-02] MEDS: MAGNESIUM OXIDE 400 MG TAB PO SCH ×2 (08:40→20:05)
[2017-07-02] MEDS ORDERED: ONDANSETRON HCL 4 MG/2 ML VIAL IV PUSH PRN (09:30)
[2017-07-02 09:44] LABS: SCAN/DIFF AUTO DIFF CONFIRMED
[2017-07-02] MEDS ORDERED: ONDANSETRON HCL 4 MG/2 ML VIAL IV PUSH ONE (09:45)
--- NOTE | 2017-07-02 10:34 | PD.ONC.PN ---
Subjective Subjective Remarks Afebrile overnight. Patient resting in bed, reporting some nausea this AM. She just took a bunch of pills, and relates the nausea to that. No vomiting. Objective Data Date Time Temp Pulse Resp B/P (MAP) Pulse Ox O2 Delivery O2 Flow Rate FiO2 07/02/17 08:16 97.4 96 16 158/94 (115) 97 07/02/17 03:00 94 07/02/17 03:00 97.4 92 24 139/80 (99) 98 07/02/17 00:45 187/112 (137) 07/02/17 00:00 97.8 82 30 184/110 (134) 100 07/01/17 23:00 77 07/01/17 20:00 97.1 84 24 188/107 (134) 97 07/01/17 19:00 96 07/01/17 15:20 17 07/01/17 15:00 81 07/01/17 15:00 79 17 153/87 (109) 97 07/01/17 11:00 86 07/01/17 11:00 97.7 82 18 154/93 (113) 99 07/02/17 07/02/17 07/02/17 07:00 15:00 23:00 Intake Total 480 ml Output Total 800 ml Balance -320 ml Result Diagram: 07/02/17 0549 07/02/17 0549 Laboratory Results Laboratory Tests Test 07/01/17 11:38 07/01/17 22:11 07/02/17 05:49 White Blood Count 3.0 TH/MM3 5.7 TH/MM3 Red Blood Count 2.53 MIL/MM3 2.62 MIL/MM3 Hemoglobin 9.0 GM/DL 9.5 GM/DL Hematocrit 25.9 % 26.3 % Mean Corpuscular Volume 102.6 FL 100.4 FL Mean Corpuscular Hemoglobin 35.5 PG 36.1 PG Mean Corpuscular Hemoglobin Concent 34.6 % 36.0 % Red Cell Distribution Width 16.3 % 16.1 % Platelet Count 285 TH/MM3 321 TH/MM3 Mean Platelet Volume 6.1 FL 6.1 FL Neutrophils (%) (Auto) 68.3 % 78.2 % Lymphocytes (%) (Auto) 13.5 % 8.4 % Monocytes (%) (Auto) 14.7 % 11.6 % Eosinophils (%) (Auto) 2.8 % 1.3 % Basophils (%) (Auto) 0.7 % 0.5 % Neutrophils # (Auto) 2.1 TH/MM3 4.5 TH/MM3 Lymphocytes # (Auto) 0.4 TH/MM3 0.5 TH/MM3 Monocytes # (Auto) 0.4 TH/MM3 0.7 TH/MM3 Eosinophils # (Auto) 0.1 TH/MM3 0.1 TH/MM3 Basophils # (Auto) 0.0 TH/MM3 0.0 TH/MM3 CBC Comment DIFF FINAL AUTO DIFF Differential Comment AUTO DIFF CONFIRMED Stool C. difficile Toxin (PCR) NEGATIVE Stl C. difficile Toxin Epiderm 027 PRESUMPTIVE NEGATIVE Blood Urea Nitrogen 7 MG/DL Creatinine 0.48 MG/DL Random Glucose 99 MG/DL Total Protein 6.3 GM/DL Albumin 2.7 GM/DL Calcium Level 9.3 MG/DL Magnesium Level 1.4 MG/DL Alkaline Phosphatase 74 U/L Aspartate Amino Transf (AST/SGOT) 21 U/L Alanine Aminotransferase (ALT/SGPT) 14 U/L Total Bilirubin 0.5 MG/DL Sodium Level 129 MEQ/L Potassium Level 3.6 MEQ/L Chloride Level 97 MEQ/L Carbon Dioxide Level 22.6 MEQ/L Anion Gap 9 MEQ/L Estimat Glomerular Filtration Rate 125 ML/MIN Lipase 81 U/L Culture Results Microbiology Date/Time Source Procedure Growth Status 07/02/17 05:49 Blood Peripheral Aerobic Blood Culture Pending Received 07/02/17 05:49 Blood Peripheral Anaerobic Blood Culture Pending Received 07/02/17 05:44 Blood Peripheral Aerobic Blood Culture Pending Received 07/02/17 05:44 Blood Peripheral Anaerobic Blood Culture Pending Received 06/29/17 19:45 Blood Peripheral Aerobic Blood Culture - Preliminary NO GROWTH IN 2 DAYS Resulted 06/29/17 19:45 Blood Peripheral Anaerobic Blood Culture - Preliminary NO GROWTH IN 2 DAYS Resulted 06/29/17 19:30 Blood Peripheral Aerobic Blood Culture - Preliminary NO GROWTH IN 2 DAYS Resulted 06/29/17 19:30 Anaerobic Blood Culture - Preliminary Staph Sp Coagulase Negative Resulted 07/01/17 22:11 Stool Stool Pending Received Administered Medications Medications (Trade) Dose Ordered Sig/Judd Route PRN Reason Start Time Stop Time Status Last Admin Dose Admin Sodium Chloride 1,000 ml @ 42 mls/hr [id number] IV 06/29/17 22:46 06/29/17 23:27 Sodium Chloride (NS Flush) 2 ml BID IV FLUSH 06/30/17 09:00 07/02/17 08:40 Aspirin (Ecotrin Ec) 162 mg DAILY PO 06/30/17 09:00 07/02/17 08:40 Duloxetine HCl (Cymbalta Dr) 30 mg BID PO 06/30/17 09:00 07/02/17 08:39 Lisinopril (Prinivil) 40 mg DAILY PO 06/30/17 15:15 07/02/17 08:39 Clonidine (Catapres) 0.1 mg Q6H PRN PO SBP>160, DBP>90 06/30/17 15:15 07/01/17 21:27 Potassium Chloride (KCl) 30 meq DAILY PO 06/30/17 15:15 07/02/17 08:39 Magnesium Oxide (Mag-Ox) 400 mg Q12HR PO 06/30/17 21:00 07/02/17 08:40 Levothyroxine Sodium (Synthroid) 100 mcg DAILY@0600 PO 07/02/17 06:00 07/02/17 06:21 Losartan Potassium (Cozaar) 100 mg DAILY PO 07/02/17 09:00 07/02/17 08:39 Hydrochlorothiazide (Hydrodiuril) 25 mg DAILY PO 07/02/17 09:00 07/02/17 08:39 Objective Remarks GENERAL: Elderly female lying in bed, anxious, feeling nauseated. SKIN: Warm and dry. HEAD: Normocephalic. EYES: No injection or drainage. NECK: Supple, trachea midline. CARDIOVASCULAR: +S1/S2 RESPIRATORY: diminished at bases. anterior rosales clear. GASTROINTESTINAL: Abdomen soft, non-tender, nondistended. EXTREMITIES: No cyanosis NEUROLOGICAL: awake and alert, normal speech. Assessment/Plan Problem List: (1) Bacteremia ICD Codes: R78.81 - Bacteremia Plan: --one positive BC, likely contaminant --repeat BC on 07/02 pending. (2) Encephalopathy acute ICD Codes: G93.40 - Encephalopathy, unspecified Status: Resolved Plan: --likely medication induced. --was taking morphine, Percocet, temazepam and Flexeril at night. --Since holding the medication, mental status has improved. --CT of the head did not show any acute changes. --will give Oxycodone PRN Assessment 76-year-old female with malignant mesothelioma of the right lung currently on the chemotherapy brought in to the emergency room by her with complaint of mental status change. The patient reportedly has increased lethargy and mental status is a little altered. She had the last dose of Alimta on June 11. h/o Malignant right lung pleural mesothelioma treated with cisplatin and Alimta as well as Avastin and she is currently on maintenance Alimta. Gastroesophageal reflux disease. Fibromyalgia. Hypertension. Hyperlipidemia. Hypothyroidism. Recurrent right pleural effusion. Right breast cancer twice. Anxiety. irritable bowel syndrome. Collagenous colitis. Stroke. Plan 1. will zofran for nausea. continue IVF 2. monitor repeat blood cultures 3. continue supportive care Attending Statement The exam, history, and the medical decision-making described in the above note were completed with the assistance of the mid-level provider. I reviewed and agree with the findings presented. I attest that I had a [id number] encounter with the patient on the same day, and personally performed and documented my assessment and findings in the medical record. Feels better. Showing humor, c/o nausea in AM, state that she's not . Trouble ordering her tray, request automatic tray. Feels deconditioned, have not gotten out of bed. Consider DVT prophylaxis. PT evaluation. Missed chemo today. Reschedule when pt DC home. Replace magnesium slowly- late toxicity from cisplatin. Vicky Hargrove Jul 02, 2017 10:34 Afshan Lao MD Jul 02, 2017 18:57
--- NOTE | 2017-07-02 12:07 | HHI.PR ---
Subjective Remarks Patient reports nausea this morning. No vomiting. No further episodes of diarrhea today. Objective Vitals Vital Signs Date Time Temp Pulse Resp B/P (MAP) Pulse Ox O2 Delivery O2 Flow Rate FiO2 07/02/17 08:16 97.4 96 16 158/94 (115) 97 07/02/17 03:00 94 07/02/17 03:00 97.4 92 24 139/80 (99) 98 07/02/17 00:45 187/112 (137) 07/02/17 00:00 97.8 82 30 184/110 (134) 100 07/01/17 23:00 77 07/01/17 20:00 97.1 84 24 188/107 (134) 97 07/01/17 19:00 96 07/01/17 15:20 17 07/01/17 15:00 81 07/01/17 15:00 79 17 153/87 (109) 97 I/O 07/01/17 07/01/17 07/01/17 07/02/17 07/02/17 07/02/17 07:00 15:00 23:00 07:00 15:00 23:00 Intake Total 480 ml 1857 ml 480 ml Output Total 4 ml 800 ml Balance 476 ml 1857 ml -320 ml Intake Oral 480 ml 720 ml 480 ml IV Total 1137 ml Output Urine Total 800 ml Stool Total 4 ml # Voids 4 2 # Bowel Movements 1 3 Result Diagram: 07/02/17 0549 07/02/17 0549 Objective Remarks GENERAL: This is a well-nourished, well-developed patient, in no apparent distress. CARDIOVASCULAR: Normal rate and regular rhythm without murmurs, gallops, or rubs. RESPIRATORY: Good respiratory efforts. Breath sounds equal and clear to auscultation bilaterally. GASTROINTESTINAL: Abdomen soft, non-tender, non-distended. Normal active bowel sounds MUSCULOSKELETAL: Extremities without cyanosis, or edema. NEURO: Alert & Oriented x4 to person, place, time, situation. Moves all ext x4 PSYCH: Appropriate mood and affect. A/P Problem List: (1) Encephalopathy acute ICD Code: G93.40 - Encephalopathy, unspecified Status: Resolved (2) Mesothelioma ICD Code: C45.9 - Mesothelioma, unspecified Status: Acute (3) Hypothyroidism ICD Code: E03.9 - Hypothyroidism, unspecified Status: Acute Assessment and Plan 76 y/o female with a history of mesothelioma currently undergoing chemo, gerd, fibromyalgia, HLD, HTN, Hypothyroid, tachycardia and neuropathy was brought to the ED with altered mental status. Encephalopathy, acute, likely due to multiple pain medications at home - Resolved Head CT reviewed and shows no acute abnormalities ABG on 3.5 L reviewed and shows PH 7.36 CO2 43 UA negative - neuro stable- now awake and alert -Hold home OxyContin, Flexeril and Ambien. Continue Percocet and monitor. -Cont Neuro checks -Pt eval and treat Nausea: Etiology unclear. Could be related to pain medication. - Antiemetics as needed. Continue to monitor Bacteremia 1 blood culture positive for staph coag neg. Likely contaminant. -Follow repeat blood cultures. Diarrhea: Resolved. C. difficile negative. Hypomagnesium - replaced Mg and monitor Hypothyroidism, chronic, TSH low at 0.28, free T4 slightly high. -continue Synthroid at lower dose of 100 mcg daily. - recheck as OP Mesothelioma, -Oncology following. Continue supportive care. Patient is on maintenance chemotherapy. Chronic respiratory failure- stable on home 02- 3LNC- continue Incentive spirometry hourly 8 am- 8 pm Macrocytic anemia- chronic - H and H stable check iron studies, B12, folate DVT prophylaxis: SCDs Discharge Planning PT to evaluate. Probable discharge tomorrow with home health and PT. Catracho Lewis MD Jul 02, 2017 12:07
[2017-07-02] MEDS: cloNIDine HCL 0.1 MG TAB PO PRN ×2 (13:22→20:05)
[2017-07-02] MEDS ORDERED: MAGNESIUM SULFATE 1 GM PREMIX 100 ML IV ONE (19:00)
[2017-07-02] MEDS ORDERED: ENOXAPARIN SODIUM 40 MG/0.4 ML SYRINGE SQ SCH (20:00)
[2017-07-03] VITALS: PULSE 88
[2017-07-03] MEDS: SODIUM CHLOR 0.9% 1000 ML INJ 1,000 ML IV SCH
[2017-07-03 03:56] VITALS: BP 141/81; PULSE 74; RESP 16; TEMP 98; O2SAT 99
[2017-07-03 04:03] VITALS: PULSE 73
[2017-07-03] MEDS: LEVOTHYROXINE SODIUM 100 MCG TAB PO SCH (06:14)
[2017-07-03 06:56] LABS: HEMATOCRIT 24.4 % (35.0-46.0); MEAN CELL VOLUME 100.6 FL (80.0-100.0); MEAN CORPUSCULAR HEMOGLOBIN 36.1 PG (27.0-34.0); MEAN CORPUSCULAR HGB CONC 35.9 % (32.0-36.0); PLATELET COUNT 284 TH/MM3 (150-450); RED BLOOD COUNT 2.42 MIL/MM3 (4.00-5.30); RED CELL DISTRIBUTION WIDTH 16.1 % (11.6-17.2); WHITE BLOOD COUNT 2.7 TH/MM3 (4.0-11.0)
[2017-07-03 07:28] LABS: POTASSIUM 3.9 MEQ/L (3.5-5.1)
[2017-07-03 07:30] LABS: BICARBONATE 22.5 MEQ/L (21.0-32.0)
[2017-07-03 08:47] VITALS: PULSE 93
[2017-07-03] MEDS: HYDROCHLOROTHIAZIDE 25 MG TAB PO SCH (09:13)
[2017-07-03] MEDS: ASPIRIN EC 81 MG TABEC PO SCH (09:13)
[2017-07-03] MEDS: LOSARTAN 50 MG TAB PO SCH (09:13)
[2017-07-03] MEDS: POTASSIUM CHLORIDE 10 MEQ CONTROLLED RELEASE TAB PO SCH (09:14)
[2017-07-03] MEDS: DULoxetine HCl DR 30 MG CAP PO SCH (09:14)
[2017-07-03] MEDS: MAGNESIUM OXIDE 400 MG TAB PO SCH (09:14)
[2017-07-03] MEDS: LISINOPRIL 20 MG TAB PO SCH (09:15)
[2017-07-03] MEDS: SODIUM CHLORIDE 0.9% FLUSH 10 ML FLUSH IV FLUSH SCH (09:15)
[2017-07-03 09:17] VITALS: BP 156/82; PULSE 98; RESP 22; TEMP 97.5; O2SAT 97
[2017-07-03 10:09] LABS: BASOPHILS 2 % (0-2); EOSINOPHILS 4 % (0-4); MYELOCYTES 1 % (0-0); NEUTROPHIL # MANUAL DIFF 1.3 TH/MM3 (1.8-7.7); PLATELET ESTIMATE SMEAR NORMAL (NORMAL); POLYS (SEG NEUTROPHILS) 47 % (16-70); WBC DIFF SAMPLE 100
[2017-07-03 10:10] LABS: OVALOCYTES 1+ (NORMAL); PLATELET MORPHOLOGY NORMAL (NORMAL); SCAN/DIFF FINAL DIFF MANUAL
--- NOTE | 2017-07-03 12:08 | HHI.DS ---
Discharge Summary Admission Date Jun 29, 2017 at 23:53 Discharge Date: Jul 03, 2017 Admitting Diagnosis altered mental status (1) Encephalopathy acute ICD Code: G93.40 - Encephalopathy, unspecified Status: Resolved (2) Mesothelioma ICD Code: C45.9 - Mesothelioma, unspecified Status: Acute (3) Hypothyroidism ICD Code: E03.9 - Hypothyroidism, unspecified Status: Acute Procedures None Brief History - From Admission HPI form the admitting physician. 76 y/o female with a history of mesothelioma currently undergoing chemo, gerd, fibromyalgia, HLD, HTN, Hypothyroid, tachycardia and neuropathy was brought to the ED with altered mental status. Patient is lethargic and does not know the reason she is here. is not at the bedside for questioning. Per the ED physician the states she is more lethargic than normal. She is currently receiving chemotherapy with Dr. Lao and her last chemo was 3 weeks ago. She denies any chest pain. CBC/BMP: 07/03/17 0447 07/03/17 0447 Significant Findings Laboratory Tests Test 06/30/17 13:25 07/01/17 06:14 07/01/17 11:38 07/01/17 22:11 White Blood Count 3.7 TH/MM3 (4.0-11.0) 3.0 TH/MM3 (4.0-11.0) Red Blood Count 2.41 MIL/MM3 (4.00-5.30) 2.53 MIL/MM3 (4.00-5.30) Hemoglobin 8.8 GM/DL (11.6-15.3) 9.0 GM/DL (11.6-15.3) Hematocrit 24.2 % (35.0-46.0) 25.9 % (35.0-46.0) Mean Corpuscular Volume 100.7 FL (80.0-100.0) 102.6 FL (80.0-100.0) Mean Corpuscular Hemoglobin 36.5 PG (27.0-34.0) 35.5 PG (27.0-34.0) Mean Corpuscular Hemoglobin Concent 36.2 % (32.0-36.0) Mean Platelet Volume 5.8 FL (7.0-11.0) 6.1 FL (7.0-11.0) Neutrophils (%) (Auto) 70.5 % (16.0-70.0) Monocytes (%) (Auto) 15.4 % (0.0-8.0) 14.7 % (0.0-8.0) Lymphocytes # (Auto) 0.4 TH/MM3 (1.0-4.8) 0.4 TH/MM3 (1.0-4.8) Ovalocytes 1+ (NORMAL) Acanthocytes OCC (NORMAL) Total Protein 6.2 GM/DL (6.4-8.2) Albumin 2.6 GM/DL (3.4-5.0) Magnesium Level 1.3 MG/DL (1.5-2.5) 1.4 MG/DL (1.5-2.5) Sodium Level 128 MEQ/L (136-145) 130 MEQ/L (136-145) Potassium Level 3.4 MEQ/L (3.5-5.1) Chloride Level 96 MEQ/L (98-107) 96 MEQ/L (98-107) Iron Level 33 MCG/DL (50-170) Percent Iron Saturation 10.8 % (20-50) Ferritin 713 NG/ML (8-252) Vitamin B12 Level 1943 PG/ML (193-986) Folate GREATER THAN 20.0 NG/ML Free Thyroxine 1.62 NG/DL (0.76-1.46) Test 07/02/17 05:49 07/03/17 04:47 Red Blood Count 2.62 MIL/MM3 (4.00-5.30) 2.42 MIL/MM3 (4.00-5.30) Hemoglobin 9.5 GM/DL (11.6-15.3) 8.8 GM/DL (11.6-15.3) Hematocrit 26.3 % (35.0-46.0) 24.4 % (35.0-46.0) Mean Corpuscular Volume 100.4 FL (80.0-100.0) 100.6 FL (80.0-100.0) Mean Corpuscular Hemoglobin 36.1 PG (27.0-34.0) 36.1 PG (27.0-34.0) Mean Platelet Volume 6.1 FL (7.0-11.0) 6.3 FL (7.0-11.0) Neutrophils (%) (Auto) 78.2 % (16.0-70.0) Lymphocytes (%) (Auto) 8.4 % (9.0-44.0) Monocytes (%) (Auto) 11.6 % (0.0-8.0) Lymphocytes # (Auto) 0.5 TH/MM3 (1.0-4.8) Creatinine 0.48 MG/DL (0.50-1.00) Total Protein 6.3 GM/DL (6.4-8.2) Albumin 2.7 GM/DL (3.4-5.0) Magnesium Level 1.4 MG/DL (1.5-2.5) Sodium Level 129 MEQ/L (136-145) 129 MEQ/L (136-145) Chloride Level 97 MEQ/L (98-107) White Blood Count 2.7 TH/MM3 (4.0-11.0) Monocytes % 19 % (0-8) Neutrophils # (Manual) 1.3 TH/MM3 (1.8-7.7) Myelocytes 1 % (0-0) Ovalocytes 1+ (NORMAL) Estimat Glomerular Filtration Rate 88 ML/MIN (>89) Imaging Last Impressions Head CT [id number]/29/171927 Signed Impressions: Service Date/Time: Thursday, June 29, 2017 20:02 - CONCLUSION: Normal examination for a patient of this age. Amari Murray MD Chest X-Ray 06/29/171927 Signed Impressions: Service Date/Time: Thursday, June 29, 2017 19:30 - CONCLUSION: 1. Improved right-sided airspace disease and pleural effusions since August 2016. Minimal left basilar atelectasis. Amari Murray MD PE at Discharge GENERAL: This is a well-nourished, well-developed patient, in no apparent distress. CARDIOVASCULAR: Normal rate and regular rhythm without murmurs, gallops, or rubs. RESPIRATORY: Good respiratory efforts. Breath sounds equal and clear to auscultation bilaterally. GASTROINTESTINAL: Abdomen soft, non-tender, non-distended. Normal active bowel sounds MUSCULOSKELETAL: Extremities without cyanosis, or edema. NEURO: Alert & Oriented x4 to person, place, time, situation. Moves all ext x4 PSYCH: Appropriate mood and affect. Pt update on day of discharge Patient reports she is feeling well today. No nausea. Eating ok. Hospital Course 76 y/o female with a history of mesothelioma currently undergoing chemo, gerd, fibromyalgia, HLD, HTN, Hypothyroid, tachycardia and neuropathy was brought to the ED with altered mental status. Evaluation and treatment course detailed below: Encephalopathy, acute, likely due to multiple pain medications at home - Resolved Head CT reviewed and shows no acute abnormalities UA negative - neuro stable- now awake and alert -Hold home OxyContin, Flexeril and Ambien. Continue Percocet and monitor. -Patient returned to baseline. She is advised to follow the medications per the med rec and follow up with PCP Bacteremia 1 blood culture positive for staph coag neg. Likely contaminant. -Repeat blood cultures no growth to date. Diarrhea: Resolved. C. difficile negative. Hypothyroidism, chronic, TSH low at 0.28, free T4 slightly high. -continue Synthroid at lower dose of 100 mcg daily. - recheck as OP Mesothelioma, -Oncology followed the patient. Continue supportive care. Patient is on maintenance chemotherapy. Follow up outpatient. Chronic respiratory failure- stable on home 02- 3LNC- continue Incentive spirometry hourly 8 am- 8 pm Pt Condition on Discharge: Good Discharge Disposition: Disch w/ Home Health Serv Discharge Time: > 30 minutes Discharge Instructions DIET: Follow Instructions for: Heart Healthy Diet Activities you can perform: Regular-No Restrictions Follow up Referrals: PCP Follow-up Continued Medications: Aspirin (Aspirin) 81 Mg Tabdr 162 MG PO DAILY, TAB Calcium Carbonate-Cholecalciferol (Calcium 600 with Vitamin D) 600-400 mg-Unit Tab 1 TAB PO DAILY for Calcium Supplement, TAB 0 Refills Cyanocobalamin Odt (B-12 Dots) 500 Mcg Tab 500 MCG SL DAILY for Nutritional Supplement, #1 BOTTLE [address] (Cymbalta DR) 30 Mg Capdr 30 MG PO BID, #30 CAP 0 Refills Ezetimibe (Zetia) 10 Mg Tab 10 MG PO DAILY, #30 TAB 0 Refills Levothyroxine (Synthroid) 112 Mcg Tab 112 MCG PO DAILY for Thyroid, #30 TAB 0 Refills Multiple Vitamins W/ Minerals (Multivitamin Women) 1 Tab Tab 1 TAB PO DAILY for Nutritional Supplement, TAB 0 Refills Olmesartan-Hydrochlorothiazide (Benicar Hct) 40-25 mg Tab 1 TAB PO DAILY for Blood Pressure Management, #30 TAB 0 Refills Omeprazole (Prilosec) 10 Mg Cap 10 MG PO DAILY, #30 CAP 0 Refills Discontinued Medications: Cyclobenzaprine (Flexeril) 10 Mg Tab 10 MG PO HS for Muscle Spasm, #90 TAB 0 Refills Milnacipran (Savella) 50 Mg Tab 50 MG PO BID for Fibromyalgia, #60 TAB 0 Refills Oxycodone ER (Oxycontin) 15 Mg Tab PO Q12HR Zolpidem (Ambien) 10 Mg Tab 10 MG PO HS PRN for INSOMNIA, TAB 0 Refills Catracho Lewis MD Jul 03, 2017 12:08
[2017-07-03] MEDS: cloNIDine HCL 0.1 MG TAB PO PRN (12:29)
[2017-07-03 12:48] VITALS: BP 181/97; PULSE 79; RESP 20; TEMP 98.5; O2SAT 99
--- NOTE | 2017-07-03 12:56 | PD.ONC.PN ---
Subjective Subjective Remarks Afebrile overnight. Feeling improved. No further nausea. Eating lunch. eager to go home. Objective Data Date Time Temp Pulse Resp B/P (MAP) Pulse Ox O2 Delivery O2 Flow Rate FiO2 07/03/17 12:48 98.5 79 20 181/97 (125) 99 07/03/17 09:17 97.5 98 22 156/82 (106) 97 07/03/17 08:47 93 07/03/17 04:03 73 07/03/17 03:56 98.0 74 16 141/81 (101) 99 07/03/17 00:00 88 07/02/17 23:47 97.7 83 16 166/91 (116) 99 07/02/17 20:03 84 07/02/17 19:51 98.0 81 20 183/103 (129) 100 07/02/17 16:20 97.7 77 24 150/90 (110) 94 07/02/17 13:55 89 07/02/17 13:07 97.8 87 20 190/111 (137) 97 07/03/17 07/03/17 07/03/17 07:00 15:00 23:00 Intake Total 1250 ml Output Total 450 ml Balance 800 ml Result Diagram: 07/03/17 0447 07/03/17 0447 Laboratory Results Laboratory Tests Test 07/03/17 04:47 White Blood Count 2.7 TH/MM3 Red Blood Count 2.42 MIL/MM3 Hemoglobin 8.8 GM/DL Hematocrit 24.4 % Mean Corpuscular Volume 100.6 FL Mean Corpuscular Hemoglobin 36.1 PG Mean Corpuscular Hemoglobin Concent 35.9 % Red Cell Distribution Width 16.1 % Platelet Count 284 TH/MM3 Mean Platelet Volume 6.3 FL Differential Total Cells Counted 100 Neutrophils % (Manual) 47 % Lymphocytes % 27 % Monocytes % 19 % Eosinophils % 4 % Basophils % 2 % Neutrophils # (Manual) 1.3 TH/MM3 Myelocytes 1 % Differential Comment FINAL DIFF MANUAL Platelet Estimate NORMAL Platelet Morphology Comment NORMAL Ovalocytes 1+ Blood Urea Nitrogen 10 MG/DL Creatinine 0.65 MG/DL Random Glucose 78 MG/DL Calcium Level 9.3 MG/DL Sodium Level 129 MEQ/L Potassium Level 3.9 MEQ/L Chloride Level 98 MEQ/L Carbon Dioxide Level 22.5 MEQ/L Anion Gap 9 MEQ/L Estimat Glomerular Filtration Rate 88 ML/MIN Culture Results Microbiology Date/Time Source Procedure Growth Status 07/02/17 05:49 Blood Peripheral Aerobic Blood Culture - Preliminary NO GROWTH IN 1 DAY Resulted 07/02/17 05:49 Blood Peripheral Anaerobic Blood Culture - Preliminary NO GROWTH IN 1 DAY Resulted 07/02/17 05:44 Blood Peripheral Aerobic Blood Culture - Preliminary NO GROWTH IN 1 DAY Resulted 07/02/17 05:44 Blood Peripheral Anaerobic Blood Culture - Preliminary NO GROWTH IN 1 DAY Resulted 07/01/17 22:11 Stool Stool - Final NO ENTERIC PATHOGENS DETECTED BY PCR... Complete Administered Medications Medications (Trade) Dose Ordered Sig/Judd Route PRN Reason Start Time Stop Time Status Last Admin Dose Admin Sodium Chloride 1,000 ml @ 42 mls/hr [id number] IV 06/29/17 22:46 07/03/17 00:00 Sodium Chloride (NS Flush) 2 ml BID IV FLUSH 06/30/17 09:00 07/03/17 09:15 Aspirin (Ecotrin Ec) 162 mg DAILY PO 06/30/17 09:00 07/03/17 09:13 Duloxetine HCl (Cymbalta Dr) 30 mg BID PO 06/30/17 09:00 07/03/17 09:14 Lisinopril (Prinivil) 40 mg DAILY PO 06/30/17 15:15 07/03/17 09:15 Clonidine (Catapres) 0.1 mg Q6H PRN PO SBP>160, DBP>90 06/30/17 15:15 07/03/17 12:29 Potassium Chloride (KCl) 30 meq DAILY PO 06/30/17 15:15 07/03/17 09:14 Magnesium Oxide (Mag-Ox) 400 mg Q12HR PO 06/30/17 21:00 07/03/17 09:14 Levothyroxine Sodium (Synthroid) 100 mcg DAILY@0600 PO 07/02/17 06:00 07/03/17 06:14 Losartan Potassium (Cozaar) 100 mg DAILY PO 07/02/17 09:00 07/03/17 09:13 Hydrochlorothiazide (Hydrodiuril) 25 mg DAILY PO 07/02/17 09:00 07/03/17 09:13 Oxycodone HCl (Roxicodone) 10 mg Q6H PRN PO pain1-10 07/02/17 09:30 07/03/17 09:14 Enoxaparin Sodium (Lovenox Inj) 40 mg Q24H SQ 07/02/17 20:00 07/02/17 19:58 Objective Remarks GENERAL: Elderly female sitting up in chair next to bed eating lunch. SKIN: Warm and dry. HEAD: Normocephalic. EYES: No injection or drainage. NECK: Supple, trachea midline. CARDIOVASCULAR: +S1/S2 RESPIRATORY: diminished at bases. anterior rosales clear. GASTROINTESTINAL: Abdomen soft, non-tender, nondistended. EXTREMITIES: No cyanosis NEUROLOGICAL: awake and alert, normal speech. moving all extremities. Assessment/Plan Problem List: (1) Bacteremia ICD Codes: R78.81 - Bacteremia Plan: --one positive BC, likely contaminant --repeat BC on 07/02 shows no growth Assessment 76-year-old female with malignant mesothelioma of the right lung currently on the chemotherapy brought in to the emergency room by her with complaint of mental status change. The patient reportedly has increased lethargy and mental status is a little altered. She had the last dose of Alimta on June 11. h/o Malignant right lung pleural mesothelioma treated with cisplatin and Alimta as well as Avastin and she is currently on maintenance Alimta. Gastroesophageal reflux disease. Fibromyalgia. Hypertension. Hyperlipidemia. Hypothyroidism. Recurrent right pleural effusion. Right breast cancer twice. Anxiety. irritable bowel syndrome. Collagenous colitis. Stroke. Plan 1. ok to d/c 2. follow up with Dr. Lao in clinic within a week 3. advised to stop Ambien and Oxycontin, take Oxycodone for pain. Attending Statement Discussed above. Vicky Hargrove Jul 03, 2017 12:56 Afshan Lao MD Jul 03, 2017 17:55
== END 2017-07-03 14:35 | disposition home health service (06) | DRG 71 ==
LOC: NEPE 19:11 → NEDA 22:47 → OBSVTOIN 23:53 → NEPGCP 23:59 → HCIS 06-30 11:17
PROVIDERS: ADMIT Family Medicine; ATTEND Family Medicine
DX: G93.40 Encephalopathy, unspecified (principal); C45.0 Mesothelioma of pleura; J96.10 Chronic respiratory failure, unspecified whether with hypoxia or hypercapnia; Z99.81 Dependence on supplemental oxygen; E87.1 Hypo-osmolality and hyponatremia; G62.9 Polyneuropathy, unspecified; E83.42 Hypomagnesemia; I10 Essential (primary) hypertension; D53.9 Nutritional anemia, unspecified; K21.9 Gastro-esophageal reflux disease without esophagitis; M79.7 Fibromyalgia; E78.5 Hyperlipidemia, unspecified; E03.9 Hypothyroidism, unspecified; F41.9 Anxiety disorder, unspecified; Z96.651 Presence of right artificial knee joint; E87.6 Hypokalemia; G89.29 Other chronic pain; K58.0 Irritable bowel syndrome with diarrhea; M19.90 Unspecified osteoarthritis, unspecified site; R11.0 Nausea; T50.995A Adverse effect of other drugs, medicaments and biological substances, initial encounter; Z86.73 Personal history of transient ischemic attack (TIA), and cerebral infarction without residual deficits; Z85.3 Personal history of malignant neoplasm of breast
CPT/HCPCS: 36600; 70450; 71010; 80048; 80053; 81001; 82607; 82728; 82746; 82805; 83540; 83550; 83605; 83690; 83735; 84439; 84443; 84484; 85007; 85025; 85027; 85610; 85730; 87040; 87077; 87186; 87205; 87493; 87506; 93005; 94150; 96360; 96361; J0360; J0696; J1650; J2405; J3475; J3480; J7030; P9612

== ENCOUNTER 2017-07-13 20:28 | Inpatient (IN) | payer MEDICARE ==
[~2017-07-13] VITALS: Ht 172.7 cm; Wt 60.4 kg
[~2017-07-13 20:28] MED LIST changes: -AMBI10TA PO; -CYCL1TAB29 PO; +EZET10 PO; -MEDR4PAK PO; -MILN50 PO; -OXYC15TA55 PO; -ZETI10TA5 PO
[2017-07-13 20:33] VITALS: BP 204/99; PULSE 102; RESP 22; TEMP 98.2; O2SAT 98
[2017-07-13] MEDS ORDERED: ASPI-516 CHEW (20:42)
[2017-07-13] MEDS ORDERED: NO ITAB (20:42)
[2017-07-13] MEDS ORDERED: MORPHINE SULFATE 2 MG/ML INJ IV PUSH ONE ×2 (21:00)
[2017-07-13] MEDS ORDERED: ONDANSETRON HCL 4 MG/2 ML VIAL IV PUSH ONE (21:00)
--- NOTE | 2017-07-13 21:02 | PD ---
HPI Chief Complaint: Hypertension Time Seen by Provider: 20:32 Travel History International Travel<30 days: No Contact w/Intl Traveler<30days: No Traveled to known affect area: No History of Present Illness HPI Patient is a 76-year-old female on chemotherapy comes from her home where she lives with her . Her blood pressure was 200 systolic and he who is a doctor decided she should come to the ER area patient says her pressure gets high at night she takes Benicar but it did not help today she says she has neck pain which often makes her pressure go up. Patient is in the ER she is slightly confused .. Able to give me a history . She Breathes heavy in between each sentence ..patient says she is nauseous and thinks the pain and nausea causing her pressure to elevate. I will treat her pain and nausea and reevaluate pressure and reevaluate . Her arrives he is a orthopedic surgeon he tells me that she's had an episode similar to this altered mental status. They thought it was an over dose of narcotics she takes her pain and her chemotherapy she was admitted apparently Benicar was not available to give her Catapres upstairs and she developed hypertension as well. Y PFSH Past Medical History Arthritis: Yes Autoimmune Disease: No Blood Disorders: No Anxiety: Yes Depression: Yes Cancer: Yes (R BREAST (2)) Cardiovascular Problems: Yes Chemotherapy: Yes Cerebrovascular Accident: Yes Diabetes: No Diminished Hearing: No Endocrine: Yes Fibromyalgia: Yes Gastrointestinal Disorders: Yes (COLLAGENOUS COLITIS) GERD: Yes Genitourinary: No Headaches: Yes Hepatitis: No Hiatal Hernia: No Hypertension: Yes Immune Disorder: No Musculoskeletal: Yes Neurologic: Yes (HEADACHES, CVA, PERIPHERAL NEUROPATHY ) Psychiatric: Yes (DEPRESSION) Reproductive: No Respiratory: Yes ( ABOVE, ) Radiation Therapy: Yes Thyroid Disease: Yes (HYPOTHYROIDISM) ?: Not Past Surgical History Abdominal Surgery: Yes (APPENDECTOMY) Appendectomy: Yes Body Medical Devices: CERVICAL & LUMBAR HARDWARE Gynecologic Surgery: Yes (HYSTERECTOMY,) Hysterectomy: Yes Joint Replacement: Yes (RIGHT KNEE) Neurologic Surgery: Yes (CERVICAL & LUMBAR FUSIONS) Oral Surgery: Yes (TONSILLECTOMY) Pacemaker: No Thoracic Surgery: Yes (RIGHT MASTECTOMY, RIGHT LUMPECTOMY RIGHT THORA JUL 2015) Tonsillectomy: Yes Other Surgery: Yes Social History Alcohol Use: No Tobacco Use: No Substance Use: No Allergies-Medications (Allergen,Severity, Reaction): Coded Allergies: adhesive (Unverified Allergy, Severe, REDNESS,RASH, 06/29/17) latex (Unverified Allergy, Intermediate, RED RASH, 06/29/17) Sulfa (Sulfonamide Antibiotics) (Unverified Allergy, Mild, HIVES, 06/29/17 ) acetaminophen (Unverified Allergy, Mild, ITCHING, 06/29/17) hydrocodone (Unverified Allergy, Mild, ITCHING, 06/29/17) Reported Meds & Prescriptions Reported Meds & Active Scripts Active Reported Multiple Vitamin (Multivitamin with Minerals) 1 Each Tablet Aspirin 81 Mg Chew 81 Mg CHEW DAILY Prilosec (Omeprazole) 10 Mg Cap 10 Mg PO DAILY Synthroid (Levothyroxine Sodium) 112 Mcg Tab 112 Mcg PO DAILY Zetia (Ezetimibe) 10 Mg Tab 10 Mg PO DAILY Cymbalta DR (Duloxetine HCl) 30 Mg Capdr 30 Mg PO BID B-12 Dots (Cyanocobalamin) 500 Mcg Tab 500 Mcg SL DAILY Calcium 600 with Vitamin D (Calcium Carbonate-Cholecalciferol) 600-400 mg-Unit Tab 1 Tab PO DAILY Benicar Hct (Olmesartan-Hydrochlorothiazide) 40-25 mg Tab 1 Tab PO DAILY Review of Systems Except as stated in HPI: all other systems reviewed are Neg (patient reports having neck pain nausea and knows her pressure is high other complaints at one point she asked me to lower her head during my review of systems encouraged) Physical Exam Narrative GENERAL: Pt appears to be slow of mentation answering questions halted and seems very uncomfortable SKIN: Warm and dry.pale HEAD: Atraumatic. Normocephalic. EYES: Pupils equal and round. No scleral icterus. No injection or drainage. ENT: No nasal bleeding or discharge. Mucous membranes pink and moist. NECK: Trachea midline. No JVD. CARDIOVASCULAR: Regular rate and rhythm. RESPIRATORY: No accessory muscle use. no Resp distress normal RR GASTROINTESTINAL: Abdomen soft, non-tender, nondistended. Hepatic and splenic margins not palpable. Thin MUSCULOSKELETAL: Extremities without clubbing, cyanosis, or edema. No obvious deformities. NEUROLOGICAL: Awake and alert. No obvious cranial nerve deficits. Motor grossly within normal limits. Five out of 5 muscle strength in the arms and legs. Slow speech. PSYCHIATRIC: guarded affect; insight and judgment normal. Data Data Last Documented VS Vital Signs Date Time Temp Pulse Resp B/P (MAP) Pulse Ox O2 Delivery O2 Flow Rate FiO2 07/13/17 23:07 87 18 151/75 (100) 100 Nasal Cannula 2.00 07/13/17 20:33 98.2 Orders Orders Ondansetron Inj (Zofran Inj) (07/13/17 21:00) Morphine Inj (Morphine Inj) (07/13/17 21:00) Morphine Inj (Morphine Inj) (07/13/17 21:00) Pantoprazole Inj (Protonix Inj) (07/13/17 21:15) Urinalysis - C+S If Indicated (07/13/17 21:17) Complete Blood Count With Diff (07/13/17:17) Comprehensive Metabolic Panel (07/13/17 21:17) Lipase (07/13/17 21:17) Lorazepam Inj (Ativan Inj) (07/13/17 21:30) Chest, Single Ap (07/13/17 ) Electrocardiogram (07/13/17 ) Labetalol Inj (Trandate Inj) (07/13/17 21:45) Urine Culture (07/13/17 21:10) Labetalol Inj (Trandate Inj) (07/13/17 22:45) Labetalol (Trandate) (07/13/17 22:45) Admit Order (Ed Use Only) (07/13/17 23:52) Labs Laboratory Tests Test 07/13/17 21:10 07/13/17 21:30 Urine Color LIGHT-YELLOW Urine Turbidity HAZY Urine pH 7.5 Urine Specific [place] 1.014 Urine Protein NEG mg/dL Urine Glucose (UA) NEG mg/dL Urine Ketones NEG mg/dL Urine Occult Blood NEG Urine Nitrite NEG Urine Bilirubin NEG Urine Urobilinogen LESS THAN 2.0 MG/DL Urine Leukocyte Esterase TRACE Urine RBC 2 /hpf Urine WBC 10 /hpf Urine Squamous Epithelial Cells 1 /hpf Urine Transitional Epithelial Cells 2 /hpf Urine Renal Epithelial Cells <1 /hpf Urine Amorphous Sediment OCC Urine Bacteria MOD /hpf Urine Mucus FEW /lpf Microscopic Urinalysis Comment CULTURE INDICATED White Blood Count 5.7 TH/MM3 Red Blood Count 3.08 MIL/MM3 Hemoglobin 10.8 GM/DL Hematocrit 31.2 % Mean Corpuscular Volume 101.1 FL Mean Corpuscular Hemoglobin 34.9 PG Mean Corpuscular Hemoglobin Concent 34.5 % Red Cell Distribution Width 14.9 % Platelet Count 288 TH/MM3 Mean Platelet Volume 6.3 FL Neutrophils (%) (Auto) 85.2 % Lymphocytes (%) (Auto) 9.5 % Monocytes (%) (Auto) 4.3 % Eosinophils (%) (Auto) 0.4 % Basophils (%) (Auto) 0.6 % Neutrophils # (Auto) 4.9 TH/MM3 Lymphocytes # (Auto) 0.5 TH/MM3 Monocytes # (Auto) 0.2 TH/MM3 Eosinophils # (Auto) 0.0 TH/MM3 Basophils # (Auto) 0.0 TH/MM3 CBC Comment DIFF FINAL Differential Comment Blood Urea Nitrogen 15 MG/DL Creatinine 0.69 MG/DL Random Glucose 90 MG/DL Total Protein 7.1 GM/DL Albumin 3.3 GM/DL Calcium Level 10.0 MG/DL Alkaline Phosphatase 76 U/L Aspartate Amino Transf (AST/SGOT) 28 U/L Alanine Aminotransferase (ALT/SGPT) 19 U/L Total Bilirubin 0.9 MG/DL Sodium Level 126 MEQ/L Potassium Level 3.8 MEQ/L Chloride Level 91 MEQ/L Carbon Dioxide Level 26.3 MEQ/L Anion Gap 9 MEQ/L Estimat Glomerular Filtration Rate 82 ML/MIN Lipase 64 U/L MDM Medical Decision Making Medical Screen Exam Complete: Yes Emergency Medical Condition: Yes Differential Diagnosis HTN of chemo reaction vs emotional stress , vs fluid overload , vs vasoconstrictive or cardiogenic HTN Narrative Course I talk with the patient and ask her if she missed her benicar , She says No. She is shaking and halted in her remarks < she says her pain in neck often causes this feeling and leads to HTN at night . I given her Morphine 2 mg and recheck her BP anf the Ativan again without releif BP continues 207/100, I given Labetolol 20mg with moderate relief and then repeat 20 mg Labetolol and load PO 100 mg PO , then BP is improved to 175 /90. I admit for further investigation for sudden HTN urgency. Her is bedside he is a [employer]ician and a helpful historian of his wifes history and course. Jacob Mclean MD Jul 13, 2017 21:02
[2017-07-13] MEDS ORDERED: PANTOPRAZOLE SODIUM 40 MG VIAL IV PUSH ONE (21:15)
[2017-07-13] MEDS ORDERED: LORazepam 2 MG/ML VIAL IV ONE (21:30)
[2017-07-13 21:32] VITALS: BP 202/108; PULSE 101; RESP 16; O2SAT 100
[2017-07-13] MEDS ORDERED: LABETALOL HCL 100 MG/20 ML VIAL IV PUSH ONE ×2 (21:45→22:45)
[2017-07-13 21:48] VITALS: BP 184/84; PULSE 92; RESP 16; O2SAT 100
[2017-07-13 22:02] LABS: AUTOMATED NEUTROPHIL # 4.9 TH/MM3 (1.8-7.7); BASOPHIL % 0.6 % (0.0-2.0); EOSINOPHIL % 0.4 % (0.0-4.0); HEMATOCRIT 31.2 % (35.0-46.0); HEMO FLAGS DIFF FINAL; LYMPH % 9.5 % (9.0-44.0); LYMPHOCYTE # 0.5 TH/MM3 (1.0-4.8); MEAN CELL VOLUME 101.1 FL (80.0-100.0); MEAN CORPUSCULAR HEMOGLOBIN 34.9 PG (27.0-34.0); MEAN CORPUSCULAR HGB CONC 34.5 % (32.0-36.0); MONO % 4.3 % (0.0-8.0); NEUT % 85.2 % (16.0-70.0); PLATELET COUNT 288 TH/MM3 (150-450); RED BLOOD COUNT 3.08 MIL/MM3 (4.00-5.30); RED CELL DISTRIBUTION WIDTH 14.9 % (11.6-17.2); WHITE BLOOD COUNT 5.7 TH/MM3 (4.0-11.0)
[2017-07-13 22:06] LABS: BACTERIA, URINE MOD /hpf; BLOOD, URINE NEG (NEG); COMMENT (UR) CULTURE INDICATED; CULTURE IF INDICATED CULTURE INDICATED; GLUCOSE,URINE NEG (NEG); KETONE, URINE NEG (NEG); MUCUS URINE FEW /lpf (OCC); NITRITE,URINE NEG (NEG); PH, URINE 7.5 (5.0-8.5); RENAL EPITHELIAL CELLS <1 /hpf; SQUAMOUS EPITHELIAL CELL URINE 1 /hpf (0-5); TRANSITIONAL EPI CELLS, URINE 2 /hpf; URINE COLOR LIGHT-YELLOW (YELLW/STRAW)
[2017-07-13 22:07] LABS: ANION GAP 9 MEQ/L (5-15); AST (GOT) 28 U/L (15-37); BICARBONATE 26.3 MEQ/L (21.0-32.0); BLOOD UREA NITROGEN 15 MG/DL (7-18); CHLORIDE 91 MEQ/L (98-107); GLOMERULAR FILTRATION RATE 82 ML/MIN (>89); POTASSIUM 3.8 MEQ/L (3.5-5.1); SODIUM (NA) 126 MEQ/L (136-145)
[2017-07-13 22:11] LABS: ALKALINE PHOSPHATASE 76 U/L (45-117); ALT (GPT) 19 U/L (10-53); TOTAL BILIRUBIN ADULT 0.9 MG/DL (0.2-1.0)
--- NOTE | 2017-07-13 22:28 | RADRPT ---
EXAM DATE/TIME: 07/13/2017 21:54 [facility] COMPARISON: CHEST SINGLE AP, August 24, 2016, 16:14. CHEST SINGLE AP, June 29, 2017, 19:30. INDICATIONS : Shortness of breath. MEDICAL HISTORY : Mesothelioma. SURGICAL HISTORY : Infusaport. ENCOUNTER: Initial ACUITY: 1 day PAIN SCORE: Non-responsive. LOCATION: chest FINDINGS: The chest is stable from the prior exam. Again seen is blunting of the right costophrenic angle eithe r related to loculated fluid or pleural thickening. This tracks along the lateral hemithorax. Left shruthi ng is clear. No effusion on the left. Heart is at the upper limits of normal in terms of size. Left s ubclavian Port-A-Cath. Cervical spinal fusion plate. CONCLUSION: Stable loculated fluid versus pleural thickening involving the right hemithorax. Quan Tierney Jr., MD on July 13, 2017 at 22:26 Board Certified Radiologist. This report was verified electronically.
[2017-07-13] MEDS ORDERED: LABETALOL HCL 100 MG TAB PO ONE (22:45)
[2017-07-13 23:07] VITALS: BP 151/75; PULSE 87; RESP 18; O2SAT 100
--- NOTE | 2017-07-13 23:53 | HHI.HP ---
[facility] Primary Care Physician Cole Henao MD Admission Diagnosis Diagnoses: (1) Uncontrolled hypertension Diagnosis: Principal (2) Dehydration Diagnosis: Principal (3) UTI (urinary tract infection) Diagnosis: Principal (4) Mesothelioma Diagnosis: Principal Travel History International Travel<30 Days: No Contact w/Intl Traveler <30 Da: No Traveled to Known Affected Are: No History of Present Illness This is a 76-year-old female with a PMH of Anxiety, Depression, Breast CA, Mesothelioma on Chemotherapy and h/o CVA who was brought to the ER secondary to elevated BP and confusion. Per report, is physician, noted BP at home of >200 systolic, took home medications w/ little improvement. On arrival to ER noted to be slightly confused, mainly complains of nausea and generalized pain. BP BP 204/99, HR 102, O2 sat 98% on RA, Afebrile. S/p Labetalol 100mg PO , Labetalol 20mg IV x2 and Ativan 0.5mg IV in ER, repeat BP 165/85, HR 87. CBC at baseline. Chemistry unremarkable except for GFR 82. Na 126. UA with moderate bacteria and LE. CXR was stable loculated fluid versus pleural thickening. Review of Systems Except as stated in HPI: all other systems reviewed are Neg ROS: 14 point review of systems otherwise negative. Past Family Social History Past Medical History PMH: Anxiety, Depression, Breast CA, Mesothelioma on Chemotherapy and h/o CVA Past Surgical History PAST SURGICAL HISTORY: Appendectomy, Hysterectomy, Cervical and Lumbar Fusion, Tonsillectomy, Right Mastectomy, Right Knee Replacement Allergies: Coded Allergies: adhesive (Unverified Allergy, Severe, REDNESS,RASH, 06/29/17) latex (Unverified Allergy, Intermediate, RED RASH, 06/29/17) Sulfa (Sulfonamide Antibiotics) (Unverified Allergy, Mild, HIVES, 06/29/17 ) acetaminophen (Unverified Allergy, Mild, ITCHING, 06/29/17) hydrocodone (Unverified Allergy, Mild, ITCHING, 06/29/17) Family History PAST FAMILY HISTORY: Reviewed. No h/o DM or CAD Social History PAST SOCIAL HISTORY: Negative for alcohol, tobacco or drugs. Physical Exam Vital Signs Vital Signs Date Time Temp Pulse Resp B/P (MAP) Pulse Ox O2 Delivery O2 Flow Rate FiO2 07/13/17 23:07 87 18 151/75 (100) 100 Nasal Cannula 2.00 07/13/17 21:49 18 07/13/17 21:48 92 16 184/84 (117) 100 Nasal Cannula 2.00 07/13/17 21:32 101 16 202/108 (139) 100 Nasal Cannula 2.00 07/13/17 20:33 98.2 102 22 204/99 (134) 98 Physical Exam PE: GENERAL: Elderly white female in no acute distress, appears weak. HEENT: PERRLA, EOMI. No scleral icterus or conjunctival pallor. No lid lag or facial droop. CARDIOVASCULAR: Regular rate and rhythm. No obvious murmurs to auscultation. No chest tenderness to palpation. RESPIRATORY: No obvious rhonchi or wheezing. Clear to auscultation. Breath sounds equal bilaterally. GASTROINTESTINAL: Abdomen soft, non-tender, nondistended. BS normal. MUSCULOSKELETAL: Extremities without clubbing, cyanosis, or edema. No obvious deformities. NEUROLOGICAL: Awake, alert and oriented x4. No focal neurologic deficits. Moving both upper and lower extremities spontaneously. Laboratory Laboratory Tests Test 07/13/17 21:10 07/13/17 21:30 Urine Color LIGHT-YELLOW Urine Turbidity HAZY Urine pH 7.5 Urine Specific [place] 1.014 Urine Protein NEG Urine Glucose (UA) NEG Urine Ketones NEG Urine Occult Blood NEG Urine Nitrite NEG Urine Bilirubin NEG Urine Urobilinogen LESS THAN 2.0 Urine Leukocyte Esterase TRACE Urine RBC 2 Urine WBC 10 Urine Squamous Epithelial Cells 1 Urine Transitional Epithelial Cells 2 Urine Renal Epithelial Cells <1 Urine Amorphous Sediment OCC Urine Bacteria MOD Urine Mucus FEW Microscopic Urinalysis Comment CULTURE INDICATED White Blood Count 5.7 Red Blood Count 3.08 Hemoglobin 10.8 Hematocrit 31.2 Mean Corpuscular Volume 101.1 Mean Corpuscular Hemoglobin 34.9 Mean Corpuscular Hemoglobin Concent 34.5 Red Cell Distribution Width 14.9 Platelet Count 288 Mean Platelet Volume 6.3 Neutrophils (%) (Auto) 85.2 Lymphocytes (%) (Auto) 9.5 Monocytes (%) (Auto) 4.3 Eosinophils (%) (Auto) 0.4 Basophils (%) (Auto) 0.6 Neutrophils # (Auto) 4.9 Lymphocytes # (Auto) 0.5 Monocytes # (Auto) 0.2 Eosinophils # (Auto) 0.0 Basophils # (Auto) 0.0 CBC Comment DIFF FINAL Differential Comment Blood Urea Nitrogen 15 Creatinine 0.69 Random Glucose 90 Total Protein 7.1 Albumin 3.3 Calcium Level 10.0 Alkaline Phosphatase 76 Aspartate Amino Transf (AST/SGOT) 28 Alanine Aminotransferase (ALT/SGPT) 19 Total Bilirubin 0.9 Sodium Level 126 Potassium Level 3.8 Chloride Level 91 Carbon Dioxide Level 26.3 Anion Gap 9 Estimat Glomerular Filtration Rate 82 Lipase 64 Date/Time Source Procedure Growth Status 07/13/17 21:10 Urine Clean Catch Urine Culture Pending Received Result Diagram: 07/13/17212907/13/172129 Caprini VTE Risk Assessment Caprini VTE Risk Assessment: Mod/High Risk (score >= 2) Caprini Risk Assessment Model Point Value = 1 Point Value = 2 Point Value = 3 Point Value = 5 Age 41-60 Minor surgery BMI > 25 kg/m2 Swollen legs Varicose veins or History of unexplained or recurrent spontaneous Oral contraceptives or hormone replacement Sepsis (< 1 month) Serious lung disease, including pneumonia (< 1 month) Abnormal pulmonary function Acute myocardial infarction Congestive heart failure (< 1 month) History of inflammatory bowel disease Medical patient at bed rest Age 61-74 Arthroscopic surgery Major open surgery (> 45 min) Laparoscopic surgery (> 45 min) Malignancy Confined to bed (> 72 hours) Immobilizing plaster cast Central venous access Age >= 75 History of VTE Family history of VTE Factor V Leiden Prothrombin [id number] Lupus anticoagulant Anticardiolipin antibodies Elevated serum homocysteine Heparin-induced thrombocytopenia Other congenital or acquired thrombophilia Stroke (< 1 month) Elective arthroplasty Hip, pelvis, or leg fracture Acute spinal cord injury (< 1 month) Prophylaxis Regimen Total Risk Factor Score Risk Level Prophylaxis Regimen 0-1 Low Early ambulation 2 Moderate Order ONE of the following: *Sequential Compression Device (SCD) *Heparin 5000 units SQ BID 3-4 Higher Order ONE of the following medications: *Heparin 5000 units SQ TID *Enoxaparin/Lovenox 40 mg SQ daily (WT < 150 kg, CrCl > 30 mL/min) *Enoxaparin/Lovenox 30 mg SQ daily (WT < 150 kg, CrCl > 10-29 mL/min) *Enoxaparin/Lovenox 30 mg SQ BID (WT < 150 kg, CrCl > 30 mL/min) AND/OR *Sequential Compression Device (SCD) 5 or more Highest Order ONE of the following medications: *Heparin 5000 units SQ TID (Preferred with Epidurals) *Enoxaparin/Lovenox 40 mg SQ daily (WT < 150 kg, CrCl > 30 mL/min) *Enoxaparin/Lovenox 30 mg SQ daily (WT < 150 kg, CrCl > 10-29 mL/min) *Enoxaparin/Lovenox 30 mg SQ BID (WT < 150 kg, CrCl > 30 mL/min) AND *Sequential Compression Device (SCD) Assessment and Plan Problem List: (1) Uncontrolled hypertension ICD Code: I10 - Essential (primary) hypertension (2) UTI (urinary tract infection) ICD Code: N39.0 - Urinary tract infection, site not specified (3) Dehydration ICD Code: E86.0 - Dehydration (4) Mesothelioma ICD Code: C45.9 - Mesothelioma, unspecified Status: Acute Assessment and Plan A/P: 1. Uncontrolled HTN: BP on arrival >200, on Benicar at home w/ little improvement, s/p Labetalol 100mg PO, Labetalol 20mg IV x2 and Ativan 0.5mg IV in ER, repeat BP 150's systolic. Resume home medications, add Metoprolol, monitor BP closely. Pain control. 2. Dehydration: GFR 82, U/a w/ UTI, IVF for hydration, repeat labs in am. 3. UTI: U/a w/ bacteriuria, LE, start IV Rocephin. 4. Mesothelioma: currently on Chemo, follows w/ Dr. Lao as outpatient. 5. DVT Prophylaxis: Heparin sq 6. Social work for d/c planning as needed. 7. Case discussed w/ ER physician at length. Physician Certification 2 Midnight Certification Type: Admission for Inpatient Services Order for Inpatient Services The services are ordered in accordance with Medicare regulations or non- Medicare payer requirements, as applicable. In the case of services not specified as inpatient-only, they are appropriately provided as inpatient services in accordance with the 2-midnight benchmark. Estimated LOS (days): 2 days is the estimated time the patient will need to remain in the hospital, assuming treatment plan goals are met and no additional complications. Post-Hospital Plan: Not yet determined Michelle Rolle MD Jul 13, 2017 23:53
[2017-07-14] VITALS (10 sets, daily range): BP systolic 129–166; BP diastolic 60–90; PULSE 72–88; RESP 18; TEMP 96.1–97.9; O2SAT 98–100
[2017-07-14] MEDS ORDERED: LACTULOSE SYRUP 20 GM/30 ML CUP PO PRN (00:15)
[2017-07-14] MEDS ORDERED: METOPROLOL TARTRATE 50 MG TAB PO ONE (00:15)
[2017-07-14] MEDS ORDERED: MAGNESIUM HYDROXIDE SUSP 30 ML CUP PO PRN (00:15)
[2017-07-14] MEDS ORDERED: SENNOSIDES 8.6 MG TAB PO PRN (00:15)
[2017-07-14] MEDS ORDERED: SODIUM CHLORIDE 0.9% FLUSH 10 ML FLUSH IV FLUSH PRN (00:15)
[2017-07-14] MEDS ORDERED: ONDANSETRON HCL 4 MG/2 ML VIAL IVP PRN (00:15)
[2017-07-14] MEDS ORDERED: BISACODYL 10 MG SUPP RECTAL PRN (00:15)
[2017-07-14] MEDS: cefTRIAXone INJ 1,000 MG in SODIUM CHLORIDE 0.9% INJ 100 ML IV SCH (02:00)
[2017-07-14] MEDS: LEVOTHYROXINE SODIUM 112 MCG TAB PO SCH (06:12)
[2017-07-14] MEDS: MORPHINE SULFATE 4 MG/ML INJ IV PUSH PRN ×2 (06:13→18:57)
[2017-07-14 07:19] LABS: ANION GAP 10 MEQ/L (5-15); AST (GOT) 27 U/L (15-37); BICARBONATE 25.3 MEQ/L (21.0-32.0); BLOOD UREA NITROGEN 15 MG/DL (7-18); CHLORIDE 94 MEQ/L (98-107); GLOMERULAR FILTRATION RATE 81 ML/MIN (>89); POTASSIUM 3.8 MEQ/L (3.5-5.1); SODIUM (NA) 129 MEQ/L (136-145)
[2017-07-14 07:22] LABS: ALKALINE PHOSPHATASE 67 U/L (45-117); ALT (GPT) 16 U/L (10-53); TOTAL BILIRUBIN ADULT 0.8 MG/DL (0.2-1.0)
[2017-07-14 07:30] LABS: AUTOMATED NEUTROPHIL # 2.9 TH/MM3 (1.8-7.7); BASOPHIL % 0.9 % (0.0-2.0); EOSINOPHIL # 0.1 TH/MM3 (0-0.4); EOSINOPHIL % 1.4 % (0.0-4.0); HEMATOCRIT 25.3 % (35.0-46.0); HEMO FLAGS DIFF FINAL; LYMPH % 13.9 % (9.0-44.0); LYMPHOCYTE # 0.5 TH/MM3 (1.0-4.8); MEAN CORPUSCULAR HEMOGLOBIN 35.2 PG (27.0-34.0); MEAN CORPUSCULAR HGB CONC 35.2 % (32.0-36.0); MONO % 4.5 % (0.0-8.0); NEUT % 79.3 % (16.0-70.0); PLATELET COUNT 225 TH/MM3 (150-450); RED BLOOD COUNT 2.53 MIL/MM3 (4.00-5.30); RED CELL DISTRIBUTION WIDTH 14.4 % (11.6-17.2); WHITE BLOOD COUNT 3.7 TH/MM3 (4.0-11.0)
[2017-07-14] MEDS ORDERED: NON-FORMULARY DRUG (Olmesartan-Hydrochlorothiazide (Benicar Hct) 1 TAB) PO SCH (09:00)
--- NOTE | 2017-07-14 09:58 | HHI.PR ---
Subjective Remarks Follow-up hypertension, dehydration, UTI. Patient denies chest pain or dyspnea. Has not had a bowel movement in 2 days, which she states is normal for her since starting chemotherapy. Objective Vitals Vital Signs Date Time Temp Pulse Resp B/P (MAP) Pulse Ox O2 Delivery O2 Flow Rate FiO2 07/14/17 04:26 81 07/14/17 04:00 96.8 80 18 135/68 (90) 98 07/14/17 01:43 97.9 88 18 129/60 (83) 100 07/14/17 00:51 07/14/17 00:39 72 18 143/71 (95) 100 Nasal Cannula 2.00 07/14/17 00:02 87 18 165/85 (111) 99 Nasal Cannula 2.00 07/13/17 23:07 87 18 151/75 (100) 100 Nasal Cannula 2.00 07/13/17 21:49 18 07/13/17 21:48 92 16 184/84 (117) 100 Nasal Cannula 2.00 07/13/17 21:32 101 16 202/108 (139) 100 Nasal Cannula 2.00 07/13/17 20:33 98.2 102 22 204/99 (134) 98 Result Diagram: 07/14/17 0600 07/14/17 0600 Imaging Last Impressions Chest X-Ray 07/13/17 0000 Signed Impressions: Service Date/Time: Thursday, July 13, 2017 21:54 - CONCLUSION: Stable loculated fluid versus pleural thickening involving the right hemithorax. Quan Tierney Jr., MD Objective Remarks General: Elderly female in no acute distress. Heart: Regular rate and rhythm. No murmur. Lungs: Decreased breath sounds on the right. Breathing is nonlabored. Abdomen: Soft, nontender, nondistended. Extremities: No lower extremity edema. Psych: Alert and oriented. Procedures None Urinary Catheter: No Vascular Central Line Catheter: No A/P Problem List: (1) Uncontrolled hypertension ICD Code: I10 - Essential (primary) hypertension (2) UTI (urinary tract infection) ICD Code: N39.0 - Urinary tract infection, site not specified (3) Dehydration ICD Code: E86.0 - Dehydration (4) Mesothelioma ICD Code: C45.9 - Mesothelioma, unspecified Status: Acute Assessment and Plan 1. Hypertension: Blood pressure control is much improved this morning. Continue met Lawoprolol. 2. Dehydration: Improving. Continue IV fluids. 3. UTI: Urine culture is pending. Continue antibiotics. 4. Mesothelioma: Follows with Dr. Lao chemotherapy. 5. DVT prophylaxis: Subcutaneous heparin. Primitivo Hwang MD Jul 14, 2017 09:58
[2017-07-14] MEDS: DOCUSATE SODIUM 50 MG/SENNA 8.6 MG TAB PO SCH ×2 (10:31→21:57)
[2017-07-14] MEDS: PANTOPRAZOLE SOD 20 MG DELAYED RELEASE TAB PO SCH (10:31)
[2017-07-14] MEDS: ASPIRIN 81 MG CHEW TAB CHEW SCH (10:31)
[2017-07-14] MEDS: METOPROLOL TARTRATE 25 MG TAB PO SCH ×2 (10:31→21:57)
[2017-07-14] MEDS: DULoxetine HCl DR 30 MG CAP PO SCH ×2 (10:31→21:57)
[2017-07-14] MEDS: LOSARTAN 50 MG TAB PO SCH (10:31)
[2017-07-14] MEDS: HYDROCHLOROTHIAZIDE 25 MG TAB PO SCH (10:32)
[2017-07-14] MEDS: EZETIMIBE 10 MG TAB PO SCH (10:32)
[2017-07-14] MEDS: SODIUM CHLORIDE 0.9% FLUSH 10 ML FLUSH IV FLUSH SCH ×2 (10:34→21:57)
--- NOTE | 2017-07-14 12:39 | EKG ---
Date Performed: 07/13/2017 Time Performed: 22:02:30 PTAGE: 76 years EKG: Sinus rhythm RIGHT BUNDLE BRANCH BLOCK ABNORMAL ECG Since PREVIOUS TRACING , no significant change noted PREVIOUS TRACIN06/29/2017 19.23 DOCTOR: Alonso Pineda Interpretating Date/Time 07/14/2017 12:37:34
[2017-07-14] MEDS ORDERED: AMBI5TAB PO (22:03)
[2017-07-14] MEDS: ZOLPIDEM TARTRATE 5 MG TAB PO PRN (22:40)
[2017-07-15] VITALS (7 sets, daily range): BP systolic 131–188; BP diastolic 75–91; PULSE 68–85; RESP 16–20; TEMP 96.5–98.2; O2SAT 95–99
[2017-07-15] MEDS: cefTRIAXone INJ 1,000 MG in SODIUM CHLORIDE 0.9% INJ 100 ML IV SCH (00:20)
[2017-07-15] MEDS ORDERED: cloNIDine HCL 0.1 MG TAB PO ONE (01:00)
--- NOTE | 2017-07-15 05:16 | MB ---
cc: CASSIE GUNTER DATE OF CONSULTATION: 07/15/2017 DATE OF : 1940. REASON FOR CONSULTATION Patient with a history of mesothelioma being treated with chemotherapy. She presents to the emergency department with hypertensive urgency. She had a headache at home and her checked her blood pressure and systolic blood pressure greater than 200 was noted. HISTORY OF PRESENT ILLNESS This is a 76-year-old female who has a history of mesothelioma which was diagnosed approximately one year ago. She has undergone multiple lines of treatment. She is currently receiving chemotherapy. She has a history of breast cancer, history of CVA. She was brought to the emergency department with elevated blood pressure and was found to have a BP systolic blood pressure of greater than 200 at home. In the emergency department her blood pressure was 165/85, heart rate was 87. She had a chest x-ray which showed a stable loculated fluid versus pleural thickening. The patient was given labetalol 100 milligrams p.o. x1 and then labetalol 20 mg IV and Ativan 0.5 milligrams IV in the emergency department. The patient follows with Dr. Lao in the oncology clinic. She was treated with cisplatin and Alimta and is currently on maintenance treatment with Alimta and Avastin. In 2014 she presented with right pleural effusion. Cytology was inconclusive. She underwent multiple biopsies which were nondiagnostic. In July 2015 she had a pleural biopsy which was consistent with malignant mesothelioma. CT scan at that time showed right lung hydropneumothorax. There were scattered AP lymphadenopathy. There was a large loculated effusion in the right lung. The patient states that her disease is under control at this time. Her last treatment was approximately one week ago. Currently the patient is asymptomatic and she appears comfortable. She denies any headaches, no blurry vision. No chest pain, no shortness of breath. No abdominal pain. No lower extremity edema or pain. REVIEW OF SYSTEMS A comprehensive 14-point review of systems was completed which is negative except as described in the HPI. PAST MEDICAL HISTORY 1. 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 She apparently is on maintenance Alimta. 2. Gastroesophageal reflux disease. 3. Fibromyalgia, hypertension, hyperlipidemia, hypothyroidism, recurrent right pleural effusion, right breast cancer, anxiety, irritable bowel syndrome, collagenous colitis, stroke. PAST SURGICAL HISTORY: 1. Multiple right-sided thoracentesis. 2. Pleurodesis. 3. Fusion of cervical spine. 4. Appendectomy. 5. Lumpectomy. 6. Hysterectomy. 7. Right total knee replacement. 8. Carpal tunnel release. 9. Finger repair surgery. FAMILY HISTORY: Family history is noncontributory to this admission. SOCIAL HISTORY She is . She does not drink alcohol. She does smoke cigarettes occasionally. MEDICATIONS 1. Aspirin. 2. Cymbalta. 3. Antiemetics including Zofran p.r.n. Inpatient medications include: 1. Ambien 5 milligrams q hs p.r.n. 2. Senna. 3. Docusate. 4. Metoprolol 25 milligrams p.o. q12 hours. 5. Aspirin 81 milligrams daily. 6. Duloxetine 30 milligrams p.o. b.i.d. 7. Zetia 10 milligrams p.o. daily 8. Pantoprazole 10 milligrams p.o. daily. 9. Cozaar 100 milligrams p.o. daily 10. Hydrochlorothiazide 25 milligrams p.o. daily. 11. Levothyroxine 112 micrograms p.o. daily 12. Ceftriaxone 1000 milligrams q24 hours. 13. Zofran p.r.n. 14. Morphine sulfate 2 milligrams IV p.r.n. 15. Milk of Magnesia p.r.n. 16. Sennosides p.r.n. 17. Bisacodyl p.r.n. 18. Lactulose p.r.n. ALLERGIES SULFA DRUGS. ACETAMINOPHEN ADHESIVE TAPE HYDROCODONE LATEX PHYSICAL EXAMINATION Vital signs: Blood pressure is 166/90, pulse is in the 70s, temperature is 96.3, O2 sats are 100% on room air. General: Elderly female in no apparent distress. HEENT: Pupils are equal, round, react to light. EOMI. No oral thrush. No lesions. Neck: Supple. No JVD, no bruits. No lymphadenopathy. Chest: Chest is clear to auscultation bilaterally. Cardiac: S1-S2 regular rate and rhythm. Abdomen: Soft, nontender, nondistended. Bowel sounds are present. Extremities: Without any edema, erythema or cyanosis. Skin: Without any petechiae, lesions or bruises. Neuro: No focal deficits. Psychiatric: Mood and affect is appropriate. LABORATORY DATA WBC 3.7, hemoglobin 8.9, platelet count 225. Serum chemistries show a sodium of 129, potassium of 3.8, BUN 15, creatinine 0.7, GFR is 81, calcium is 9.7, total bilirubin 0.8, AST is 0.7, ALT 16, alk phos 67, total protein 6.4, albumin 2.8 lipase is 64. She had a UA on admission which shows trace leukocyte esterase, there is moderate amount of bacteria. Urine nitrite is negative. Urine culture is pending. IMAGING STUDIES Chest x-ray on admission showed stable loculated fluid versus pleural thickening in the right hemithorax. ASSESSMENT/PLAN This is a 76-year-old female who has a history of mesothelioma who has undergone treatment with [place] drug plus Alimta followed by Alimta and Avastin and apparently she is just on Alimta maintenance treatment at this time. Her disease is under control. She presents to the emergency department with elevated blood pressure. 1. Uncontrolled hypertension / hypertensive urgency. On admission her systolic blood pressure was greater than 200. I agree with optimization of blood pressure medication, consider cardiac workup. I will defer this to the primary team. 2. UTI, currently on IV Rocephin. Urine cultures pending. 3. Stage IV mesothelioma. She is currently on Alimta. She states that she is not on Avastin. Avastin can cause elevated blood pressure. We will confirm this. She will see Dr. Lao outpatient for further management of mesothelioma. 4. Anemia with hemoglobin of 8.90 and MCV 100, obtain anemia studies. Check LDH and haptoglobin, check a stool hemoccult. Thank you for allowing me to participate in the care of this patient. I will continue to follow this patient along. MD TREVON Momin/CHANDRIKA /2:08 AM /4:16 AM RANJANA
[2017-07-15] MEDS: LEVOTHYROXINE SODIUM 112 MCG TAB PO SCH (06:47)
[2017-07-15 07:09] LABS: AUTOMATED NEUTROPHIL # 2.9 TH/MM3 (1.8-7.7); BASOPHIL % 0.8 % (0.0-2.0); EOSINOPHIL # 0.1 TH/MM3 (0-0.4); EOSINOPHIL % 4.1 % (0.0-4.0); HEMATOCRIT 26.1 % (35.0-46.0); HEMO FLAGS DIFF FINAL; LYMPH % 12.9 % (9.0-44.0); LYMPHOCYTE # 0.5 TH/MM3 (1.0-4.8); MEAN CELL VOLUME 100.7 FL (80.0-100.0); MEAN CORPUSCULAR HEMOGLOBIN 35.3 PG (27.0-34.0); MEAN CORPUSCULAR HGB CONC 35.1 % (32.0-36.0); MONO % 2.8 % (0.0-8.0); NEUT % 79.4 % (16.0-70.0); PLATELET COUNT 259 TH/MM3 (150-450); RED BLOOD COUNT 2.59 MIL/MM3 (4.00-5.30); RED CELL DISTRIBUTION WIDTH 14.6 % (11.6-17.2); WHITE BLOOD COUNT 3.7 TH/MM3 (4.0-11.0)
[2017-07-15 07:26] LABS: BICARBONATE 28.3 MEQ/L (21.0-32.0); POTASSIUM 3.5 MEQ/L (3.5-5.1)
[2017-07-15] MEDS: DOCUSATE SODIUM 50 MG/SENNA 8.6 MG TAB PO SCH ×2 (09:00→21:02)
[2017-07-15] MEDS: ASPIRIN 81 MG CHEW TAB CHEW SCH (10:05)
[2017-07-15] MEDS: METOPROLOL TARTRATE 25 MG TAB PO SCH ×2 (10:05→21:02)
[2017-07-15] MEDS: DULoxetine HCl DR 30 MG CAP PO SCH ×2 (10:05→21:02)
[2017-07-15] MEDS: LOSARTAN 50 MG TAB PO SCH (10:05)
[2017-07-15] MEDS: EZETIMIBE 10 MG TAB PO SCH (10:05)
[2017-07-15] MEDS: PANTOPRAZOLE SOD 20 MG DELAYED RELEASE TAB PO SCH (10:06)
[2017-07-15] MEDS: HYDROCHLOROTHIAZIDE 25 MG TAB PO SCH (10:06)
[2017-07-15] MEDS: SODIUM CHLORIDE 0.9% FLUSH 10 ML FLUSH IV FLUSH SCH ×2 (10:10→21:03)
[2017-07-15] MEDS: HEPARIN SODIUM - SQ 10,000 UNITS/ML VIAL SQ SCH ×2 (10:10→21:02)
--- NOTE | 2017-07-15 11:03 | PD.ONC.PN ---
Subjective Subjective Remarks Afebrile overnight Pt reports she feels overall well Doing exercises in the bed to keep her strength Denies acute complaints Objective Data Date Time Temp Pulse Resp B/P (MAP) Pulse Ox O2 Delivery O2 Flow Rate FiO2 07/15/17 07:33 97.0 78 20 155/87 (109) 97 07/15/17 04:15 96.8 72 17 131/75 (93) 95 Manual Cuff/Auscultation 07/15/17 00:40 96.5 82 18 188/90 (122) 97 Automatic Cuff 07/14/17 20:30 76 07/14/17 20:09 96.3 73 18 166/90 (115) 100 07/14/17 16:00 97.1 72 18 166/88 (114) 100 07/14/17 12:00 96.1 80 18 131/60 (83) 100 07/15/17 07/15/17 07/15/17 07:00 15:00 23:00 Intake Total 709 ml Balance 709 ml Result Diagram: 07/15/17 0550 07/15/17 0550 Laboratory Results Laboratory Tests Test 07/15/17 05:50 White Blood Count 3.7 TH/MM3 Red Blood Count 2.59 MIL/MM3 Hemoglobin 9.2 GM/DL Hematocrit 26.1 % Mean Corpuscular Volume 100.7 FL Mean Corpuscular Hemoglobin 35.3 PG Mean Corpuscular Hemoglobin Concent 35.1 % Red Cell Distribution Width 14.6 % Platelet Count 259 TH/MM3 Mean Platelet Volume 6.4 FL Neutrophils (%) (Auto) 79.4 % Lymphocytes (%) (Auto) 12.9 % Monocytes (%) (Auto) 2.8 % Eosinophils (%) (Auto) 4.1 % Basophils (%) (Auto) 0.8 % Neutrophils # (Auto) 2.9 TH/MM3 Lymphocytes # (Auto) 0.5 TH/MM3 Monocytes # (Auto) 0.1 TH/MM3 Eosinophils # (Auto) 0.1 TH/MM3 Basophils # (Auto) 0.0 TH/MM3 CBC Comment DIFF FINAL Differential Comment Blood Urea Nitrogen 14 MG/DL Creatinine 0.63 MG/DL Random Glucose 84 MG/DL Calcium Level 9.5 MG/DL Sodium Level 132 MEQ/L Potassium Level 3.5 MEQ/L Chloride Level 95 MEQ/L Carbon Dioxide Level 28.3 MEQ/L Anion Gap 9 MEQ/L Estimat Glomerular Filtration Rate 92 ML/MIN Culture Results Microbiology Date/Time Source Procedure Growth Status 07/13/17 21:10 Urine Clean Catch Urine Culture - Final 10-50,000 CFU/ML MIXED GRAM POSITIVE ... Complete Administered Medications Medications (Trade) Dose Ordered Sig/Judd Route PRN Reason Start Time Stop Time Status Last Admin Dose Admin Sodium Chloride (NS Flush) 2 ml BID IV FLUSH 07/14/17 09:00 07/15/17 10:10 Ondansetron HCl (Zofran Inj) 4 mg Q6H PRN IVP NAUSEA OR VOMITING 07/14/17 00:15 07/14/17 14:04 Heparin Sodium (Porcine) (Heparin Inj) 5,000 units Q12H SQ 07/15/17 09:00 07/15/17 10:10 Morphine Sulfate (Morphine Inj) 2 mg Q3H PRN IV PUSH Pain 6-10 07/14/17 00:15 07/14/17 18:57 Senna/Docusate Sodium (Aida-Colace) 1 tab BID PO 07/14/17 09:00 07/14/17 21:57 Ceftriaxone Sodium 1000 mg/ Sodium Chloride 100 ml @ 200 mls/hr Q24H IV 07/14/17 01:00 07/15/17 00:20 Metoprolol Tartrate (Lopressor) 25 mg Q12HR PO 07/14/17 09:00 07/15/17 10:05 Aspirin (Aspirin Chew) 81 mg DAILY CHEW 07/14/17 09:00 07/15/17 10:05 Duloxetine HCl (Cymbalta Dr) 30 mg BID PO 07/14/17 09:00 07/15/17 10:05 EZETIMIBE (Zetia) 10 mg DAILY PO 07/14/17 09:00 07/15/17 10:05 Levothyroxine Sodium (Synthroid) 112 mcg DAILY@0600 PO 07/14/17 06:00 07/15/17 06:47 Pantoprazole Sodium (Protonix) 10 mg DAILY PO 07/14/17 09:00 07/15/17 10:06 Losartan Potassium (Cozaar) 100 mg DAILY PO 07/14/17 09:00 07/15/17 10:05 Hydrochlorothiazide (Hydrodiuril) 25 mg DAILY PO 07/14/17 09:00 07/15/17 10:06 Zolpidem Tartrate (Ambien) 5 mg HS PRN PO INSOMNIA 07/14/17 22:30 07/14/17 22:40 Objective Remarks GENERAL: Elderly female, resting in bed in no acute distress. SKIN: Warm and dry. HEAD: Normocephalic. EYES: No injection or drainage. NECK: Supple, trachea midline. CARDIOVASCULAR: Regular rate and rhythm without murmurs. RESPIRATORY: Clear anteriorly. Breathing unlabored. GASTROINTESTINAL: Abdomen soft, non-tender, nondistended. EXTREMITIES: No cyanosis, or edema. MUSCULOSKELETAL: Adequate muscle tone. NEUROLOGICAL: Normal speech. Moving all extremities. No obvious focal deficit. Assessment/Plan Problem List: (1) Mesothelioma ICD Codes: C45.9 - Mesothelioma, unspecified Status: Acute Plan: -- Patient has history of stage IV mesothelioma -- On Avastin which can contribute to HTN Hx/Workup: Patient is a 76-year-old female that we are seeing in our clinic for history of malignant mesothelioma. She was originally diagnosed in July [address] scan showed a right lung hydropneumothorax. There were scattered AP lymphadenopathy. She had a large loculated effusion in the right lung that time. She currently is on treatment with Avastin/Alimta and her last treatment was on 07/10. (2) Uncontrolled hypertension ICD Codes: I10 - Essential (primary) hypertension Plan: -- Overall improved -- Patient on metoprolol, losartan and hydrochlorothiazide. -- Primary managing -- Patient has had 2 doses of immunotherapy agent Avastin which may contribute to hypertension (3) UTI (urinary tract infection) ICD Codes: N39.0 - Urinary tract infection, site not specified Plan: --On Rocephin Assessment 76-year-old female with mesothelioma on therapy with Alimta and Avastin admitted for hypertensive crisis Plan 1. Hypertension improved with current regimen 2. When looking at the outpatient records it is noted the patient did have a dose of Avastin on 07/10 that likely contributed to her hypertensive episode 3. Would ideally like to continue with current outpatient regimen for treatment of cancer; we'll have to closely monitor her for hypertension once discharged 4. Continue antibiotics per primary for UTI 5. CBC in a.m; will check anemia studies Attending Statement The exam, history, and the medical decision-making described in the above note were completed with the assistance of the mid-level provider. I reviewed and agree with the findings presented. I attest that I had a [id number] encounter with the patient on the same day, and personally performed and documented my assessment and findings in the medical record Hx of mesothelioma received Alimta and Avastin received uncontrolled HTN due to Avastin was only on Cozaar and HCTZ on metoprolol asymptomatic --systolic 150s today continue to optimize BP meds d/w rn o/n events reviewed Adore Cerda Jul 15, 2017 11:03 Max Olmstead MD Jul 15, 2017 16:21
--- NOTE | 2017-07-15 15:31 | HHI.PR ---
Subjective Remarks Follow up hypertension, hyponatremia. Patient states that she is feeling a little better. No dyspnea, chest pain, nausea, vomiting. Denies dysuria. Objective Vitals Vital Signs Date Time Temp Pulse Resp B/P (MAP) Pulse Ox O2 Delivery O2 Flow Rate FiO2 07/15/17 09:36 97.5 72 16 167/91 (116) 97 07/15/17 07:33 97.0 78 20 155/87 (109) 97 07/15/17 04:15 96.8 72 17 131/75 (93) 95 Manual Cuff/Auscultation 07/15/17 00:40 96.5 82 18 188/90 (122) 97 Automatic Cuff 07/14/17 20:30 76 07/14/17 20:09 96.3 73 18 166/90 (115) 100 07/14/17 16:00 97.1 72 18 166/88 (114) 100 I/O 07/14/17 07/14/17 07/14/17 07/15/17 07/15/17 07/15/17 07:00 15:00 23:00 07:00 15:00 23:00 Intake Total 960 ml 709 ml Balance 960 ml 709 ml Intake Oral 960 ml 120 ml IV Total 589 ml # Voids 4 7 2 # Bowel Movements 0 1 Result Diagram: 07/15/17 0550 07/15/17 0550 Imaging Last Impressions Chest X-Ray 07/13/17 0000 Signed Impressions: Service Date/Time: Thursday, July 13, 2017 21:54 - CONCLUSION: Stable loculated fluid versus pleural thickening involving the right hemithorax. Quan Tierney Jr., MD Objective Remarks General: Thin elderly female in no acute distress. Heart: Regular rate and rhythm. No murmur. Lungs: Decreased breath sounds on the right. Breathing is nonlabored. Abdomen: Soft, nontender, nondistended. Extremities: No lower extremity edema. Psych: Alert and oriented. Procedures None Urinary Catheter: No Vascular Central Line Catheter: No A/P Problem List: (1) Uncontrolled hypertension ICD Code: I10 - Essential (primary) hypertension (2) UTI (urinary tract infection) ICD Code: N39.0 - Urinary tract infection, site not specified (3) Dehydration ICD Code: E86.0 - Dehydration (4) Mesothelioma ICD Code: C45.9 - Mesothelioma, unspecified Status: Acute Assessment and Plan 1. Hypertension: Blood pressure control is improved. Continue Benicar, metoprolol. 2. Dehydration: Improving. Continue IV fluids. 3. UTI: Urine culture growing mixed gram positive tatyana, likely contaminants. Continue antibiotics. 4. Mesothelioma: Follows with Dr. Lao for chemotherapy. Appreciate oncology recommendations. 5. DVT prophylaxis: Subcutaneous heparin. Primitivo Hwang MD Jul 15, 2017 15:31
[2017-07-15 17:59] LABS: AUTOMATED NEUTROPHIL # 4.2 TH/MM3 (1.8-7.7); BASOPHIL % 0.6 % (0.0-2.0); EOSINOPHIL # 0.2 TH/MM3 (0-0.4); EOSINOPHIL % 3.2 % (0.0-4.0); HEMATOCRIT 28.1 % (35.0-46.0); HEMO FLAGS DIFF FINAL; LYMPH % 10.6 % (9.0-44.0); LYMPHOCYTE # 0.5 TH/MM3 (1.0-4.8); MEAN CELL VOLUME 101.8 FL (80.0-100.0); MEAN CORPUSCULAR HEMOGLOBIN 36.3 PG (27.0-34.0); MEAN CORPUSCULAR HGB CONC 35.7 % (32.0-36.0); NEUT % 83.6 % (16.0-70.0); PLATELET COUNT 256 TH/MM3 (150-450); RED BLOOD COUNT 2.76 MIL/MM3 (4.00-5.30); RED CELL DISTRIBUTION WIDTH 14.8 % (11.6-17.2)
[2017-07-15] MEDS: oxyCODONE/ACETAMINOPHEN 5 MG/325 MG TAB PO PRN (18:08)
[2017-07-15] MEDS: ZOLPIDEM TARTRATE 5 MG TAB PO PRN (23:28)
[2017-07-16] VITALS (8 sets, daily range): BP systolic 160–190; BP diastolic 88–130; PULSE 72–92; RESP 16–19; TEMP 97.6–98.5; O2SAT 97–99
[2017-07-16] MEDS: cefTRIAXone INJ 1,000 MG in SODIUM CHLORIDE 0.9% INJ 100 ML IV SCH (01:00)
[2017-07-16] MEDS: LEVOTHYROXINE SODIUM 112 MCG TAB PO SCH (05:11)
--- NOTE | 2017-07-16 06:29 | RADRPT ---
EXAM DATE/TIME: 07/16/2017 05:17 [facility] COMPARISON: CHEST SINGLE AP, June 29, 2017, 19:30. CHEST SINGLE AP, July 13, 2017, 21:54. INDICATIONS : Short of breath. MEDICAL HISTORY : Mesothelioma. SURGICAL HISTORY : Infusaport. ENCOUNTER: Subsequent ACUITY: 2 days PAIN SCORE: 0/10 LOCATION: Bilateral chest FINDINGS: A single view of the chest demonstrates some persistent volume loss the right lung. The blunting of t he costophrenic angle suggesting a small pleural effusion. Aorta remains quite tortuous. Left-sided I bkatc-v-Kbeg in good position. The cardiomediastinal contours are unremarkable. Osseous structures are intact. CONCLUSION: Volume also some consolidation right lung base. Aoyuzd-r-Gpmy catheter in good position. Aorta is casandra te tortuous Robi Flores MD on July 16, 2017 at 6:27 Board Certified Radiologist. This report was verified electronically.
[2017-07-16 06:46] LABS: AUTOMATED NEUTROPHIL # 4.2 TH/MM3 (1.8-7.7); BASOPHIL % 0.5 % (0.0-2.0); EOSINOPHIL # 0.1 TH/MM3 (0-0.4); EOSINOPHIL % 2.5 % (0.0-4.0); HEMO FLAGS DIFF FINAL; LYMPH % 9.5 % (9.0-44.0); LYMPHOCYTE # 0.5 TH/MM3 (1.0-4.8); MEAN CELL VOLUME 99.9 FL (80.0-100.0); MEAN CORPUSCULAR HEMOGLOBIN 35.9 PG (27.0-34.0); MEAN CORPUSCULAR HGB CONC 35.9 % (32.0-36.0); MONO % 2.2 % (0.0-8.0); NEUT % 85.3 % (16.0-70.0); PLATELET COUNT 242 TH/MM3 (150-450); RED CELL DISTRIBUTION WIDTH 14.5 % (11.6-17.2); WHITE BLOOD COUNT 4.9 TH/MM3 (4.0-11.0)
[2017-07-16 07:00] LABS: ANION GAP 9 MEQ/L (5-15); BICARBONATE 26.3 MEQ/L (21.0-32.0); BLOOD UREA NITROGEN 24 MG/DL (7-18); CHLORIDE 93 MEQ/L (98-107); GLOMERULAR FILTRATION RATE 80 ML/MIN (>89); POTASSIUM 3.2 MEQ/L (3.5-5.1); SODIUM (NA) 128 MEQ/L (136-145)
[2017-07-16 07:01] LABS: TRANSFERRIN IRON PROFILE 230 MG/DL (200-360)
[2017-07-16] MEDS: SODIUM CHLORIDE 0.9% FLUSH 10 ML FLUSH IV FLUSH SCH ×2 (09:00→22:51)
[2017-07-16] MEDS: METOPROLOL TARTRATE 25 MG TAB PO SCH ×2 (09:03→22:52)
[2017-07-16] MEDS: DOCUSATE SODIUM 50 MG/SENNA 8.6 MG TAB PO SCH ×2 (09:03→22:53)
[2017-07-16] MEDS: EZETIMIBE 10 MG TAB PO SCH (09:03)
[2017-07-16] MEDS: DULoxetine HCl DR 30 MG CAP PO SCH ×2 (09:03→22:53)
[2017-07-16] MEDS: ASPIRIN 81 MG CHEW TAB CHEW SCH (09:03)
[2017-07-16] MEDS: PANTOPRAZOLE SOD 20 MG DELAYED RELEASE TAB PO SCH (09:04)
[2017-07-16] MEDS: HEPARIN SODIUM - SQ 10,000 UNITS/ML VIAL SQ SCH ×2 (09:04→22:51)
[2017-07-16] MEDS: LOSARTAN 50 MG TAB PO SCH (09:04)
[2017-07-16] MEDS: HYDROCHLOROTHIAZIDE 25 MG TAB PO SCH (09:04)
[2017-07-16] MEDS: oxyCODONE/ACETAMINOPHEN 5 MG/325 MG TAB PO PRN ×2 (09:16→18:47)
--- NOTE | 2017-07-16 10:30 | PD.ONC.PN ---
Subjective Subjective Remarks Afebrile overnight. Patient had nosebleed overnight. She states she frequently gets them when the air is dry. Bleeding has ceased during my exam. Objective Data Date Time Temp Pulse Resp B/P (MAP) Pulse Ox O2 Delivery O2 Flow Rate FiO2 07/16/17 08:01 97.7 78 19 177/130 (146) 98 07/16/17 04:00 97.9 74 16 190/89 (122) 97 07/16/17 00:00 97.6 73 18 171/94 (119) 99 07/15/17 20:00 85 07/15/17 20:00 98.2 76 16 151/86 (107) 97 07/15/17 16:08 97.6 71 16 152/89 (110) 99 07/15/17 12:33 97.8 68 16 143/84 (103) 97 07/16/17 07/16/17 07/16/17 07:00 15:00 23:00 Intake Total 480 ml Balance 480 ml Result Diagram: 07/16/17 0607 07/16/17 0607 Laboratory Results Laboratory Tests Test 07/15/17 17:43 07/16/17 06:07 White Blood Count 5.0 TH/MM3 4.9 TH/MM3 Red Blood Count 2.76 MIL/MM3 2.60 MIL/MM3 Hemoglobin 10.0 GM/DL 9.3 GM/DL Hematocrit 28.1 % 26.0 % Mean Corpuscular Volume 101.8 FL 99.9 FL Mean Corpuscular Hemoglobin 36.3 PG 35.9 PG Mean Corpuscular Hemoglobin Concent 35.7 % 35.9 % Red Cell Distribution Width 14.8 % 14.5 % Platelet Count 256 TH/MM3 242 TH/MM3 Mean Platelet Volume 6.3 FL 6.2 FL Neutrophils (%) (Auto) 83.6 % 85.3 % Lymphocytes (%) (Auto) 10.6 % 9.5 % Monocytes (%) (Auto) 2.0 % 2.2 % Eosinophils (%) (Auto) 3.2 % 2.5 % Basophils (%) (Auto) 0.6 % 0.5 % Neutrophils # (Auto) 4.2 TH/MM3 4.2 TH/MM3 Lymphocytes # (Auto) 0.5 TH/MM3 0.5 TH/MM3 Monocytes # (Auto) 0.1 TH/MM3 0.1 TH/MM3 Eosinophils # (Auto) 0.2 TH/MM3 0.1 TH/MM3 Basophils # (Auto) 0.0 TH/MM3 0.0 TH/MM3 CBC Comment DIFF FINAL DIFF FINAL Differential Comment Blood Urea Nitrogen 24 MG/DL Creatinine 0.71 MG/DL Random Glucose 91 MG/DL Calcium Level 9.5 MG/DL Sodium Level 128 MEQ/L Potassium Level 3.2 MEQ/L Chloride Level 93 MEQ/L Carbon Dioxide Level 26.3 MEQ/L Anion Gap 9 MEQ/L Estimat Glomerular Filtration Rate 80 ML/MIN Iron Level 115 MCG/DL Total Iron Binding Capacity 322 MCG/DL Percent Iron Saturation 35.7 % Vitamin B12 Level 1363 PG/ML Culture Results Microbiology Date/Time Source Procedure Growth Status 07/13/17 21:10 Urine Clean Catch Urine Culture - Final 10-50,000 CFU/ML MIXED GRAM POSITIVE ... Complete Imaging Studies Last 24 hours Impressions Chest X-Ray 07/16/17 0600 Signed Impressions: Service Date/Time: Sunday, July 16, 2017 05:17 - CONCLUSION: Volume also some consolidation right lung base. Josjjg-w-Shch catheter in good position. Aorta is quite tortuous Robi Flores MD Administered Medications Medications (Trade) Dose Ordered Sig/Judd Route PRN Reason Start Time Stop Time Status Last Admin Dose Admin Sodium Chloride (NS Flush) 2 ml BID IV FLUSH 07/14/17 09:00 07/16/17 09:00 Ondansetron HCl (Zofran Inj) 4 mg Q6H PRN IVP NAUSEA OR VOMITING 07/14/17 00:15 07/14/17 14:04 Heparin Sodium (Porcine) (Heparin Inj) 5,000 units Q12H SQ 07/15/17 09:00 07/16/17 09:04 Morphine Sulfate (Morphine Inj) 2 mg Q3H PRN IV PUSH Pain 6-10 IF NOT EVETTE PO 07/14/17 00:15 07/14/17 18:57 Senna/Docusate Sodium (Aida-Colace) 1 tab BID PO 07/14/17 09:00 07/16/17 09:03 Ceftriaxone Sodium 1000 mg/ Sodium Chloride 100 ml @ 200 mls/hr Q24H IV 07/14/17 01:00 07/16/17 01:00 Metoprolol Tartrate (Lopressor) 25 mg Q12HR PO 07/14/17 09:00 07/16/17 09:03 Aspirin (Aspirin Chew) 81 mg DAILY CHEW 07/14/17 09:00 07/16/17 09:03 Duloxetine HCl (Cymbalta Dr) 30 mg BID PO 07/14/17 09:00 07/16/17 09:03 EZETIMIBE (Zetia) 10 mg DAILY PO 07/14/17 09:00 07/16/17 09:03 Levothyroxine Sodium (Synthroid) 112 mcg DAILY@0600 PO 07/14/17 06:00 07/16/17 05:11 Pantoprazole Sodium (Protonix) 10 mg DAILY PO 07/14/17 09:00 07/16/17 09:04 Losartan Potassium (Cozaar) 100 mg DAILY PO 07/14/17 09:00 07/16/17 09:04 Hydrochlorothiazide (Hydrodiuril) 25 mg DAILY PO 07/14/17 09:00 07/16/17 09:04 Zolpidem Tartrate (Ambien) 5 mg HS PRN PO INSOMNIA 07/14/17 22:30 07/15/17 23:28 Oxycodone/ Acetaminophen (Percocet 5-325 Mg) 1 tab Q8H PRN PO PAIN SCALE 1 TO 10 IF EVETTE PO 07/15/17 16:45 07/16/17 09:16 Objective Remarks GENERAL: Elderly female sitting up in bed in [facility]. SKIN: Warm and dry. HEAD: Normocephalic. EYES: No injection or drainage. NECK: Supple, trachea midline. CARDIOVASCULAR: Regular rate and rhythm RESPIRATORY: Breath sounds equal bilaterally. No accessory muscle use. GASTROINTESTINAL: Abdomen soft, non-tender, nondistended. EXTREMITIES: No cyanosis NEUROLOGICAL: awake and alert, normal speech. Assessment/Plan Problem List: (1) Mesothelioma ICD Codes: C45.9 - Mesothelioma, unspecified Status: Acute Plan: -- Patient has history of stage IV mesothelioma -- On Avastin which can contribute to HTN Hx/Workup: Patient is a 76-year-old female that we are seeing in our clinic for history of malignant mesothelioma. She was originally diagnosed in July [address] scan showed a right lung hydropneumothorax. There were scattered AP lymphadenopathy. She had a large loculated effusion in the right lung that time. She currently is on treatment with Avastin/Alimta and her last treatment was on 07/10. (2) Uncontrolled hypertension ICD Codes: I10 - Essential (primary) hypertension Plan: -- Overall improved -- Patient on metoprolol, losartan and hydrochlorothiazide. -- Primary managing -- Patient has had 2 doses of immunotherapy agent Avastin which may contribute to hypertension (3) UTI (urinary tract infection) ICD Codes: N39.0 - Urinary tract infection, site not specified Plan: --On Rocephin Assessment 76-year-old female with mesothelioma on therapy with Alimta and Avastin admitted for hypertensive crisis Plan 1. will need better control of her hypertension prior to discharge, may need to add a fourth hypertensive, will defer to primary 2. continue antibiotics discussed with patient, nurse, Dr. Clement Attending Statement The exam, history, and the medical decision-making described in the above note were completed with the assistance of the mid-level provider. I reviewed and agree with the findings presented. I attest that I had a glho-cm-yjcw encounter with the patient on the same day, and personally performed and documented my assessment and findings in the medical record. Pt seen and examined. HTN, complicated by pain which would increase BP. Request Percocet now. Noted improvement in BP, attribute in part to Avastin. Discussed risks/ benefits, unfortunately Avastin as long t/2. BP will need to be controlled whether or not we continue with that treatment in the maintenance setting. Called at pt's request. Vicky Hargrove Jul 16, 2017 10:30 Afshan Lao MD Jul 16, 2017 18:49
[2017-07-16] MEDS ORDERED: METOPROLOL TARTRATE 25 MG TAB PO ONE (12:30)
--- NOTE | 2017-07-16 12:32 | HHI.PR ---
Subjective Remarks Follow-up uncontrolled hypertension/mesothelioma/UTI 07/16/17-patient seen and examined, BP uncontrolled however patient denies any headaches, chest pain or shortness of breath. Currently afebrile. Objective Vitals Vital Signs Date Time Temp Pulse Resp B/P (MAP) Pulse Ox O2 Delivery O2 Flow Rate FiO2 07/16/17 11:27 97.8 72 19 182/98 (126) 98 Automatic Cuff 07/16/17 08:01 97.7 78 19 177/130 (146) 98 07/16/17 04:00 97.9 74 16 190/89 (122) 97 07/16/17 00:00 97.6 73 18 171/94 (119) 99 07/15/17 20:00 85 07/15/17 20:00 98.2 76 16 151/86 (107) 97 07/15/17 16:08 97.6 71 16 152/89 (110) 99 07/15/17 12:33 97.8 68 16 143/84 (103) 97 I/O 07/15/17 07/15/17 07/15/17 07/16/17 07/16/17 07/16/17 07:00 15:00 23:00 07:00 15:00 23:00 Intake Total 709 ml 480 ml 480 ml Balance 709 ml 480 ml 480 ml Intake Oral 120 ml 480 ml 480 ml IV Total 589 ml # Voids 2 1 2 # Bowel Movements 1 1 Result Diagram: 07/16/17 0607 07/16/17 0607 Imaging Last Impressions Chest X-Ray 07/16/17 0600 Signed Impressions: Service Date/Time: Sunday, July 16, 2017 05:17 - CONCLUSION: Volume also some consolidation right lung base. Dfvbfo-v-Zkhq catheter in good position. Aorta is quite tortuous Robi Flores MD Objective Remarks GENERAL: NAD SKIN: Warm and dry. HEAD: Normocephalic. EYES: No scleral icterus. No injection or drainage. NECK: Supple, trachea midline. No JVD or lymphadenopathy. CARDIOVASCULAR: Regular rate and rhythm without murmurs, gallops, or rubs. RESPIRATORY: Breath sounds equal bilaterally. No accessory muscle use. GASTROINTESTINAL: Abdomen soft, non-tender, nondistended. MUSCULOSKELETAL: No cyanosis, or edema. BACK: Nontender without obvious deformity. No CVA tenderness. Procedures None A/P Problem List: (1) Uncontrolled hypertension ICD Code: I10 - Essential (primary) hypertension (2) UTI (urinary tract infection) ICD Code: N39.0 - Urinary tract infection, site not specified (3) Dehydration ICD Code: E86.0 - Dehydration (4) Mesothelioma ICD Code: C45.9 - Mesothelioma, unspecified Status: Acute Assessment and Plan 76-year-old female with Uncontrolled hypertension Increase Lopressor to 50 mg every 12 hours, will give Lopressor 25 mg by mouth 1 now Continue losartan 100 mg daily, hydrochlorothiazide 25 mg daily Might consider a fourth agent if no control of BP Mesothelioma Management per oncology Continue with Avastin/Alimta Urinary tract infection Patient currently on Rocephin however urine culture negative. Therefore will discontinue antibiotics DVT prophylaxis: Bilateral SCDs Talib Clement MD Jul 16, 2017 12:32
[2017-07-16] MEDS ORDERED: POTASSIUM CHLORIDE 10 MEQ CONTROLLED RELEASE TAB PO ONE (16:00)
[2017-07-16] MEDS ORDERED: PILL SPLITTER OTHER PRN (22:00)
[2017-07-16] MEDS: ZOLPIDEM TARTRATE 5 MG TAB PO PRN (22:51)
[2017-07-16] MEDS: amLODIPine BESYLATE 5 MG TAB PO SCH (22:52)
[2017-07-16] MEDS: POTASSIUM CHLORIDE 20 MEQ CONTROLLED RELEASE TAB PO SCH (22:52)
[2017-07-17] VITALS: BP 154/80; PULSE 71; RESP 20; TEMP 97.8; O2SAT 97
[2017-07-17 00:07] VITALS: PULSE 72
[2017-07-17 04:07] VITALS: PULSE 73
[2017-07-17 04:54] VITALS: BP 156/100; PULSE 82; RESP 20; TEMP 98.5; O2SAT 96
[2017-07-17] MEDS: LEVOTHYROXINE SODIUM 112 MCG TAB PO SCH (04:58)
[2017-07-17 08:25] VITALS: BP 158/80; PULSE 81; RESP 18; TEMP 98.8; O2SAT 96
[2017-07-17] MEDS: LOSARTAN 50 MG TAB PO SCH (08:51)
[2017-07-17] MEDS: ASPIRIN 81 MG CHEW TAB CHEW SCH (08:51)
[2017-07-17] MEDS: POTASSIUM CHLORIDE 20 MEQ CONTROLLED RELEASE TAB PO SCH (08:52)
[2017-07-17] MEDS: METOPROLOL TARTRATE 25 MG TAB PO SCH (08:52)
[2017-07-17] MEDS: DULoxetine HCl DR 30 MG CAP PO SCH (08:52)
[2017-07-17] MEDS: DOCUSATE SODIUM 50 MG/SENNA 8.6 MG TAB PO SCH (08:52)
[2017-07-17] MEDS: amLODIPine BESYLATE 5 MG TAB PO SCH (08:52)
[2017-07-17] MEDS: PANTOPRAZOLE SOD 20 MG DELAYED RELEASE TAB PO SCH (08:53)
[2017-07-17] MEDS: oxyCODONE/ACETAMINOPHEN 5 MG/325 MG TAB PO PRN (08:53)
[2017-07-17] MEDS: EZETIMIBE 10 MG TAB PO SCH (08:53)
[2017-07-17] MEDS: SODIUM CHLORIDE 0.9% FLUSH 10 ML FLUSH IV FLUSH SCH (08:54)
[2017-07-17] MEDS: HEPARIN SODIUM - SQ 10,000 UNITS/ML VIAL SQ SCH (08:54)
[2017-07-17] MEDS ORDERED: MAGNESIUM SULFATE 1 GM PREMIX 100 ML IV PRN (09:00)
[2017-07-17] MEDS ORDERED: POTASSIUM CHLORIDE 10 MEQ CAP PO ONE (09:15)
--- NOTE | 2017-07-17 09:22 | PD.ONC.PN ---
Subjective Subjective Remarks Afebrile overnight. Patient slept well last night. No nosebleed. Feels ready to go home. Objective Data Date Time Temp Pulse Resp B/P (MAP) Pulse Ox O2 Delivery O2 Flow Rate FiO2 07/17/17 08:25 98.8 81 18 158/80 (106) 96 07/17/17 04:54 98.5 82 20 156/100 (118) 96 07/17/17 04:07 73 07/17/17 00:07 72 07/17/17 00:00 97.8 71 20 154/80 (104) 97 07/16/17 21:07 16 07/16/17 20:14 76 07/16/17 20:00 98.5 78 16 160/88 (112) 97 07/16/17 16:45 97.7 74 17 163/92 (115) 99 07/16/17 13:54 92 174/97 (122) 07/16/17 11:27 97.8 72 19 182/98 (126) 98 Automatic Cuff Result Diagram: 07/16/17 0607/16/17 0607 Administered Medications Medications (Trade) Dose Ordered Sig/Judd Route PRN Reason Start Time Stop Time Status Last Admin Dose Admin Sodium Chloride (NS Flush) 2 ml BID IV FLUSH 07/14/17 09:00 07/17/17 08:54 Ondansetron HCl (Zofran Inj) 4 mg Q6H PRN IVP NAUSEA OR VOMITING 07/14/17 00:15 07/14/17 14:04 Heparin Sodium (Porcine) (Heparin Inj) 5,000 units Q12H SQ 07/15/17 09:00 07/17/17 08:54 Morphine Sulfate (Morphine Inj) 2 mg Q3H PRN IV PUSH Pain 6-10 IF NOT EVETTE PO 07/14/17 00:15 07/14/17 18:57 Senna/Docusate Sodium (Aida-Colace) 1 tab BID PO 07/14/17 09:00 07/17/17 08:52 Aspirin (Aspirin Chew) 81 mg DAILY CHEW 07/14/17 09:00 07/17/17 08:51 Duloxetine HCl (Cymbalta Dr) 30 mg BID PO 07/14/17 09:00 07/17/17 08:52 EZETIMIBE (Zetia) 10 mg DAILY PO 07/14/17 09:00 07/17/17 08:53 Levothyroxine Sodium (Synthroid) 112 mcg DAILY@0600 PO 07/14/17 06:00 07/17/17 04:58 Pantoprazole Sodium (Protonix) 10 mg DAILY PO 07/14/17 09:00 07/17/17 08:53 Losartan Potassium (Cozaar) 100 mg DAILY PO 07/14/17 09:00 07/17/17 08:51 Zolpidem Tartrate (Ambien) 5 mg HS PRN PO INSOMNIA 07/14/17 22:30 07/16/17 22:51 Oxycodone/ Acetaminophen (Percocet 5-325 Mg) 1 tab Q8H PRN PO PAIN SCALE 1 TO 10 IF EVETTE PO 07/15/17 16:45 07/17/17 08:53 Metoprolol Tartrate (Lopressor) 50 mg Q12HR PO 07/16/17 21:00 07/17/17 08:52 Amlodipine Besylate (Norvasc) 2.5 mg DAILY PO 07/16/17 21:45 07/17/17 08:52 Objective Remarks GENERAL: Pleasant elderly female sitting up in bed in [facility]. SKIN: Warm and dry. HEAD: Normocephalic. EYES: No injection or drainage. NECK: Supple, trachea midline. CARDIOVASCULAR: Regular rate and rhythm RESPIRATORY: Breath sounds equal bilaterally. No accessory muscle use. GASTROINTESTINAL: Abdomen soft, non-tender, nondistended. EXTREMITIES: No cyanosis NEUROLOGICAL: awake and alert, normal speech. Assessment/Plan Problem List: (1) Mesothelioma ICD Codes: C45.9 - Mesothelioma, unspecified Status: Acute Plan: -- Patient has history of stage IV mesothelioma -- On Avastin which can contribute to HTN Hx/Workup: Patient is a 76-year-old female that we are seeing in our clinic for history of malignant mesothelioma. She was originally diagnosed in July [address] scan showed a right lung hydropneumothorax. There were scattered AP lymphadenopathy. She had a large loculated effusion in the right lung that time. She currently is on treatment with Avastin/Alimta and her last treatment was on 07/10. (2) Uncontrolled hypertension ICD Codes: I10 - Essential (primary) hypertension Plan: -- Overall improved -- Patient on metoprolol, losartan and Amlodipine -- Patient has had 2 doses of immunotherapy agent Avastin which may contribute to hypertension Assessment 76-year-old female with mesothelioma on therapy with Alimta and Avastin admitted for hypertensive crisis Plan 1. blood pressure improved. we will continue to follow and titrate blood pressure medications outpatient. 2. Ms. Guzman will call and make an appointment to see Dr. Lao within one week of discharge. 3. oncology clear for discharge. Attending Statement Agree with above- as discussed. Pt was discharged before could be seen. Vicky Hargrove Jul 17, 2017 09:22 Afshan Lao MD Jul 17, 2017 23:03
[2017-07-17 10:12] LABS: AUTOMATED NEUTROPHIL # 1.7 TH/MM3 (1.8-7.7); BASOPHIL % 1.3 % (0.0-2.0); EOSINOPHIL % 1.2 % (0.0-4.0); HEMATOCRIT 26.1 % (35.0-46.0); HEMO FLAGS DIFF FINAL; LYMPH % 16.2 % (9.0-44.0); LYMPHOCYTE # 0.4 TH/MM3 (1.0-4.8); MEAN CELL VOLUME 99.8 FL (80.0-100.0); MEAN CORPUSCULAR HEMOGLOBIN 35.6 PG (27.0-34.0); MEAN CORPUSCULAR HGB CONC 35.7 % (32.0-36.0); MONO % 5.5 % (0.0-8.0); NEUT % 75.8 % (16.0-70.0); PLATELET COUNT 216 TH/MM3 (150-450); RED BLOOD COUNT 2.61 MIL/MM3 (4.00-5.30); RED CELL DISTRIBUTION WIDTH 14.2 % (11.6-17.2); WHITE BLOOD COUNT 2.3 TH/MM3 (4.0-11.0)
[2017-07-17 10:18] LABS: BICARBONATE 26.9 MEQ/L (21.0-32.0); MAGNESIUM 1.1 MG/DL (1.5-2.5)
--- NOTE | 2017-07-17 10:49 | HHI.PR ---
Subjective Remarks Follow-up uncontrolled hypertension/mesothelioma/UTI 07/16/17-patient seen and examined, BP uncontrolled however patient denies any headaches, chest pain or shortness of breath. Currently afebrile. 07/17/17-patient seen and examined, BP now acceptable ,she denies headaches, shortness of breath Objective Vitals Vital Signs Date Time Temp Pulse Resp B/P (MAP) Pulse Ox O2 Delivery O2 Flow Rate FiO2 07/17/17 08:25 98.8 81 18 158/80 (106) 96 07/17/17 04:54 98.5 82 20 156/100 (118) 96 07/17/17 04:07 73 07/17/17 00:07 72 07/17/17 00:00 97.8 71 20 154/80 (104) 97 07/16/17 21:07 16 07/16/17 20:14 76 07/16/17 20:00 98.5 78 16 160/88 (112) 97 07/16/17 16:45 97.7 74 17 163/92 (115) 99 07/16/17 13:54 92 174/97 (122) 07/16/17 11:27 97.8 72 19 182/98 (126) 98 Automatic Cuff I/O 07/16/17 07/16/17 07/16/17 07/17/17 07/17/17 07/17/17 07:00 15:00 23:00 07:00 15:00 23:00 Intake Total 480 ml 100 ml Balance 480 ml 100 ml Intake Oral 480 ml IV Total 100 ml # Voids 2 2 2 Result Diagram: 07/17/1791407/17/17914 Objective Remarks GENERAL: NAD SKIN: Warm and dry. HEAD: Normocephalic. EYES: No scleral icterus. No injection or drainage. NECK: Supple, trachea midline. No JVD or lymphadenopathy. CARDIOVASCULAR: Regular rate and rhythm without murmurs, gallops, or rubs. RESPIRATORY: Breath sounds equal bilaterally. No accessory muscle use. GASTROINTESTINAL: Abdomen soft, non-tender, nondistended. MUSCULOSKELETAL: No cyanosis, or edema. BACK: Nontender without obvious deformity. No CVA tenderness. Procedures None A/P Problem List: (1) Uncontrolled hypertension ICD Code: I10 - Essential (primary) hypertension (2) UTI (urinary tract infection) ICD Code: N39.0 - Urinary tract infection, site not specified (3) Dehydration ICD Code: E86.0 - Dehydration (4) Mesothelioma ICD Code: C45.9 - Mesothelioma, unspecified Status: Acute Assessment and Plan 76-year-old female with Uncontrolled hypertension BP improving Continue Lopressor 50 mg every 12 hours Continue losartan 100 mg daily, Norvasc Mesothelioma Management per oncology Continue with Avastin/Alimta Urinary tract infection s/p Rocephin however urine culture negative. DVT prophylaxis: Bilateral SCDs Talib Clement MD Jul 17, 2017 10:49
[2017-07-17] MEDS ORDERED: AMLO5 PO (11:01)
[2017-07-17] MEDS ORDERED: METO25TA3 PO (11:01)
[2017-07-17] MEDS ORDERED: COZA50TA PO (11:01)
--- NOTE | 2017-07-17 11:05 | HHI.DS ---
Discharge Summary Admission Date Jul 13, 2017 at 23:55 Discharge Date: Jul 17, 2017 Admitting Diagnosis (1) Uncontrolled hypertension ICD Code: I10 - Essential (primary) hypertension (2) UTI (urinary tract infection) ICD Code: N39.0 - Urinary tract infection, site not specified (3) Dehydration ICD Code: E86.0 - Dehydration (4) Mesothelioma ICD Code: C45.9 - Mesothelioma, unspecified Status: Acute Procedures None Brief History - From Admission This is a 76-year-old female with a PMH of Anxiety, Depression, Breast CA, Mesothelioma on Chemotherapy and h/o CVA who was brought to the ER secondary to elevated BP and confusion. Per report, is physician, noted BP at home of >200 systolic, took home medications w/ little improvement. On arrival to ER noted to be slightly confused, mainly complains of nausea and generalized pain. BP BP 204/99, HR 102, O2 sat 98% on RA, Afebrile. S/p Labetalol 100mg PO , Labetalol 20mg IV x2 and Ativan 0.5mg IV in ER, repeat BP 165/85, HR 87. CBC at baseline. Chemistry unremarkable except for GFR 82. Na 126. UA with moderate bacteria and LE. CXR was stable loculated fluid versus pleural thickening. CBC/BMP: 07/17/17 0915 07/17/17 0915 Significant Findings Laboratory Tests Test 07/15/17 05:50 07/15/17 17:43 07/16/17 06:07 07/17/17 09:15 White Blood Count 3.7 TH/MM3 (4.0-11.0) 2.3 TH/MM3 (4.0-11.0) Red Blood Count 2.59 MIL/MM3 (4.00-5.30) 2.76 MIL/MM3 (4.00-5.30) 2.60 MIL/MM3 (4.00-5.30) 2.61 MIL/MM3 (4.00-5.30) Hemoglobin 9.2 GM/DL (11.6-15.3) 10.0 GM/DL (11.6-15.3) 9.3 GM/DL (11.6-15.3) 9.3 GM/DL (11.6-15.3) Hematocrit 26.1 % (35.0-46.0) 28.1 % (35.0-46.0) 26.0 % (35.0-46.0) 26.1 % (35.0-46.0) Mean Corpuscular Volume 100.7 FL (80.0-100.0) 101.8 FL (80.0-100.0) Mean Corpuscular Hemoglobin 35.3 PG (27.0-34.0) 36.3 PG (27.0-34.0) 35.9 PG (27.0-34.0) 35.6 PG (27.0-34.0) Mean Platelet Volume 6.4 FL (7.0-11.0) 6.3 FL (7.0-11.0) 6.2 FL (7.0-11.0) 6.5 FL (7.0-11.0) Neutrophils (%) (Auto) 79.4 % (16.0-70.0) 83.6 % (16.0-70.0) 85.3 % (16.0-70.0) 75.8 % (16.0-70.0) Eosinophils (%) (Auto) 4.1 % (0.0-4.0) Lymphocytes # (Auto) 0.5 TH/MM3 (1.0-4.8) 0.5 TH/MM3 (1.0-4.8) 0.5 TH/MM3 (1.0-4.8) 0.4 TH/MM3 (1.0-4.8) Sodium Level 132 MEQ/L (136-145) 128 MEQ/L (136-145) Chloride Level 95 MEQ/L (98-107) 93 MEQ/L (98-107) Blood Urea Nitrogen 24 MG/DL (7-18) 23 MG/DL (7-18) Potassium Level 3.2 MEQ/L (3.5-5.1) Estimat Glomerular Filtration Rate 80 ML/MIN (>89) Vitamin B12 Level 1363 PG/ML (193-986) Neutrophils # (Auto) 1.7 TH/MM3 (1.8-7.7) Magnesium Level 1.1 MG/DL (1.5-2.5) Imaging Last Impressions Chest X-Ray 07/16/17 0600 Signed Impressions: Service Date/Time: Sunday, July 16, 2017 05:17 - CONCLUSION: Volume also some consolidation right lung base. Ulhxdv-s-Naie catheter in good position. Aorta is quite tortuous Robi Flores MD PE at Discharge GENERAL: NAD SKIN: Warm and dry. HEAD: Normocephalic. EYES: No scleral icterus. No injection or drainage. NECK: Supple, trachea midline. No JVD or lymphadenopathy. CARDIOVASCULAR: Regular rate and rhythm without murmurs, gallops, or rubs. RESPIRATORY: Breath sounds equal bilaterally. No accessory muscle use. GASTROINTESTINAL: Abdomen soft, non-tender, nondistended. MUSCULOSKELETAL: No cyanosis, or edema. BACK: Nontender without obvious deformity. No CVA tenderness. Hospital Course Patient admitted secondary to uncontrolled hypertension for which she was started on Lopressor and adjusted accordingly, losartan as well as home medication including hydrochlorothiazide. However hydrochlorothiazide were discontinued and patient was started on Norvasc. BP improved. She was initially started on IV Rocephin for abnormal UA however this was discontinued as urine culture returned negative. Patient was continued on her treatment for Mesothelioma by oncology. DVT and GI prophylaxis were provided. Prior to discharge, patient's condition improved and vitals remained stable. Pt Condition on Discharge: Stable Discharge Disposition: Disch w/ Home Health Serv Discharge Time: > 30 minutes Discharge Instructions DIET: Follow Instructions for: Heart Healthy Diet Activities you can perform: Regular-No Restrictions Follow up Referrals: Oncology PCP Follow-up - 1 Week New Medications: Amlodipine (Norvasc) 5 Mg Tab 2.5 MG PO DAILY for Blood Pressure Management, #30 TAB 11 Refills Losartan (Cozaar) 50 Mg Tab 100 MG PO DAILY for Blood Pressure Management, #30 TAB 11 Refills Metoprolol Tartrate (Metoprolol Tartrate) 25 Mg Tab 50 MG PO Q12HR for Blood Pressure Management, #60 TAB 11 Refills Continued Medications: Aspirin (Aspirin) 81 Mg Chew 81 MG CHEW DAILY, TAB 0 Refills Calcium Carbonate-Cholecalciferol (Calcium 600 with Vitamin D) 600-400 mg-Unit Tab 1 TAB PO DAILY for Calcium Supplement, TAB 0 Refills Cyanocobalamin Odt (B-12 Dots) 500 Mcg Tab 500 MCG SL DAILY for Nutritional Supplement, #1 BOTTLE [address] (Cymbalta DR) 30 Mg Capdr 30 MG PO BID, #30 CAP 0 Refills Ezetimibe (Zetia) 10 Mg Tab 10 MG PO DAILY, #30 TAB 0 Refills Levothyroxine (Synthroid) 112 Mcg Tab 112 MCG PO DAILY for Thyroid, #30 TAB 0 Refills Multivitamin with Minerals (Multiple Vitamin) 1 Each Tablet Omeprazole (Prilosec) 10 Mg Cap 10 MG PO DAILY, #30 CAP 0 Refills Zolpidem (Ambien) 5 Mg Tab 5 MG PO HS PRN for INSOMNIA, TAB 0 Refills Discontinued Medications: Olmesartan-Hydrochlorothiazide (Benicar Hct) 40-25 mg Tab 1 TAB PO DAILY for Blood Pressure Management, #30 TAB 0 Refills Talib Clement MD Jul 17, 2017 11:05
[2017-07-17 11:10] LABS: POTASSIUM 3.6 MEQ/L (3.5-5.1)
--- NOTE | 2017-07-17 11:20 | HHI.FF ---
Face to Face Verification Diagnosis: (1) Mesothelioma (2) Uncontrolled hypertension (3) UTI (urinary tract infection) Physical Therapy Order: Evaluate and Treat Home Health Nursing Order: Signs/symptoms of disease process I have seen patient Maddie Guzman on 07/17/17. My clinical findings support the need for the requested home health care services because: Deconditioned w/ increased weakness I certify that my clinical findings support that this patient is homebound because: Poor cardiac reserve Talib Clement MD Jul 17, 2017 11:20
[2017-07-17] MEDS ORDERED: ONDANSETRON ODT 4 MG TAB PO ONE (12:30)
== END 2017-07-17 12:57 | disposition home health service (06) | DRG 305 ==
LOC: NEPE 20:28 → NEDA 23:55 → N06B 07-14 01:02 → HCIN 07-15 08:50
PROVIDERS: ADMIT Hospitalist; ATTEND Hospitalist
DX: I16.0 Hypertensive urgency (principal); G62.9 Polyneuropathy, unspecified; C45.9 Mesothelioma, unspecified; E86.0 Dehydration; E87.1 Hypo-osmolality and hyponatremia; F32.9 Major depressive disorder, single episode, unspecified; E03.9 Hypothyroidism, unspecified; E78.5 Hyperlipidemia, unspecified; Z96.651 Presence of right artificial knee joint; F41.9 Anxiety disorder, unspecified; M19.90 Unspecified osteoarthritis, unspecified site; M79.7 Fibromyalgia; K21.9 Gastro-esophageal reflux disease without esophagitis; I10 Essential (primary) hypertension; M54.2 Cervicalgia; K58.9 Irritable bowel syndrome, unspecified; R04.0 Epistaxis; R82.71 Bacteriuria; F17.210 Nicotine dependence, cigarettes, uncomplicated; Z86.73 Personal history of transient ischemic attack (TIA), and cerebral infarction without residual deficits; Z85.3 Personal history of malignant neoplasm of breast
CPT/HCPCS: 71010; 80048; 80053; 81001; 82607; 83540; 83550; 83690; 83735; 85025; 87086; 93005; 96374; 96375; 96376; C9113; J0696; J1644; J2060; J2270; J2405

== ENCOUNTER 2018-09-09 20:12 | Inpatient (IN) ==
[2018-09-09] MEDS ORDERED: LORazepam 0.5 MG Tablet PO PRN (20:31)
[2018-09-09] MEDS ORDERED: Temazepam 15 MG Capsule PO PRN (21:00)
[2018-09-09] MEDS: Morphine Inj 4 MG/ML Vial IV.PUSH SCH ×2 (21:51→23:24)
[2018-09-09] MEDS: Metoprolol Tartrate 50 MG Tablet PO SCH (21:55)
[2018-09-09] MEDS ORDERED: Multivitamin Inj 10 ML, Folic Acid Inj 1 MG in Sodium Chlor 0.9% Inj 500 ML IV.SIG ONE (22:00)
[2018-09-09] MEDS: Dextrose 5%/NaCl 0.9% Inj 1,000 ML IV.CONT SCH (23:26)
[2018-09-10] MEDS: MILNACIPRAN 100 MG PO SCH ×3 (00:19→20:41)
[2018-09-10] MEDS: Morphine Inj 4 MG/ML Vial IV.PUSH SCH ×9 (01:00→18:53)
--- NOTE | 2018-09-10 01:17 | MH ---
cc: Afshan Lao MD DATE OF ADMISSION: 09/09/2018 DATE OF SERVICE: 09/09/2018 ADMITTING PHYSICIAN: Dr. Lao. ADMISSION DIAGNOSES: 1. Metastatic mesothelioma. 2. Intractable pain. SECONDARY DIAGNOSES: 1. Parkinson's. 2. Fibromyalgia with chronic pain. 3. Hypothyroidism. 4. Hypertension. 5. Gastroesophageal reflux disease. HISTORY OF PRESENT ILLNESS: Mrs. Guzman is a 77-year-old woman with multiple medical problems. She has history of cataracts, colitis, depression, diverticulosis, fibromyalgia with chronic pain, gastroesophageal reflux disease, hypercholesterolemia, hypertension, hypothyroidism, osteoarthritis, osteoporosis and a history of right breast cancer in 2002. She is well known for a diagnosis of right lung mesothelioma confirmed 12/25/2016. She presented with recurrent pleural effusion. The pathology was initially debated until a confirmatory biopsy that shows malignant mesothelioma in December 2016. She was initially treated with cisplatin and Alimta. Gradually Avastin was added. She was placed on Alimta and Avastin maintenance and gradually on Avastin maintenance alone. Avastin was held due to complications of diarrhea. The diarrhea appeared to be unrelated to the Avastin. Avastin was restarted and in December 2017, CT PET scan showed disease progression on maintenance Avastin. She was restarted on Alimta and Avastin. After several cycles of Alimta and Avastin. She was restarted on Avastin and Alimta combination. She had a lot of toxicity related to the Alimta chemotherapy. After several cycles, a repeat CT PET scan was performed on 08/19/2018 that showed significant disease progression. There is increase in intensity and enlarging nodules in the right lung. There are also multiple new nodules in the left lung characteristic of metastatic disease. PD-L1 testing was performed on her original biopsy from 2016. The tumor was less than 1% PD-L1 positive and immune cells were less than 1% PD-1 positive. She was nevertheless offered a checkpoint inhibitor. Her first dose of nivolumab was started 08/23/2018. She was due for her next dose of lymphoma. However, in the intervening 2 weeks, she has had progressive symptoms of chest pain. She has had shoulder pain. She was referred to a pain physician who proceeded to give her injections to the scapula which did not effectively treat her pain. Right chest pain still persists. She was given a trial of methadone, which caused some confusion and questionable efficacy in terms of pain relief. She continues on Percocet or oxycodone on a p.r.n. basis. Her appetite is decreased. She has lost weight. She has decreased p.o. intake. She had a significant decrease in performance status and a decline in well being and Mrs. Guzman consulted hospice over the weekend. They were promptly seen in clinic on the day of the admission. We discussed the option of admission to the hospital for management of acute intractable pain. She has a complex pain history from her fibromyalgia and chronic pain. She has responded in the past to Percocet on a p.r.n. basis. She has tried gabapentin, Duloxetine and Lyrica as adjunctive therapy for pain without much relief. She was reluctant to come into the hospital for admission, but gradually agreed because of her symptoms. PAST MEDICAL HISTORY: As described above. PAST SURGICAL HISTORY: Appendectomy, breast biopsy, cardiac catheterization, colonoscopy, hernia repair, hysterectomy, tonsillectomy, right-sided chest tube, right-sided pleurodesis, lumbar laminectomy, left shoulder rotator cuff repair, right knee replaced, cervical fusion, mastectomy right breast. ALLERGIES: LATEX, SULFA, TAPE, LORTAB. MEDICATIONS: 1. Ambien p.r.n. 2. Amlodipine. 3. Aspirin. 4. Duloxetine. 5. Levothyroxine. 6. Multivitamin. 7. Percocet/oxycodone p.r.n. 8. Savella. 9. Zetia. 10. Folic acid. 11. Synthroid. 12. Omeprazole. FAMILY HISTORY: Father is with history of myocardial infarction. No significant family history of cancer. PHYSICAL EXAM: VITAL SIGNS: Vitals from oncology clinic. Blood pressure 159/89, saturation 96%, heart rate 95. Body mass index is 20. Weight is 55 kilos. Previous weight is 60.5 kilos 08/12/2018. GENERAL: Mrs. Guzman is a well-developed, tired appearing, elderly woman. She looks much thinner than previous examination. HEENT: Her pupils are round, reactive to light and accommodation. Oropharynx is clear. NECK: Supple. LUNGS: Clear with diminished breath sounds throughout the right lung field. CARDIOVASCULAR: Reveals a normal rate and rhythm. ABDOMEN: Benign. EXTREMITIES: Lower extremities with no edema. NEUROLOGIC: Nonfocal. She has tenderness in the right side of the chest beneath the right breast extending to the back and the scapula. LABORATORY DATA: No new labs are available. Labs from 08/20/2018 shows a normal CBC with mild macrocytosis. Comprehensive metabolic panel significant for hyponatremia with sodium 131. Liver functions were normal. Albumin is decreased at 3.2. ASSESSMENT AND PLAN: Mrs. Guzman is a 77-year-old woman with multiple medical problems. She has a complex past medical history. She is known in oncology clinic for her diagnosis of right lung mesothelioma. She has had recent CT PET scan evaluation which shows progressive disease. She is started on a checkpoint inhibitor, which is new. We discussed her worsening pain symptoms, which began prior to the checkpoint inhibitor and has worsened over the last 2 weeks. She is not using a long-acting pain medication. We discussed admission to the hospital to monitor her pain and manage her pain. She is offered a basal rate of morphine 2 mg every 2 hours. We will monitor her oxycodone requirement over the next 24 hours. The case was discussed with Dr. Rowe. Palliative Care, Dr. Rowe were consulted to assist in the pain management. We discussed a prudent use of steroids as adjunctive therapy. Unfortunately, steroids and general aggregates the effect of the checkpoint inhibitor. However, in light of her symptoms, we are looking to alleviate her symptoms, we may consider a short course of steroids to see if that helps with her symptoms of pain. While in the hospital, Dr. Bi Barba is consulted. She is well known to Dr. Bi Barba, who performed her pleurodesis and pleural biopsy. We will consult cardiothoracic surgery if there is anything they could offer by way of alleviating her pain symptoms in the right lung. She looks clinically dry. Labs will be obtained. She is offered IV fluid hydration and piggyback of a multivitamin bag. Her and her 's questions were answered to their satisfaction. They were agreeable with the above plan. Her medications from home are continued. Her antihypertensive medications are continued. Blood pressure will be monitored. Her questions were answered to her satisfaction. MD TRACIE Camarena/ana maria , 09:49 PM , 10:09 PM
[2018-09-10] MEDS: Cathflo Activase Inj 2 MG Vial I-CATHETER PRN ×2 (04:26→05:39)
[2018-09-10] MEDS: Dextrose 5%/NaCl 0.9% Inj 1,000 ML IV.CONT SCH (04:26)
[2018-09-10 05:43] LABS: Baso % (Auto) 0.3 % (0.0-2.0); Eos # (Auto) 0.2 th/mm3 (0.0-0.4); Eos % (Auto) 3.1 % (0.0-4.0); Hematocrit 42.1 % (35.0-46.0); Hemoglobin 14.6 gm/dL (11.6-15.3); Lymph # (Auto) 0.7 th/mm3 (1.0-4.8); Lymph % (Auto) 10.3 % (9.0-44.0); Mean Corpuscular HGB Conc 34.7 % (32.0-36.0); Mean Corpuscular Hemoglobin 34.6 pg (27.0-34.0); Mean Corpuscular Volume 99.6 fL (80.0-100.0); Mean Platelet Volume 7.5 fL (7.0-11.0); Mono # (Auto) 0.4 th/mm3 (0.0-0.9); Mono % (Auto) 6.4 % (0.0-8.0); Neut # (Auto) 5.4 th/mm3 (1.8-7.7); Neut % (Auto) 79.9 % (16.0-70.0); Platelet Count 163 th/mm3 (150-450); Red Blood Count 4.23 mil/mm3 (4.00-5.30); Red Cell Distribution Width 14.4 % (11.6-17.2); Reticulocyte Percent 2.1 % (0.4-3.0); White Blood Count 6.8 th/mm3 (4.0-11.0)
[2018-09-10 05:50] LABS: Activated Partial Thrombo Time 26.2 sec (23.4-31.7); Prothrombin Time 10.5 sec (9.8-11.6)
[2018-09-10 06:12] LABS: Alanine Aminotransferase 24 U/L (10-53); Albumin 3.1 g/dL (3.4-5.0); Anion Gap 8 meq/L (5-15); Aspartate Aminotransferase 16 U/L (15-37); Blood Urea Nitrogen 17 mg/dL (7-18); Calcium 9.1 mg/dL (8.5-10.1); Carbon Dioxide 26.8 meq/L (21.0-32.0); Chloride 103 meq/L (98-107); Glomerular Filtration Rate Greater Than 89 mL/min (>89); Glucose,Random 77 mg/dL (74-106); Lactate Dehydrogenase 175 U/L (84-246); Potassium 3.6 meq/L (3.5-5.1); Sodium 138 meq/L (136-145)
[2018-09-10 06:14] LABS: Alkaline Phosphatase 88 U/L (45-117); Total Protein 6.8 g/dL (6.4-8.2)
[2018-09-10] MEDS: Levothyroxine 125 MCG Tablet PO SCH (06:46)
[2018-09-10] MEDS: Ezetimibe 10 MG Tablet PO SCH (09:21)
[2018-09-10] MEDS: Aspirin 325 MG Tablet PO SCH (09:21)
[2018-09-10] MEDS: Folic Acid 1 MG Tablet PO SCH (09:21)
[2018-09-10] MEDS: Pantoprazole Sodium 20 MG DR Tablet PO SCH (09:22)
[2018-09-10] MEDS: Metoprolol Tartrate 50 MG Tablet PO SCH ×2 (09:22→20:41)
[2018-09-10] MEDS: amLODIPine 10 MG Tablet PO SCH (09:23)
[2018-09-10] MEDS: Enoxaparin Inj 40 MG/0.4 ML Syringe SQ SCH (09:24)
--- NOTE | 2018-09-10 11:16 | P.DIET ---
Nutritional Evaluation Type of nutrition evaluation: initial Nutrition screening: Weight Loss > 10 lbs, MDC (Malnutrition) Objective - Diagnosis metastatic mesothelioma, intractable pain - Objective Body Mass Index: 20 [place] body weight: 56 kg % IBW: 96 (125lb) Body Weight Used for Calculations: Actual (54kg) Energy Needs - Lower Range (kCal/kg): 32 Energy Needs - Upper Range (kCal/kg): 38 Lower Limit kCal/kg (kCals): 1,728 Upper Limit kCal/kg (kCals): 2,052 Lower Limit Protein Factor (Grams per Kg): 1.2 Upper Limit Protein Factor (Grams per Kg): 1.5 Lower Protein Needs (Protein): 64 Upper Protein Needs (Protein): 81 Dietitian Reviewed in Medical Record: Current diet, Curent medications, Labs, Medical history Diet Order: Regular diet Oral Diet Intake Amount: Poor <50% Objective Comments: PMH; parkinsons, fibromyalgia, hypothyroidism, HTN, GERD Labs; nutritionally unremarkable Medications; reviewed Assessment Assessment: [place] for malnutrition; Pt is currently at nutritional risk r/t clinical status and recent weight loss. Pt with PMH of metastatic mesothelioma and presents to ED with intractable pain and recurrent pleural effusion. Visited pt this morning who reports a very poor appetite and recent weight loss. Pt reported that she has a very sore tongue and is having some pain associated with swallowing that is also affecting her appetite. Reported this information to RILEY Beaver. Agreeable to MD note regarding malnutrition as pt with ongoing poor appetite, weight loss and evident muscle wasting in orbital area. Discussed nutritional supplements with pt and she said she does not like to eat anything artificial but I explained to her that her energy and protein needs are increased at this time and it is very important that she receives nutrition. Pt agreed to try Ensure Enlive once per day. Each can of Ensure Enlive will provide 350kcal and 2-g protein. Will continue to monitor PO intake, supplement acceptance and clinical course. Dietitian following. Recommendations: 1. Ensure Enlive BID 2. Please encourage PO intake 3. Monitor PO intake and supplement acceptance 4. Dietitian following Dietitian to Monitor: Lab values, Supplement acceptance, Diet tolerance, PO Intake
--- NOTE | 2018-09-10 11:43 | P.PNONC ---
Subjective Interval history: Afebrile. Patient sitting in bed, in no acute distress. She reports currently her pain is controlled with pain medication. Reports mouth sores and pain in her mouth and chapped lips. Objective Vital Signs/Intake & Output: Vital Signs 09/09/18 20:50 09/09/18 22:15 09/10/18 00:21 Temperature 97.8 F Pulse Rate 83 Respiratory Rate 18 16 16 Blood Pressure 155/98 H Pulse Oximetry 97 09/10/18 00:22 09/10/18 04:00 09/10/18 08:00 Temperature 97.5 F L 97.4 F L 97.5 F L Pulse Rate 77 72 76 Respiratory Rate 16 20 20 Blood Pressure 151/88 H 167/78 H 154/76 H Pulse Oximetry 95 95 96 Intake & Output 09/09/18 09/10/18 09/10/18 18:59 06:59 18:59 Intake Total 685 / 685 Output Total 200 / 200 Balance 485 / 485 Weight 54.5 kg Intake: IV 525 / 525 MVI-12 Inj 10 ML Folvite Inj 1 525 / 525 MG In NS Inj 500 ML @ 125 mls/ hr IV.SIG ONCE ONE Rx#:[id number] Oral 160 / 160 Output: Urine 200 / 200 Other: # Voids 1 Weight On Admission 54.5 kg Result Diagrams: 09/10/18 04:09 09/10/18 04:09 Laboratory Results: Laboratory Results - last 24 hr 09/10/18 09/10/18 09/10/18 04:09 04:09 04:09 WBC 6.8 RBC 4.23 Hgb 14.6 Hct 42.1 MCV 99.6 MCH 34.6 H MCHC 34.7 RDW 14.4 Plt Count 163 D MPV 7.5 Neut % (Auto) 79.9 H Lymph % (Auto) 10.3 [place] % (Auto) 6.4 Eos % (Auto) 3.1 Baso % (Auto) 0.3 Neut # (Auto) 5.4 Lymph # (Auto) 0.7 L [place] # (Auto) 0.4 Eos # (Auto) 0.2 Baso # (Auto) 0.0 WBC Differential . Differential Comment Auto diff final Retic Count 2.1 Absolute Retic 88.2 PT 10.5 INR 1.0 APTT 26.2 Sodium 138 Potassium 3.6 Chloride 103 Carbon Dioxide 26.8 Anion Gap 8 BUN 17 Creatinine 0.60 Estimated GFR Greater than 89 Random Glucose 77 Calcium 9.1 Total Bilirubin 0.8 AST 16 ALT 24 Alkaline Phosphatase 88 Lactate Dehydrogenase 175 Total Protein 6.8 Albumin 3.1 L Medications: Active Medications Generic Name Dose Route Start Last Admin Trade Name Freq PRN Reason Stop Dose Admin Alteplase, Recombinant 2 mg 09/09/18 20:31 09/10/18 05:39 Cathflo Activase Inj I-CATHETER 2 mg UNSCH PRN Administration for clotted access port Amlodipine Besylate 10 mg 09/10/18 09:00 09/10/18 09:23 Norvasc PO 10 mg DAILY CATALINO Administration Aspirin 81 mg 09/10/18 09:00 09/10/18 09:21 Aspirin PO 81 mg DAILY CATALINO Administration Dexamethasone Sodium Phosphate 4 mg 09/10/18 09:00 09/10/18 09:24 Decadron Inj IV.PUSH 4 mg Q12HR CATALINO Administration Duloxetine HCl 30 mg 09/09/18 21:00 09/10/18 09:21 Cymbalta PO 30 mg BID CATALINO Administration Ezetimibe 10 mg 09/10/18 09:00 09/10/18 09:21 Zetia PO 10 mg DAILY CATALINO Administration Enoxaparin Sodium 40 mg 09/10/18 09:00 09/10/18 09:24 Lovenox Inj SQ 40 mg Q24H CATALINO Administration Folic Acid 1 mg 09/10/18 09:00 09/10/18 09:21 Folic Acid PO 1 mg DAILY CATALINO Administration Lactulose 15 ml 09/09/18 21:00 09/10/18 09:23 Lactulose Liq PO 15 ml BID CATALINO Administration Levothyroxine Sodium 125 mcg 09/10/18 06:00 09/10/18 06:46 Synthroid PO 125 mcg DAILY@0600 CATALINO Administration Metoprolol Tartrate 50 mg 09/09/18 21:00 09/10/18 09:22 Lopressor PO 50 mg BID CATALINO Administration Milnacipran HCl 50 mg 09/09/18 23:00 09/10/18 09:22 Savella PO 50 mg BID CATALINO Administration Morphine Sulfate 2 mg 09/09/18 20:45 09/10/18 09:23 Morphine Inj IV.PUSH 09/10/18 20:44 2 mg Q2H CATALINO Administration Oxycodone HCl 20 mg 09/09/18 20:31 09/10/18 04:40 Roxicodone PO 20 mg Q3H PRN Administration Pain Scale 8 to 10 Pantoprazole Sodium 20 mg 09/10/18 09:00 09/10/18 09:22 Protonix PO 20 mg DAILY CATALINO Administration Prochlorperazine Edisylate 10 mg 09/09/18 20:31 09/09/18 23:22 Compazine Inj IV.PUSH 10 mg Q4H PRN Administration NAUSEA OR VOMITING Objective Remarks: GENERAL: Chronically ill-appearing frail elderly female patient, in no acute distress. SKIN: Warm and dry. HEAD: Normocephalic. EYES: No scleral icterus. No injection or drainage. MOUTH: [place], dry mucous membranes, scattered tiny white patches. NECK: Supple, trachea midline. CARDIOVASCULAR: Regular rate and rhythm without murmurs. RESPIRATORY: Breath sounds diminished, equal bilaterally. No accessory muscle use. GASTROINTESTINAL: Abdomen soft, non-tender, nondistended. EXTREMITIES: No cyanosis, or edema. MUSCULOSKELETAL: Decreased muscle tone. NEUROLOGICAL: No obvious focal deficit. Awake, alert, and oriented x3. PSYCHIATRIC: Appropriate mood and affect; insight and judgment normal. Assessment/Plan - Plan Ms. ibarra is an elderly frail 77-year-old female patient with mesothelioma. Currently hospitalized for pain management. Plan: 1. Right lung mesothelioma, recently started on checkpoint inhibitor. 2. Pain management, appreciate palliative care's assistance. 3. Mouth pain, patient with tiny white patches throughout, start Magic mouthwash. Patient also with dry chapped lips, Chapstick ordered. 4. Continue supportive care. - Attending Statement The exam, history, and the medical decision-making described in the above note were completed with the assistance of the mid-level provider. I reviewed and agree with the findings presented. I attest that I had a [id number] encounter with the patient on the same day, and personally performed and documented my assessment and findings in the medical record. Patient seen and examined in the morning. Over the last 8 hours feels that she has had good pain control. Morphine 2 mg every 2 hours is helping. She does not wish to change it to every 3 hours yet. She has oxycodone codon for breakthrough. She is looking forward to seeing Dr. Rowe in the palliative care team. We discussed a dietitian consult in light of her weight loss. She was given IV fluid hydration overnight. I anticipate stopping IV fluid. Physical therapy will be consulted for her deconditioned state. She is a high fall risk. Lastly Dr. Barba was consulted to see if any surgical maneuver to alleviate her pain symptoms in the right chest. It is associated with her progressive disease from the mesothelioma. Labs were reviewed. DVT prophylaxis continues. Her home medication continues. Noted is the mild hypertension. In part this is attributed to pain. Blood pressure medication can be adjusted.
[2018-09-10] MEDS: Nystatin/Diphenhydramine/Lidocaine Mouthwash (Adult) 120 ML Botttle SWISH-SWAL SCH ×3 (13:23→20:41)
--- NOTE | 2018-09-10 14:35 | P.CONPAL ---
Consult Service: Palliative Care Requesting Physician: Afshan Lao Reason for Consult: a. To assist with evaluation and management of symptoms including: pain, constipation. b. To assist medical decision maker(s) with: better understanding of current medical conditions; weighing benefits/burdens of medical treatment options; making medical treatment decisions. Primary Care Provider: Cole Henao MD History of Present Illness History of Present Illness: Mrs. Guzman is a 77 year old female with past medical history of anxiety, depression, Parkinson's disease, fibromyalgia, hypothyroidism, hypertension, hypercholesterolemia, osteoporosis, osteoarthritis, breast cancer (2002), prior CVA and currently on treatment for malignant mesothelioma (right lung) under the direction of Dr. Lao. Patient was originally diagnosed with mesothelioma in December 2016, biopsy confirmed. She was treated with Cisplatin and Alimta, eventually Avastin was added. She was then on maintenance therapy with Alimta and Avastin. Later Avastin was held due to diarrhea. In December 2017, PET/CT revealed disease progression despite therapy. She had complication of treatment related toxicities. In August 2018, PET/CT again revealed disease progression with increased intensity and enlarging nodules in right lung, new nodules in left lung. PD-L1 positive less than 1% and she was started on Nivolumab (08/23/18). Unfortunately, the patient developed worsening chest and shoulder pain, she was referred to pain management physician who injected scapula without relief. She was also given trial of Methadone which caused drowsiness and was therefore discontinued. Patient was seen in Dr. Lao office on 09/09/18, was admitted to hospital for intractable pain secondary to malignant mesothelioma. Discussed and reviewed inpatient and outpatient oncology records with Rae Navarro APRN with oncology. Upon review of records and confirmation with patient , in June she was prescribed Methadone 10mg PO daily, only used briefly due to increased drowsiness. Prior to admission, she was was prescribed Oxycodone 10 -20 mg PO every 4 hours PRN pain. She reports taking Oxycodone 25mg PO every 4 hours ATC, though reports she would sleep at night uninterrupted. She then states she would awake at 4am in pain and need to take the Oxycodone. She reports until recently Oxycodone was effective in managing her pain. Over the past few weeks right sided chest pain increased. The pain has been there constantly since the diagnosis of Mesothelioma. Patient reports pain worsened with recent disease progression, the pain that was once confined to right lateral chest now radiates throughout entire right lung into diaphragm area and recently into the left lung. She also reports right anterior chest is tender to touch. Patient rates her chest pain 1/10 during my visit. She also reports some oral discomfort, has a few tiny white patches, oncology ordered MMW 10mL swish and swallow QID, not yet given. Patient was medicated with Morphine 2mg IV about 1 hour prior to my visit, prior to administration of Morphine she tells me her pain was rated 9/10. Patient has received Morphine 2mg IV x 8 doses (total 16mg ) in the past 24 hours. Additionally, Oxycodone 10-20mg PO every 3 hours is ordered, she has had 20mg x 1 dose (20mg) in the past 24 hours. Dexamethasone 4mg IV was started 09/10/18 at 9am (patient has had 1 dose). Mrs. Guzman reports no BM since 08/23/18. Abdomen soft and non-tender. Positive bowels sounds and passing gas per patient report. On Lactulose 15mL BID, has had 2 doses since admission. Palliative care was consulted to assist with pain management. Patient hopes to get better control of her pain to return home for additional therapy for mesothelioma. She is open to recommendations of palliative care and Dr. Lao for management of her pain. Will discuss with Dr. Rowe and make recommendations for pain management, patient may benefit from Long acting Morphine and continuation of PRN Oxycodone. Recommend also addition of Senna -S BID for constipation. Function/Cognitive Trajectory: Patient reports recent decline in nutritional and functional status. She has been eating small amounts, she tells me she lost 10 pounds "over the holidays." She has not had much of an appetite for some time and tells me her is not the "best cook." She was using a travel WC to get around at home over the past few weeks. She tells me she could not get from her bed to the kitchen without the WC. She has been unable to shower due to hot water issues and debility in the home over the past few weeks. She feels it has been harder for her to care for herself recently. Review of Systems Constitutional: Reports anorexia, Reports daytime sleepiness, Reports fatigue, Reports lack of energy, Reports weakness, Reports weight loss ("10 pound weight loss over the holidays") Ears, Nose, Mouth, and Throat: Reports dry mouth, Reports poor balance Cardiovascular: Reports chest pain, Reports shortness of breath Respiratory: Reports shortness of breath Gastrointestinal: Reports constipation Genitourinary: Denies abnormal periods, Denies abnormal vaginal bleeding, Denies absent period, Denies bleeding between periods, Denies blood in urine, Denies difficulty starting urination, Denies difficulty urinating, Denies dribbling after urination, Denies frequent nighttime urination, Denies genital itching, Denies genital lesions, Denies heavy periods, Denies hot flashes, Denies light periods, Denies nipple discharge, Denies painful intercourse, Denies painful periods, Denies painful urination, Denies pelvic pain, Denies prolapse symptoms, Denies sexual problems, Denies side pain, Denies urinary incontinence, Denies urinary urgency, Denies vaginal discharge, Denies vaginal dryness, Denies vaginal odor, Denies vaginal itching, Denies other Musculoskeletal: Reports back pain, Reports decreased muscle mass, Reports joint pain, Reports muscle weakness Skin/Breast: Denies acne, Denies bleeding lesions, Denies boil, Denies breast swelling, Denies breast skin changes, Denies breast pain, Denies breast lump, Denies change in breast shape, Denies change in hair, Denies change in skin color, Denies changing lesions, Denies dry skin, Denies excessive hair growth, Denies hair loss, Denies itching, Denies lesions, Denies nail changes, Denies new lesions, Denies nipple discharge, Denies non-healing lesions, Denies redness , Denies sensitivity to light, Denies rash, Denies skin pain, Denies skin ulcer , Denies sores, Denies stretch carver, Denies unusual bruising, Denies wounds, Denies yellowing of the skin, Denies other Neurologic: Reports weakness Psychiatric: Reports anxiety, Reports change in appetite (decreased), Reports depression Hematologic/Lymphatic: Reports easy bruising PMFSH - History History Provided By: Patient - Medical History Medical History: Medical History (Last Reviewed 09/10/18 @ 13:40 by Katherin Quintero) Breast cancer CVA (cerebral vascular accident) Colitis Constipation Diverticulosis Fibromyalgia GERD (gastroesophageal reflux disease) History of hysterectomy Hypothyroidism Osteoarthritis Osteoporosis - Surgical History Surgical History: Surgical History (Last Updated 09/10/18 @ 13:40 by Katherin Quintero) History of appendectomy History of chest tube placement History of colonoscopy History of lumbar spinal fusion History of lung biopsy History of right mastectomy History of rotator cuff surgery History of thoracentesis History of tonsillectomy Hx of decompressive lumbar laminectomy Status post cervical spinal fusion Status post epidural steroid injection Status post right knee replacement Status post robot-assisted surgical procedure - Family History Family History: Family History (Last Updated 09/10/18 @ 16:30 by Katherin Quintero) Sister Breast cancer Other Patient's father is - Social History I have reviewed the patient's Social History: Yes - Tobacco History Second Hand Smoke Exposure: No Smoking Status: Never smoker - Alcohol History How Often Do You Have a Drink Containing Alcohol: 2 to 4 times a month - Substance Use History Substance History: No History of Abuse - Immunization History Tetanus Immunization: <5 Years Hx Influenza Vaccine This Season: Yes Medications and Allergies Allergies Allergy/AdvReac Type Severity Reaction Status Date / Time adhesive Allergy Severe REDNESS,CEDRICK Unverified 06/29/17 19:25 H latex Allergy Intermediate RED RASH Unverified 06/29/17 19:25 acetaminophen Allergy Mild ITCHING Unverified 06/29/17 19:25 hydrocodone Allergy Mild ITCHING Unverified 06/29/17 19:25 Sulfa (Sulfonamide Allergy Mild HIVES Unverified 06/29/17 19:25 Antibiotics) Active Medications: Active Medications Alteplase, Recombinant (Cathflo Activase Inj) 2 mg I-CATHETER UNSCH PRN PRN Reason: for clotted access port Last Admin: 09/10/18 05:39 Dose: 2 mg Amlodipine Besylate (Norvasc) 10 mg PO DAILY [facility] Last Admin: 09/10/18 09:23 Dose: 10 mg Aspirin (Aspirin) 81 mg PO DAILY [facility] Last Admin: 09/10/18 09:21 Dose: 81 mg Dexamethasone Sodium Phosphate (Decadron Inj) 4 mg IV.PUSH Q12HR [facility] Last Admin: 09/10/18 09:24 Dose: 4 mg Duloxetine HCl (Cymbalta) 30 mg PO BID [facility] Last Admin: 09/10/18 09:21 Dose: 30 mg Ezetimibe (Zetia) 10 mg PO DAILY [facility] Last Admin: 09/10/18 09:21 Dose: 10 mg Enoxaparin Sodium (Lovenox Inj) 40 mg SQ Q24H [facility] Last Admin: 09/10/18 09:24 Dose: 40 mg Folic Acid (Folic Acid) 1 mg PO DAILY [facility] Last Admin: 09/10/18 09:21 Dose: 1 mg Ondansetron HCl 8 mg/ Dextrose 54 mls @ 200 mls/hr IV.SIG Q8H PRN PRN Reason: NAUSEA OR VOMITING Lactulose (Lactulose Liq) 15 ml PO BID [facility] Last Admin: 09/10/18 09:23 Dose: 15 ml Levothyroxine Sodium (Synthroid) 125 mcg PO DAILY@0600 [facility] Last Admin: 09/10/18 06:46 Dose: 125 mcg Lorazepam (Ativan) 0.5 mg PO Q6HR PRN PRN Reason: ANXIETY Metoprolol Tartrate (Lopressor) 50 mg PO BID [facility] Last Admin: 09/10/18 09:22 Dose: 50 mg Milnacipran HCl (Savella) 50 mg PO BID [facility] Last Admin: 09/10/18 09:22 Dose: 50 mg Morphine Sulfate (Morphine Inj) 2 mg IV.PUSH Q2H [facility] Stop: 09/10/18 20:44 Last Admin: 09/10/18 13:02 Dose: 2 mg Multi-Ingredient Mouthwash/Gargle (Magic Mouthwash Adult Liq) 10 ml SWISH-SWAL QID [facility] Last Admin: 09/10/18 13:23 Dose: Not Given Oxycodone HCl (Roxicodone) 20 mg PO Q3H PRN PRN Reason: Pain Scale 8 to 10 Last Admin: 09/10/18 04:40 Dose: 20 mg Oxycodone HCl (Roxicodone) 10 mg PO Q3H PRN PRN Reason: Pain Scale 4 to 7 Padimate O (Chapstick) 1 applicatio TOPICAL UNSCH PRN PRN Reason: CHAPPED LIPS Pantoprazole Sodium (Protonix) 20 mg PO DAILY [facility] Last Admin: 09/10/18 09:22 Dose: 20 mg Prochlorperazine Edisylate (Compazine Inj) 10 mg IV.PUSH Q4H PRN PRN Reason: NAUSEA OR VOMITING Last Admin: 09/09/18 23:22 Dose: 10 mg Zolpidem Tartrate (Ambien) 10 mg PO HS PRN PRN Reason: SLEEP Advance Directives Advance Directives Date on File: 04/27/11 Living Will: Yes Healthcare Surrogate: Yes Health Care Surrogate Name and Number: Dex Guzman (Bill), spouse: [phone] Documented care wishes: LW indicates if she should have a terminal condition and 2 MDs agree have determined that there can be no recovery from such condition and that her would be imminent if life prolonging procedures are withheld, terminated or withdrawn, that she directs lif prolonging procedures including NG or IV sustenance with withdrawn and she be permitted to naturally with administration of medication or procedures to provide comfort or to alleviate pain... Today's verbally stated goals: Patient hopes to get better control of her pain to return home for additional therapy for mesothelioma. She is open to recommendations of palliative care and Dr. Lao for management of her pain. Ethical and Legal Issues: Patient is currently capacitated to make her own health care decisions. Living Will on file dated 04/27/2011. She has designated her spouse, Dex Guzman (Bill) as her health care surrogate should she lose capacity. Physical Exam Vital Signs: Vital Signs - 24 hr 09/09/18 20:50 09/09/18 22:15 09/10/18 00:21 Temperature 97.8 F Pulse Rate 83 Respiratory Rate 18 16 16 Blood Pressure 155/98 H Pulse Oximetry 97 09/10/18 00:22 09/10/18 04:00 09/10/18 08:00 Temperature 97.5 F L 97.4 F L 97.5 F L Pulse Rate 77 72 76 Respiratory Rate 16 20 20 Blood Pressure 151/88 H 167/78 H 154/76 H Pulse Oximetry 95 95 96 09/10/18 12:00 Temperature 97.5 F L Pulse Rate 82 Respiratory Rate 20 Blood Pressure 155/78 H Pulse Oximetry 96 I&O: Intake & Output 09/08/18 09/09/18 09/10/18 09/11/18 06:59 06:59 06:59 06:59 Intake Total 685 / 685 Output Total 200 / 200 Balance 485 / 485 Weight 54.5 kg Physical Exam: CONSTITUTIONAL/GENERAL: This is a frail, elderly patient, in no apparent distress. TUBES/LINES/DRAINS: left port. SKIN: No jaundice, rashes, or lesions. Ecchymoses on upper extremities. No wounds seen anteriorly. Skin temperature appropriate. Not diaphoretic. HEAD: Atraumatic. Normocephalic. EYES: Pupils equal and round and reactive. Extraocular motions intact. No scleral icterus. No injection or drainage. Fundi not examined. ENT: Hearing grossly normal. Nose without bleeding or purulent drainage. Dry oral mucosa. Tiny white patches in mouth. NECK: Trachea midline. CARDIOVASCULAR: Regular rate and rhythm without murmurs, gallops, or rubs. No JVD. Peripheral pulses symmetric. RESPIRATORY/CHEST: Symmetric, unlabored respirations. Clear to auscultation. Diminished breath sounds right. Old right mastectomy. GASTROINTESTINAL: Abdomen soft, non-tender, nondistended. No hepato-splenomegaly , or palpable masses. No guarding. Bowel sounds present. GENITOURINARY: Without palpable bladder distension. MUSCULOSKELETAL: Muscle wasting noted. Extremities without clubbing, cyanosis, or edema. No joint tenderness or effusion noted. No calf tenderness. No mottling or clubbing. LYMPHATICS: No palpable cervical or supraclavicular adenopathy. NEUROLOGICAL: Awake and alert. Tires easily. Follows commands. Cognitively sharp. Moves all extremities. PSYCHIATRIC: Denies anxiety/depression. no apparent hallucinations or other psychotic thought process. Diagnostic Tests Laboratory: Laboratory Results - last 72 hr 09/10/18 09/10/18 09/10/18 04:09 04:09 04:09 WBC 6.8 RBC 4.23 Hgb 14.6 Hct 42.1 MCV 99.6 MCH 34.6 H MCHC 34.7 RDW 14.4 Plt Count 163 D MPV 7.5 Neut % (Auto) 79.9 H Lymph % (Auto) 10.3 Calhoun % (Auto) 6.4 Eos % (Auto) 3.1 Baso % (Auto) 0.3 Neut # (Auto) 5.4 Lymph # (Auto) 0.7 L Calhoun # (Auto) 0.4 Eos # (Auto) 0.2 Baso # (Auto) 0.0 WBC Differential . Differential Comment Auto diff final Retic Count 2.1 Absolute Retic 88.2 PT 10.5 INR 1.0 APTT 26.2 Sodium 138 Potassium 3.6 Chloride 103 Carbon Dioxide 26.8 Anion Gap 8 BUN 17 Creatinine 0.60 Estimated GFR Greater than 89 Random Glucose 77 Calcium 9.1 Total Bilirubin 0.8 AST 16 ALT 24 Alkaline Phosphatase 88 Lactate Dehydrogenase 175 Total Protein 6.8 Albumin 3.1 L Result Diagrams: 09/10/18 04:09 09/10/18 04:09 Patient/Family Conference Present at Family Conference: Met with patient at bedside. No family present. She advises me she is tired at the beginning of my visit and that she may fall off to sleep. Family Conference Time: 60 Family Conference Location: Bedside Issues Discussed: * Palliative care role, purpose, approach * Additional medical, psychosocial, and spiritual history * Patients general health, functional status, and cognitive changes in the months leading up to the current hospitalization * Patient/family understanding of the current medical problems * Questions answered to the best of my ability * Palliative care contact information provided Patient verbalizes desire for pain control in hopes to return home to continue "chemotherapy" for mesothelioma. She indicates her called hospice over the weekend to seek adequate pain control, not because they were considering transition to comfort measures. Assessment and Plan - Disease Oriented Problem List (1) Malignant pleural mesothelioma (2) Intractable pain - Symptom Scale (1) Intractable pain 0-10 Scale: 1 (2) Constipation 0-10 Scale: Unable to quantify Pertinent Non-Medical Issues: Psychosocial: . 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 They have 3 sons and 1 daughter. Never smoked. No history drug use, occasional alcohol use in the past. Spiritual: Anglican nathan. Legal: Patient is currently capacitated to make her own health care decisions. Living Will on file dated 04/27/2011. She has designated her spouse, Dex Guzman (Bill ) as her health care surrogate should she lose capacity. Ethical issues impacting care: No known concerns at this time. Important Contacts: * Dr. Dex Guzman, HCS/ Spouse: [phone] * Toribio Guzman, son: [phone] Prognosis: Mrs. Guzman is a 77 year old female with malignant pleural mesothelioma undergoing treatment with Dr. Lao. Code Status: Full Code Plan: * Patient has a Living Will on file dated 04/13/2011 in which she has designated her spouse, Dex Guzman as health care surrogate should she lose capacity. * FULL CODE * Patient hopes to get better control of her pain to return home for additional therapy for mesothelioma. She is open to recommendations of palliative care and Dr. Lao for management of her pain. * SYMPTOMS: Pain: Patient has constant, diffuse right sided chest pain and left chest pain secondary to mesothelioma. Morphine 2mg IV x 8 doses (16mg) and Oxycodone 20mg PO x 1 dose in the past 24 hours (total 78mg oral Morphine equivalent in the past 24 hours). Discussed with Dr. Rowe, Dr. Lao and spouse, Dr. Guzman. Plan to start Morphine sulfate 30mg PO every 12 hours ATC and continue Oxycodone 25-30mg PO every 3 hours PRN breakthrough pain. Please give PRN Oxycodone regardless of last dose of scheduled Morphine. Constipation: LBM 08/23/18 per patient report. On Lactulose 15mL every 12 hours ATC. Add Senna -S BID for constipation. * Palliative care number provided. * Palliative care will continue to follow to assist with symptom management and further clarification of goals of medical treatment as needed. Appreciation Thank you for the opportunity to participate in the care of Maddie Farnaz Thomas. Attestation Collaborating MD Comments: Chart reviewed. Case discussed with Katherin Quintero APRN and Dr. Lao. I personally phoned Dr. Guzman after my visit and after discussion with Dr. Lao. 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 She was admitted primarily for pain control. She was started on scheduled parenteral morphine at time of admission as well as IV steroids and is doing better today. At time of my visit: Afebrile Awake, alert, cognitively clear. Decreased breaths sounds on right. COR: RRR without murmur. Abdomen: Benign Tenderness over right lower rib cage area. Pain is somewhat complex given history of right mastectomy, fibromyalgia, arthritis, in addition to the malignancy. Patient reports she was on Percocet 10 for pain control about twice daily long before she was diagnosed with the cancer. Patient has had a significant functional decline and is now having her wheel her from bed to kitchen. She is using the bedside commode. She is losing weight. Goals are to receive more cancer directed treatments. Patient has a living will. PLAN: == Will transition to oral meds to get ready for discharge * Start long acting morphine at 30 mg q 12 hour ATC * Continue with breakthrough oxycodone 25-30 mg q 3 hours prn == Steroids will be tapered by Dr. Lao == Will address patients' constipation with a more aggressive bowel protocol. == Have begun education of patient regarding use of pain meds. * Discussed balancing pain relief with sedation. She can help guide us whether to get her more comfortable with more sedation, or wider awake with greater discomfort. she understands it is sometimes difficult to to have great pain control and be wide awake. * Discussed importance of calling if pain is not well controlled * Will need reminding that the breakthrough oxycodone may be given every 3 hours regardless of when the last long acting morphine was given. == Discussed nutrition. She has very little appetite and wants to eat less healthy and sweeter foods. I have let her know that it's probably better to get some more calories in right now even if the foods are the not the most wholesome, rather than to continue to lose weight because she is not interested in eating any of the healthier foods. Attestation: To help prompt me to consider important information that might be impacting today's encounter and assessment, information from prior notes written by myself or my colleagues may have been "brought forward" into today's note. My signature on this note, however, is an attestation that I personally performed the exam, history, and/or decision-making noted today, and, unless otherwise indicated, the interactions with patient, family, and staff as well as the review of records all occurred today. I also attest that the listed assessment and stated plan reflect my best clinical judgment today based on the combination of historical information, prior notes, and today's exam/ interactions. When time spent is documented, it refers only to time spent today by the signer, or if indicated, combined time spent today by collaborating physician/nurse practitioner.
[2018-09-10] MEDS: Senna/Docusate Sodium 8.6/50 MG Tablet PO SCH (20:41)
[2018-09-10] MEDS: Morphine Sulfate 30 MG SR Tablet PO SCH (20:42)
[2018-09-11] MEDS: Levothyroxine 125 MCG Tablet PO SCH (05:10)
[2018-09-11] MEDS: Nystatin/Diphenhydramine/Lidocaine Mouthwash (Adult) 120 ML Botttle SWISH-SWAL SCH ×4 (09:34→20:55)
[2018-09-11] MEDS: Enoxaparin Inj 40 MG/0.4 ML Syringe SQ SCH (09:35)
[2018-09-11] MEDS: MILNACIPRAN 100 MG PO SCH ×2 (09:36→20:56)
[2018-09-11] MEDS: amLODIPine 10 MG Tablet PO SCH (09:36)
[2018-09-11] MEDS: Folic Acid 1 MG Tablet PO SCH (09:37)
[2018-09-11] MEDS: Ezetimibe 10 MG Tablet PO SCH (09:37)
--- NOTE | 2018-09-11 09:37 | P.PNONC ---
Subjective Interval history: Patient currently eating breakfast. She reports her pain is currently controlled with her medications. Discussed willingness to go to rehab, the patient would like rehab to gain her strength. Discussed with case management. Objective Vital Signs/Intake & Output: Vital Signs 09/10/18 12:00 09/10/18 16:00 09/10/18 20:10 Temperature 97.5 F L 97.6 F 97.4 F L Pulse Rate 82 68 86 Respiratory Rate 20 18 18 Blood Pressure 155/78 H 138/76 158/82 H Pulse Oximetry 96 95 95 09/10/18 20:35 09/11/18 00:38 09/11/18 02:00 Temperature 97.5 F L Pulse Rate 80 Respiratory Rate 18 16 16 Blood Pressure 149/91 H Pulse Oximetry 93 L 09/11/18 03:34 09/11/18 03:37 Temperature 97.4 F L Pulse Rate 74 Respiratory Rate 16 16 Blood Pressure 165/91 H Pulse Oximetry 95 Intake & Output 09/10/18 09/11/18 09/11/18 18:59 06:59 18:59 Intake Total 480 / 480 740 / 740 Output Total 525 / 525 600 / 600 Balance -45 / -45 140 / 140 Weight 55 kg Intake: IV 500 / 500 Oral 480 / 480 240 / 240 Output: Urine 525 / 525 600 / 600 Other: # Voids 2 Result Diagrams: 09/10/18 04:09 09/10/18 04:09 Medications: Active Medications Generic Name Dose Route Start Last Admin Trade Name Freq PRN Reason Stop Dose Admin Alteplase, Recombinant 2 mg 09/09/18 20:31 09/10/18 05:39 Cathflo Activase Inj I-CATHETER 2 mg UNSCH PRN Administration for clotted access port Amlodipine Besylate 10 mg 09/10/18 09:00 09/10/18 09:23 Norvasc PO 10 mg DAILY CATALINO Administration Aspirin 81 mg 09/10/18 09:00 09/10/18 09:21 Aspirin PO 81 mg DAILY CATALINO Administration Dexamethasone Sodium Phosphate 4 mg 09/10/18 09:00 09/10/18 20:41 Decadron Inj IV.PUSH 4 mg Q12HR CATALINO Administration Duloxetine HCl 30 mg 09/09/18 21:00 09/10/18 20:42 Cymbalta PO 30 mg BID CATALINO Administration Ezetimibe 10 mg 09/10/18 09:00 09/10/18 09:21 Zetia PO 10 mg DAILY CATALINO Administration Enoxaparin Sodium 40 mg 09/10/18 09:00 09/10/18 09:24 Lovenox Inj SQ 40 mg Q24H CATALINO Administration Folic Acid 1 mg 09/10/18 09:00 09/10/18 09:21 Folic Acid PO 1 mg DAILY CATALINO Administration Lactulose 15 ml 09/09/18 21:00 09/10/18 20:40 Lactulose Liq PO 15 ml BID CATALINO Administration Levothyroxine Sodium 125 mcg 09/10/18 06:00 09/11/18 05:10 Synthroid PO 125 mcg DAILY@0600 [facility] Administration Metoprolol Tartrate 50 mg 09/09/18 21:00 09/10/18 20:41 Lopressor PO 50 mg BID CATALINO Administration Milnacipran HCl 50 mg 09/09/18 23:00 09/10/18 20:41 Savella PO 50 mg BID CATALINO Administration Morphine Sulfate 30 mg 09/10/18 21:00 09/10/18 20:42 Oramorph Sr PO 30 mg Q12HR CATALINO Administration Multi-Ingredient Mouthwash/Gargle 10 ml 09/10/18 13:00 09/10/18 20:41 Magic Mouthwash Adult Liq SWISH-SWAL 10 ml QID CATALINO Administration Oxycodone HCl 30 mg 09/10/18 18:11 09/11/18 05:09 Roxicodone PO 30 mg Q3H PRN Administration PAIN SCALE 6 TO 10 Padimate O 1 applicatio 09/10/18 11:37 09/10/18 20:39 Chapstick TOPICAL 1 applicatio UNSCH PRN Administration CHAPPED LIPS Pantoprazole Sodium 20 mg 09/10/18 09:00 09/10/18 09:22 Protonix PO 20 mg DAILY CATALINO Administration Prochlorperazine Edisylate 10 mg 09/09/18 20:31 09/11/18 05:06 Compazine Inj IV.PUSH 10 mg Q4H PRN Administration NAUSEA OR VOMITING Senna/Docusate Sodium 1 tab 09/10/18 21:00 09/10/18 20:41 Aida-Colace PO 1 tab BID CATALINO Administration Objective Remarks: GENERAL: Chronically ill-appearing frail elderly female patient, in no acute distress. SKIN: Warm and dry. HEAD: Normocephalic. EYES: No scleral icterus. No injection or drainage. NECK: Supple, trachea midline. CARDIOVASCULAR: Regular rate and rhythm without murmurs. RESPIRATORY: Breath sounds diminished, equal bilaterally. No accessory muscle use. GASTROINTESTINAL: Abdomen soft, non-tender, nondistended. EXTREMITIES: No cyanosis, or edema. MUSCULOSKELETAL: Decreased muscle tone. NEUROLOGICAL: No obvious focal deficit. Awake, alert, and oriented x3. PSYCHIATRIC: Appropriate mood and affect; insight and judgment normal. Assessment/Plan - Plan Ms. ibarra is an elderly frail 77-year-old female patient with mesothelioma. Currently hospitalized for pain management. Plan: 1. Right lung mesothelioma, recently started on checkpoint inhibitor. 2. Pain management, appreciate palliative care's assistance. Pain currently controlled on pain regimen. 3. Hypertension, will start losartan 25 mg daily. Continue to monitor blood pressure. 4. Rehab discussed with patient, she is agreeable. We will have physical therapy evaluate her. Discussed with case management. - Attending Statement The exam, history, and the medical decision-making described in the above note were completed with the assistance of the mid-level provider. I reviewed and agree with the findings presented. I attest that I had a [id number] encounter with the patient on the same day, and personally performed and documented my assessment and findings in the medical record. Patient pain better controlled however at the expense of increased somnolence. Duloxetine is decreased to 20 mg twice daily. Hoping to affect the somnolence. She only use one breakthrough medication last 24 hours. She was sleepy every time she was seen on rounds. Oramorph will be decreased to 15 mg every 8 hours. We will monitor the sedation. Same breakthrough medication will continue. Appreciate cardiothoracic surgery note. There is no surgical intervention that could be offered to her. Uncertain if the Decadron is helping her symptoms. Her appetite remains poor. She has consumed 20% of her breakfast or her dinner. She is clinically dry with dehydration. IV fluid is ordered. Her hypertension is poorly controlled. We have started a small dose of losartan now. Physical therapy is evaluated her. A consult will be placed to [place] [facility] given the complexity of her case, her uncontrolled pain, metastatic mesothelioma, history of breast cancer, fibromyalgia, Parkinson's, uncontrolled hypertension and deconditioning. She is a high fall risk in light of her Parkinson's, her tremors, and her instability. She would benefit from inpatient rehab.
[2018-09-11] MEDS: Pantoprazole Sodium 20 MG DR Tablet PO SCH (09:38)
[2018-09-11] MEDS: Morphine Sulfate 30 MG SR Tablet PO SCH (09:38)
[2018-09-11] MEDS: Aspirin 325 MG Tablet PO SCH (09:38)
[2018-09-11] MEDS: Metoprolol Tartrate 50 MG Tablet PO SCH ×2 (09:38→20:56)
[2018-09-11] MEDS: Senna/Docusate Sodium 8.6/50 MG Tablet PO SCH ×2 (09:53→20:56)
--- NOTE | 2018-09-11 15:02 | MB ---
cc: Luna Landers APRN DATE: 09/09/2018 HISTORY OF PRESENT ILLNESS: This is a 77-year-old patient, known to our service from the past who has multiple medical history with a history of metastatic mesothelioma, intractable pain. The patient underwent right robotic exploration of right chest pleurodesis 07/14/[address] Bi Barba. We were consulted for chronic pain management. She has been treated with chemotherapy by Oncology. Despite pain medication, she continues to have intractable pain. She has had definite weight loss. PAST MEDICAL HISTORY: Includes Parkinson's, fibromyalgia with chronic pain, hypothyroidism, hypertension, gastroesophageal reflux disease, pleural effusions, history of right breast cancer, right lung mesothelioma diagnosed 12/25/2016. PAST SURGICAL HISTORY: Include appendectomy, cardiac catheterization, colonoscopy, hernia repair, hysterectomy, tonsillectomy, right chest tube, right-sided pleurodesis with right robotic approach, lumbar laminectomy, left shoulder rotator cuff repair, right breast mastectomy. ALLERGIES: INCLUDE LATEX, SULFA, TAPE, LORTAB. MEDICATIONS: 1. Ambien. 2. Amlodipine. 3. Aspirin. 4. Prozac. 5. Levothyroxine. 6. Multivitamin. 7. Percocet . 8. Savella. 9. Folic acid. 10. Synthroid. 11. Omeprazole. REVIEW OF SYSTEMS: As initial H and P. Other 12 systems unremarkable. ASSESSMENT AND PLAN: The patient is being treated for right lung mesothelioma. A recent PET scan showing progressive disease, now with intractable pain. Agree that palliative care to assist in pain management. We do not offer her any long-term pain injection and/or device. Recommend long-term outpatient [facility]. Unable to offer any therapy from cardiothoracic surgery at this time. Thank you for your consultation. BUFFY Montes MD JRT/roseanne , 02:44 PM , 02:51 PM
[2018-09-11] MEDS ORDERED: Heparin Central Flush 100 UNIT/ML 5 ML Vial IV.FLUSH PRN ×2 (15:34)
[2018-09-11] MEDS ORDERED: Dextrose 5%/NaCl 0.9% Inj 1,000 ML IV.CONT SCH (20:00)
[2018-09-11] MEDS: Morphine Sulfate 15 MG SR Tablet PO SCH (21:00)
[2018-09-12] MEDS: Morphine Sulfate 15 MG SR Tablet PO SCH (06:20)
[2018-09-12] MEDS: Levothyroxine 125 MCG Tablet PO SCH (06:21)
--- NOTE | 2018-09-12 09:33 | P.PNONC ---
Subjective Interval history: Patient currently being evaluated by Dr. Gross, from [facility]. The patient is found to be confused during physical exam. She is alert, but confused. At times she is talking out of context and seeing things. Her pain medications have recently been altered. She is found to have pinpoint pupils. Reviewed pain medication schedule with Dr. Prince. Plan was to have patient transferred to rehab today. Likely this confusion is secondary to recent narcotic pain medication adjustments, however we will rule out any acute process given the patient's complex medical history by doing a CT brain prior to discharge to rehab. Patient reports her pain is currently controlled. She does report intermittent mouth pain. Objective Vital Signs/Intake & Output: Vital Signs 09/11/18 20:50 09/11/18 21:30 09/12/18 00:09 Temperature 97.4 F L 97.8 F Pulse Rate 70 66 Respiratory Rate 17 16 16 Blood Pressure 130/74 146/75 H Pulse Oximetry 94 L 93 L 09/12/18 04:49 09/12/18 05:15 09/12/18 06:50 Temperature 97.5 F L Pulse Rate 89 Respiratory Rate 19 18 18 Blood Pressure 166/94 H Pulse Oximetry 94 L 09/12/18 08:00 Temperature 97.0 F L Pulse Rate 84 Respiratory Rate 14 Blood Pressure 150/85 H Pulse Oximetry 97 Intake & Output 09/11/18 09/12/18 09/12/18 18:59 06:59 18:59 Intake Total 660 / 660 240 / 240 Output Total 450 / 450 400 / 400 Balance 210 / 210 -160 / -160 Weight 55.3 kg Intake: Oral 660 / 660 240 / 240 Output: Urine 450 / 450 400 / 400 Other: # Voids 1 Date of Last Bowel Movement 09/12/18 # Bowel Movements 1 Result Diagrams: 09/10/18 04:09 09/10/18 04:09 Medications: Active Medications Generic Name Dose Route Start Last Admin Trade Name Freq PRN Reason Stop Dose Admin Alteplase, Recombinant 2 mg 09/09/18 20:31 09/10/18 05:39 Cathflo Activase Inj I-CATHETER 2 mg UNSCH PRN Administration for clotted access port Amlodipine Besylate 10 mg 09/10/18 09:00 09/11/18 09:36 Norvasc PO 10 mg DAILY CATALINO Administration Aspirin 81 mg 09/10/18 09:00 09/11/18 09:38 Aspirin PO 81 mg DAILY CATALINO Administration Dexamethasone Sodium Phosphate 4 mg 09/10/18 09:00 09/11/18 20:57 Decadron Inj IV.PUSH 4 mg Q12HR CATALINO Administration Duloxetine HCl 20 mg 09/11/18 21:00 09/11/18 20:56 Cymbalta PO 20 mg BID CATALINO Administration Ezetimibe 10 mg 09/10/18 09:00 09/11/18 09:37 Zetia PO 10 mg DAILY CATALINO Administration Enoxaparin Sodium 40 mg 09/10/18 09:00 09/11/18 09:35 Lovenox Inj SQ 40 mg Q24H CATALINO Administration Folic Acid 1 mg 09/10/18 09:00 09/11/18 09:37 Folic Acid PO 1 mg DAILY CATALINO Administration Lactulose 15 ml 09/09/18 21:00 09/11/18 20:58 Lactulose Liq PO 15 ml BID CATALINO Administration Levothyroxine Sodium 125 mcg 09/10/18 06:00 09/12/18 06:21 Synthroid PO 125 mcg DAILY@0600 CATALINO Administration Losartan Potassium 25 mg 09/11/18 09:45 09/11/18 13:51 Cozaar PO 25 mg DAILY CATALINO Administration Metoprolol Tartrate 50 mg 09/09/18 21:00 09/11/18 20:56 Lopressor PO 50 mg BID CATALINO Administration Milnacipran HCl 50 mg 09/09/18 23:00 09/11/18 20:56 Savella PO 50 mg BID CATALINO Administration Multi-Ingredient Mouthwash/Gargle 10 ml 09/10/18 13:00 09/11/18 20:55 Magic Mouthwash Adult Liq SWISH-SWAL 10 ml QID CATALINO Administration Oxycodone HCl 30 mg 09/10/18 18:11 09/12/18 08:06 Roxicodone PO 30 mg Q3H PRN Administration PAIN SCALE 6 TO 10 Padimate O 1 applicatio 09/10/18 11:37 09/10/18 20:39 Chapstick TOPICAL 1 applicatio UNSCH PRN Administration CHAPPED LIPS Pantoprazole Sodium 20 mg 09/10/18 09:00 09/11/18 09:38 Protonix PO 20 mg DAILY CATALINO Administration Prochlorperazine Edisylate 10 mg 09/09/18 20:31 09/11/18 05:06 Compazine Inj IV.PUSH 10 mg Q4H PRN Administration NAUSEA OR VOMITING Senna/Docusate Sodium 1 tab 09/10/18 21:00 09/11/18 20:56 Aida-Colace PO 1 tab BID CATALINO Administration Objective Remarks: GENERAL: Chronically ill-appearing frail elderly female patient, in no acute distress. +confused +hallucinations SKIN: Warm and dry. HEAD: Normocephalic. EYES: No scleral icterus. No injection or drainage. Pinpoint pupils. PERRLA. MOUTH: [place] moist mucous membranes, no sores, ulcers or lesions noted. NECK: Supple, trachea midline. CARDIOVASCULAR: Regular rate and rhythm without murmurs. RESPIRATORY: Breath sounds diminished, equal bilaterally. No accessory muscle use. GASTROINTESTINAL: Abdomen soft, non-tender, nondistended. EXTREMITIES: No cyanosis, or edema. MUSCULOSKELETAL: Decreased muscle tone. Equal strength bilaterally. NEUROLOGICAL: Awake, alert, confused. +tremor. PSYCHIATRIC: Calm, cooperative.+ Hallucinations. Assessment/Plan - Plan Ms. Guzman is an elderly frail 77-year-old female patient with mesothelioma. Currently hospitalized for pain management. Plan: 1. Right lung mesothelioma, recently started on checkpoint inhibitor. 2. Pain management, appreciate palliative care's assistance. Pain currently controlled on pain regimen, however patient is confused and hallucinating. Discussed with Dr. Brianne Joseph rehab, plan to decrease pain medications at this time and if they need to be increased rehab will be able to accommodate this. 3. Hypertension, started losartan 25 mg daily, yesterday. Continue to monitor blood pressure. 4. Dr. Gross, from [place] [facility] is at the bedside evaluating the patient. Patient is found to be confused and hallucinating. She did receive Oramorph 15 mg at 0620 this a.m. and Roxicodone 30 mg at 0806, which could be contributing to the confusion and hallucinating. Given her complex medical history, we will obtain a CT brain prior to her being discharged to [place]. If this is negative , she will be discharged and transferred to [place] for rehab. They will continue to monitor her blood pressure and her pain.
--- NOTE | 2018-09-12 10:32 | CT ---
EXAM DATE: 09/12/2018 10:28 AM EST AGE/SEX: 77 years / Female INDICATIONS: Confusion, metastatic mesothelioma. CLINICAL DATA: This is the patient's initial encounter. Patient reports that signs and symptoms have been present for 1 day and indicates a pain score of 0/10. MEDICAL/SURGICAL HISTORY: Carcinoma, breast. Cerebrovascular disease. pleural mesothelioma Fusion , cervical. RADIATION DOSE: 132.68 CTDI (mGy) ; Combined studies COMPARISON: [facility], CT BRAIN W/O CONTRAST, 06/29/2017. [facility], MR BRAIN W AND W/O CONTRAST, 8. . TECHNIQUE: Axial images of the head were acquired without contrast and after intravenous administrat ion of 50 ml Omnipaque 350 (iohexol) nonionic water-soluble contrast as a cumulative dose for multip le exams. Using automated exposure control and adjustment of the mA and/or kV according to patient size, radiation dose was kept as low as reasonably achievable to obtain optimal diagnostic quality im ages. DICOM format image data is available electronically for review and comparison. FINDINGS: Cerebrum: Cerebral atrophy is noted. Moderate periventricular and subcortical white matter small ves juju ischemic changes are noted bilaterally. 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 There is no acute infarct, acute hemorrhage, midline shift shift or extra-axial fluid colle ction. No abnormal enhancing lesion is noted. Posterior Fossa: The cerebellum and brainstem are intact. The 4th ventricle is midline. The cerebe llopontine angle is unremarkable. Extracranial: The visualized portion of the orbits is intact. Skull: The calvaria is intact. No evidence of skull fracture. Post Contrast: No abnormal areas of parenchymal or dural enhancement. No evidence of blood-brain ba rrier breakdown. CONCLUSION: 1. Cerebral atrophy. 2. Moderate periventricular and subcortical white matter small vessel ischemic changes are noted blake aterally. 3. 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 4. No acute infarct, acute hemorrhage, midline shift shift or extra-axial fluid collection. 5. No abnormal enhancing lesion is noted. Electronically signed by: Eddie Leblanc MD Board Certified Radiologist 09/12/2018 10:31 AM EST
[2018-09-12 11:18] VITALS: RESP 17
[2018-09-12] MEDS: Enoxaparin Inj 40 MG/0.4 ML Syringe SQ SCH (11:20)
[2018-09-12] MEDS: Senna/Docusate Sodium 8.6/50 MG Tablet PO SCH (11:20)
[2018-09-12] MEDS: Ezetimibe 10 MG Tablet PO SCH (11:20)
[2018-09-12] MEDS: amLODIPine 10 MG Tablet PO SCH (11:20)
[2018-09-12] MEDS: MILNACIPRAN 100 MG PO SCH (11:20)
[2018-09-12] MEDS: Pantoprazole Sodium 20 MG DR Tablet PO SCH (11:21)
[2018-09-12] MEDS: Folic Acid 1 MG Tablet PO SCH (11:21)
[2018-09-12] MEDS: Metoprolol Tartrate 50 MG Tablet PO SCH (11:21)
[2018-09-12] MEDS: Aspirin 325 MG Tablet PO SCH (11:21)
[2018-09-12] MEDS: Nystatin/Diphenhydramine/Lidocaine Mouthwash (Adult) 120 ML Botttle SWISH-SWAL SCH ×2 (11:25→15:57)
--- NOTE | 2018-09-12 13:27 | P.CONREH ---
History of Present Illness Service: Physical medicine and rehabilitation Consult date: 09/12/18 Reason for Consult: Comprehensive rehabilitation evaluation Primary Care Provider: Cole Henao MD History of Present Illness: Maddie Guzman is a 77-year-old [id number] female with past medical history of Parkinson's disease, fibromyalgia with chronic pain, hypothyroidism, hypertension, depression, right breast cancer and GERD who was admitted to [facility] 09/09/[address] PET scan 08/19/18 showed significant disease progression with increase in intensity and enlarging nodules in the right lung and multiple new nodules in the left lung characteristic of metastatic disease. She was started on Nivolumab 08/23/18. Over the last 2 weeks she developed chest pain and shoulder pain. She underwent injection to the scapula without improvement. She was given a trial of methadone resulting in confusion. Patient has been started on long-acting morphine with oxycodone for breakthrough. She is noted to have increased confusion. Review of Systems other (Limited due to confusion) Constitutional: Denies headache(s) Eyes: Denies double vision Ears, Nose, Mouth, and Throat: Reports dizziness, Denies difficulty swallowing Cardiovascular: Reports chest pain Respiratory: Denies shortness of breath Gastrointestinal: Reports constipation Genitourinary: Reports other (Garcia in place) Musculoskeletal: Reports muscle weakness PMFSH - History History Provided By: Patient - Medical History Medical History: Medical History (Last Reviewed 09/12/18 @ 13:58 by Ann Gross MD) Breast cancer CVA (cerebral vascular accident) Colitis Constipation Diverticulosis Fibromyalgia GERD (gastroesophageal reflux disease) History of hysterectomy Hypothyroidism Osteoarthritis Osteoporosis - Surgical History Surgical History: Surgical History (Last Reviewed 09/12/18 @ 13:58 by Ann Gross MD) History of appendectomy History of chest tube placement History of colonoscopy History of lumbar spinal fusion History of lung biopsy History of right mastectomy History of rotator cuff surgery History of thoracentesis History of tonsillectomy Hx of decompressive lumbar laminectomy Status post cervical spinal fusion Status post epidural steroid injection Status post right knee replacement Status post robot-assisted surgical procedure - Family History Family History: Family History (Last Reviewed 09/11/18 @ 09:19 by Lisbeth Allen) Sister Breast cancer Other Patient's father is - Tobacco History Second Hand Smoke Exposure: No Smoking Status: Never smoker - Alcohol History How Often Do You Have a Drink Containing Alcohol: 2 to 4 times a month - Substance Use History Substance History: No History of Abuse - Immunization History Tetanus Immunization: <5 Years Hx Influenza Vaccine This Season: Yes Medications and Allergies Active Medications: Active Medications Alteplase, Recombinant (Cathflo Activase Inj) 2 mg I-CATHETER UNSCH PRN PRN Reason: for clotted access port Last Admin: 09/10/18 05:39 Dose: 2 mg Amlodipine Besylate (Norvasc) 10 mg PO DAILY [facility] Last Admin: 09/12/18 11:20 Dose: 10 mg Aspirin (Aspirin) 81 mg PO DAILY [facility] Last Admin: 09/12/18 11:21 Dose: 81 mg Dexamethasone Sodium Phosphate (Decadron Inj) 4 mg IV.PUSH Q12HR [facility] Last Admin: 09/12/18 11:44 Dose: 4 mg Duloxetine HCl (Cymbalta) 20 mg PO BID [facility] Last Admin: 09/12/18 11:21 Dose: 20 mg Ezetimibe (Zetia) 10 mg PO DAILY [facility] Last Admin: 09/12/18 11:20 Dose: 10 mg Enoxaparin Sodium (Lovenox Inj) 40 mg SQ Q24H [facility] Last Admin: 09/12/18 11:20 Dose: 40 mg Folic Acid (Folic Acid) 1 mg PO DAILY [facility] Last Admin: 09/12/18 11:21 Dose: 1 mg Heparin Sodium (Porcine) (Heparin Central Flush) 250 unit IV.FLUSH PRN PRN PRN Reason: Flush Infusapot Heparin Sodium (Porcine) (Heparin Central Flush) 500 unit IV.FLUSH PRN PRN PRN Reason: Flush infusaport Ondansetron HCl 8 mg/ Dextrose 54 mls @ 200 mls/hr IV.SIG Q8H PRN PRN Reason: NAUSEA OR VOMITING Lactulose (Lactulose Liq) 15 ml PO BID [facility] Last Admin: 09/12/18 11:19 Dose: 15 ml Levothyroxine Sodium (Synthroid) 125 mcg PO DAILY@0600 [facility] Last Admin: 09/12/18 06:21 Dose: 125 mcg Lorazepam (Ativan) 0.5 mg PO Q6HR PRN PRN Reason: ANXIETY Losartan Potassium (Cozaar) 25 mg PO DAILY [facility] Last Admin: 09/12/18 11:20 Dose: 25 mg Metoprolol Tartrate (Lopressor) 50 mg PO BID [facility] Last Admin: 09/12/18 11:21 Dose: 50 mg Milnacipran HCl (Savella) 50 mg PO BID [facility] Last Admin: 09/12/18 11:20 Dose: 50 mg Morphine Sulfate (Oramorph Sr) 15 mg PO Q12HR [facility] Multi-Ingredient Mouthwash/Gargle (Magic Mouthwash Adult Liq) 10 ml SWISH-SWAL QID [facility] Last Admin: 09/12/18 11:25 Dose: 10 ml Oxycodone HCl (Roxicodone) 10 mg PO Q4H PRN PRN Reason: pain 4-10 Padimate O (Chapstick) 1 applicatio TOPICAL UNSCH PRN PRN Reason: CHAPPED LIPS Last Admin: 09/10/18 20:39 Dose: 1 applicatio Pantoprazole Sodium (Protonix) 20 mg PO DAILY [facility] Last Admin: 09/12/18 11:21 Dose: 20 mg Prochlorperazine Edisylate (Compazine Inj) 10 mg IV.PUSH Q4H PRN PRN Reason: NAUSEA OR VOMITING Last Admin: 09/11/18 05:06 Dose: 10 mg Senna/Docusate Sodium (Aida-Colace) 1 tab PO BID [facility] Last Admin: 09/12/18 11:20 Dose: 1 tab Sodium Chloride (Ns Flush) 5 ml IV.FLUSH PRN PRN PRN Reason: Flush Infusaport Zolpidem Tartrate (Ambien) 10 mg PO HS PRN PRN Reason: SLEEP Allergies Allergy/AdvReac Type Severity Reaction Status Date / Time adhesive Allergy Severe REDNESS,CEDRICK Unverified 06/29/17 19:25 H latex Allergy Intermediate RED RASH Unverified 06/29/17 19:25 acetaminophen Allergy Mild ITCHING Unverified 06/29/17 19:25 hydrocodone Allergy Mild ITCHING Unverified 06/29/17 19:25 Sulfa (Sulfonamide Allergy Mild HIVES Unverified 06/29/17 19:25 Antibiotics) Exam - Physical Examination Vital Signs / I&O: Vital Signs 09/11/18 20:50 09/11/18 21:30 09/12/18 00:09 Temperature 97.4 F L 97.8 F Pulse Rate 70 66 Respiratory Rate 17 16 16 Blood Pressure 130/74 146/75 H Pulse Oximetry 94 L 93 L 09/12/18 04:49 09/12/18 05:15 09/12/18 06:50 Temperature 97.5 F L Pulse Rate 89 Respiratory Rate 19 18 18 Blood Pressure 166/94 H Pulse Oximetry 94 L 09/12/18 08:00 09/12/18 09:10 09/12/18 11:18 Temperature 97.0 F L 97.5 F L Pulse Rate 84 84 Respiratory Rate 14 17 17 Blood Pressure 150/85 H 154/82 H Pulse Oximetry 97 94 L Intake & Output 09/11/18 09/12/18 09/12/18 18:59 06:59 18:59 Intake Total 660 / 660 240 / 240 Output Total 450 / 450 400 / 400 Balance 210 / 210 -160 / -160 Weight 55.3 kg Intake: Oral 660 / 660 240 / 240 Output: Urine 450 / 450 400 / 400 Other: # Voids 1 Date of Last Bowel Movement 09/12/18 09/11/18 # Bowel Movements 1 Intake & Output 09/10/18 09/11/18 09/12/18 09/13/18 06:59 06:59 06:59 06:59 Intake Total 685 / 685 1220 / 1220 900 / 900 Output Total 200 / 200 1125 / 1125 850 / 850 Balance 485 / 485 95 / 95 50 / 50 Weight 54.5 kg 55 kg 55.3 kg General: No acute distress, Other (Patient awake and alert; appears to be confused) Respiratory: Lungs CTA, Non-labored respirations, BS equal (Decreased breath sounds in the bases) Gastrointestinal: Positive bowel sounds, Non-distended, Non-tender Date of Last Bowel Movement: 09/11/18 Cardiovascular: Normal rate, No edema, Regular rhythm Skin: No rash Psychiatric: Cooperative - Neurologic Orientation: oriented to: Self, Place (With cues), disoriented to: Time, Situation Neurologic: Cranial nerves (Grossly intact 2 through 12) Motor: Right Upper Extremity (4/5), Left Upper Extremity (4/5), Right Lower Extremity (4/5), Left Lower Extremity (4/5) Sensory: Grossly intact to light touch throughout Clonus: Negative Results - Labs CBC & Chem 7: 09/10/18 04:09 09/10/18 04:09 - Imaging Impressions Head CT 09/12/18 00:00 CONCLUSION: 1. Cerebral atrophy. 2. Moderate periventricular and subcortical white matter small vessel ischemic changes are noted bilaterally. 3. 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 4. No acute infarct, acute hemorrhage, midline shift shift or extra-axial fluid collection. 5. No abnormal enhancing lesion is noted. Assessment and Plan (1) Malignant pleural mesothelioma Status: Acute Code(s): C45.0 - Mesothelioma of pleura (2) Intractable pain Status: Acute Code(s): R52 - Pain, unspecified - Plan Assessment: 1. Malignant pleural mesothelioma with intractable pain now on long-acting morphine with oxycodone for breakthrough 3. Fibromyalgia with chronic pain 4. Hypothyroidism 5. Hypertension 6. Depression 7. History of right breast cancer 8. GERD 9. Impaired mobility and ADLs due to above Recommendations: 1. Physical therapy is mobilizing and patient is now minimal to moderate assistance for transfers and ambulating 10 feet with a wheeled walker. Continue to mobilize. 2. Increased confusion with adjustment of pain medications. Discussed with oncology service and CT of head has been ordered 3. Patient will benefit from ongoing inpatient rehabilitation if head CT negative including pain management, steroid taper, bowel program and follow-up of hypertension 4. Will follow while hospitalized and as appropriate at discharge Discussed with Rae ARNETT and Dr Lao
--- NOTE | 2018-09-12 15:22 | P.PNPAL ---
Reason for Visit Reason for visit: a. To assist with evaluation and management of symptoms including: pain, constipation. b. To assist medical decision maker(s) with: better understanding of current medical conditions; weighing benefits/burdens of medical treatment options; making medical treatment decisions. Subjective Subjective/Interval History: Patient seen and examined in room. Spouse at bedside. Patient is sitting up in chair eating lunch. She is awake and alert, she does not appear confused or hallucinating during my visit. She seems to remember me from a few days ago. She asks me if Dr. Rowe is my boss. She rates pain 5/10 during my visit in her chest. She again tells me the pain is constant and that she thinks in order to "stay ahead of her pain" that she should take the oxycodone when her pain is rated about 4 or 5. Spoke with Rae Navarro APRN who reports patient was confused and hallucinating this morning. Morphine has been decreased to 15mg every 12 hours and Roxicodone 10mg PO every 4 hours PRN. She remains on Dexamethasone 4mg every [address] head was done given neurologic changes this morning, revealed cerebral atrophy, bilateral moderate periventricular and subcortical white matter small vessel ischemic changes, old lacunar infarcts bilateral basal ganglia, no acute hemorrhage, infarct, midline shift or extra-axial fluid collection, no enhancing lesion noted. Patient has had 2 bowel movements, remains on Senna-S BID. Patient and her agree to continue current medication doses for now, will monitor need and effects and make adjustments as needed. requests continued palliative care visits while patient is in rehab, advised we will need to be consulted. Oncology will handle tapering of steroids. Palliative care number provided. Family/Friend Interactions: See interval note. Advance Directives Advance Directives Date on File: 04/27/11 Health Care Surrogate Name and Number: Dex Guzman (Bill), spouse: [phone] Documented care wishes:: LW indicates if she should have a terminal condition and 2 MDs agree have determined that there can be no recovery from such condition and that her would be imminent if life prolonging procedures are withheld, terminated or withdrawn, that she directs lif prolonging procedures including NG or IV sustenance with withdrawn and she be permitted to naturally with administration of medication or procedures to provide comfort or to alleviate pain... Significant change in goals:: FULL CODE. Goals remain to adequately manage pain and for rehab in hopes she will be able to feel well enough to go home and continue chemotherapy. Objective Vital Signs: Vital Signs 09/11/18 20:50 09/11/18 21:30 09/12/18 00:09 Temperature 97.4 F L 97.8 F Pulse Rate 70 66 Respiratory Rate 17 16 16 Blood Pressure 130/74 146/75 H Pulse Oximetry 94 L 93 L 09/12/18 04:49 09/12/18 05:15 09/12/18 06:50 Temperature 97.5 F L Pulse Rate 89 Respiratory Rate 19 18 18 Blood Pressure 166/94 H Pulse Oximetry 94 L 09/12/18 08:00 09/12/18 09:10 09/12/18 11:18 Temperature 97.0 F L 97.5 F L Pulse Rate 84 84 Respiratory Rate 14 17 17 Blood Pressure 150/85 H 154/82 H Pulse Oximetry 97 94 L Intake & Output 09/11/18 09/12/18 09/12/18 18:59 06:59 18:59 Intake Total 660 / 660 240 / 240 Output Total 450 / 450 400 / 400 4 / 4 Balance 210 / 210 -160 / -160 -4 / -4 Weight 55.3 kg Intake: Oral 660 / 660 240 / 240 Output: Urine 450 / 450 400 / 400 4 / 4 Other: # Voids 1 Date of Last Bowel Movement 09/12/18 09/11/18 # Bowel Movements 1 Physical Exam: CONSTITUTIONAL/GENERAL: This is a frail, elderly patient, in no apparent distress. TUBES/LINES/DRAINS: left port. SKIN: No jaundice, rashes, or lesions. Ecchymoses on upper extremities. No wounds seen anteriorly. Skin temperature appropriate. Not diaphoretic. EYES: Pupils equal and round and reactive. ENT: Hearing grossly normal. Dry oral mucosa. Tiny white patches in mouth. CARDIOVASCULAR: Regular rate and rhythm without murmurs. RESPIRATORY/CHEST: Symmetric, unlabored respirations. Clear to auscultation. Diminished breath sounds right. Old right mastectomy. GASTROINTESTINAL: Abdomen soft, non-tender, nondistended. No hepato-splenomegaly , or palpable masses. No guarding. Bowel sounds present. GENITOURINARY: Without palpable bladder distension. MUSCULOSKELETAL: Muscle wasting noted. Extremities without edema. NEUROLOGICAL: Awake and alert. Follows commands. Cognitively sharp. Moves all extremities. PSYCHIATRIC: Denies anxiety/depression. no hallucinations or other psychotic thought process. Diagnostic Tests Laboratory: Laboratory Results - last 72 hr 09/10/18 09/10/18 09/10/18 04:09 04:09 04:09 WBC 6.8 RBC 4.23 Hgb 14.6 Hct 42.1 MCV 99.6 MCH 34.6 H MCHC 34.7 RDW 14.4 Plt Count 163 D MPV 7.5 Neut % (Auto) 79.9 H Lymph % (Auto) 10.3 [place] % (Auto) 6.4 Eos % (Auto) 3.1 Baso % (Auto) 0.3 Neut # (Auto) 5.4 Lymph # (Auto) 0.7 L [place] # (Auto) 0.4 Eos # (Auto) 0.2 Baso # (Auto) 0.0 WBC Differential . Differential Comment Auto diff final Retic Count 2.1 Absolute Retic 88.2 PT 10.5 INR 1.0 APTT 26.2 Sodium 138 Potassium 3.6 Chloride 103 Carbon Dioxide 26.8 Anion Gap 8 BUN 17 Creatinine 0.60 Estimated GFR Greater than 89 Random Glucose 77 Calcium 9.1 Total Bilirubin 0.8 AST 16 ALT 24 Alkaline Phosphatase 88 Lactate Dehydrogenase 175 Total Protein 6.8 Albumin 3.1 L Result Diagrams: 09/10/18 04:09 09/10/18 04:09 Imaging: Head CT 09/12/18 00:00 CONCLUSION: 1. Cerebral atrophy. 2. Moderate periventricular and subcortical white matter small vessel ischemic changes are noted bilaterally. 3. 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 4. No acute infarct, acute hemorrhage, midline shift shift or extra-axial fluid collection. 5. No abnormal enhancing lesion is noted. Assessment and Plan - Disease Oriented Problem List (1) Malignant pleural mesothelioma (2) Intractable pain - Symptom Scale (1) Intractable pain 0-10 Scale: 5 (2) Constipation 0-10 Scale: 0 Pertinent Non-Medical Issues: Psychosocial: . 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 They have 3 sons and 1 daughter. Never smoked. No history drug use, occasional alcohol use in the past. Spiritual: Muslim nathan. Legal: Patient is currently capacitated to make her own health care decisions. Living Will on file dated 04/27/2011. She has designated her spouse, Dex Guzman (Bill ) as her health care surrogate should she lose capacity. Ethical issues impacting care: No known concerns at this time. Important Contacts: * Dr. Dex Guzman, [facility]/ Spouse: [phone] * Toribio Guzman, son: [phone] Prognosis: Mrs. Guzman is a 77 year old female with malignant pleural mesothelioma undergoing treatment with Dr. Lao. Code Status: Full Code Plan: * Patient has a Living Will on file dated 04/13/2011 in which she has designated her spouse, Dex Guzman (Bill) as health care surrogate should she lose capacity. * FULL CODE * Patient hopes to get better control of her pain to go to [facility] in hopes she will get strong enough to return home for additional therapy for mesothelioma. She and her agree to continue current pain regimen at reduced dose due to earlier confusion. Dr. Lao will manage tapering of steroids. * SYMPTOMS: Pain: Patient has constant, diffuse right sided chest pain and left chest pain secondary to mesothelioma. She had 4 doses of PRN Oxycodone 30mg PO prior to decrease dose. Agree with decrease in Morphine to 15mg PO every 12 hours and Oxycodone 10mg PO every 4 hours PRN breakthrough pain given earlier confusion which seems improved. Constipation: LBM 09/12/18. On Senna -S BID for constipation. * Palliative care number provided to spouse. * Palliative care will continue to follow to assist with symptom management and further clarification of goals of medical treatment as needed. Attestation Attestation: To help prompt me to consider important information that might be impacting today's encounter and assessment, information from prior notes written by myself or my colleagues may have been "brought forward" into today's note. My signature on this note, however, is an attestation that I personally performed the exam, history, and/or decision-making noted today, and, unless otherwise indicated, the interactions with patient, family, and staff as well as the review of records all occurred today. I also attest that the listed assessment and stated plan reflect my best clinical judgment today based on the combination of historical information, prior notes, and today's exam/ interactions. When time spent is documented, it refers only to time spent today by the signer, or if indicated, combined time spent today by collaborating physician/nurse practitioner.
[2018-09-12 15:54] VITALS: BP 146/74; PULSE 70; TEMP 97; O2SAT 95
--- NOTE | 2018-09-12 16:08 | P.DS ---
Date of admission: 09/09/18 20:19 Primary care physician: Cole Henao MD Brief History from admission: Mrs. Guzman is a 77-year-old woman with multiple medical problems. She has a complex past medical history. She is known in oncology clinic for her diagnosis of right lung mesothelioma. She has had recent CT PET scan evaluation which shows progressive disease. She is started on a checkpoint inhibitor, which is new. She was admitted to the hospital to monitor her pain and manage her pain. Palliative care was consulted to assist with pain control. Patient's pain was controlled, however she did get confused and her doses were decreased. Cardiothoracic was consulted to see if there was anything to offer by way of alleviating her pain symptoms in the right lung. They had nothing further to offer. She is weak and continues to require assistance with ADLs. [facility] was consulted for rehabilitation. Patient update on day of discharge: Patient appeared more confused this a.m., her pain medications were adjusted yesterday. A CT brain was obtained no acute findings. Her pain medications were decreased. Discussed with [facility] physician and they will continue to make adjustments as warranted. DS: Diagnosis - Discharge Diagnosis (1) Malignant pleural mesothelioma Status: Acute Diagnosis: Principal (2) Intractable pain Status: Acute Diagnosis: Secondary DS: Summary Hospital Course: Mrs. Guzman is a 77-year-old woman with multiple medical problems. She has a complex past medical history. She is known in oncology clinic for her diagnosis of right lung mesothelioma. She has had recent CT PET scan evaluation which shows progressive disease. She is started on a checkpoint inhibitor, which is new. She was admitted to the hospital to monitor her pain and manage her pain. Palliative care was consulted to assist with pain control. Patient's pain was controlled, however she did get confused and her doses were decreased. Cardiothoracic was consulted to see if there was anything to offer by way of alleviating her pain symptoms in the right lung. They had nothing further to offer. She is weak and continues to require assistance with ADLs. [facility] was consulted for rehabilitation. Patient appeared confused this morning after receiving pain medications. A CT brain was obtained which was negative for acute findings. Her pain medications were dose down. Discussed with [facility] attending and they will continue to monitor her pain and adjust medications as warranted. - Time Spent with Patient Total time spent providing and/or coordinating discharge services: Greater than 30 minutes - Quality: VTE Deep Vein Thrombosis/Pulmonary Embolism Present on Admission: No Exam Vital signs: Vital Signs 09/11/18 20:50 09/11/18 21:30 09/12/18 00:09 Temperature 97.4 F L 97.8 F Pulse Rate 70 66 Respiratory Rate 17 16 16 Blood Pressure 130/74 146/75 H Pulse Oximetry 94 L 93 L 09/12/18 04:49 09/12/18 05:15 09/12/18 06:50 Temperature 97.5 F L Pulse Rate 89 Respiratory Rate 19 18 18 Blood Pressure 166/94 H Pulse Oximetry 94 L 09/12/18 08:00 09/12/18 09:10 09/12/18 11:18 Temperature 97.0 F L 97.5 F L Pulse Rate 84 84 Respiratory Rate 14 17 17 Blood Pressure 150/85 H 154/82 H Pulse Oximetry 97 94 L 09/12/18 15:51 Temperature 97 F L Pulse Rate 70 Respiratory Rate 17 Blood Pressure 146/74 H Pulse Oximetry 95 Intake & Output 09/11/18 09/12/18 09/12/18 18:59 06:59 18:59 Intake Total 660 / 660 240 / 240 Output Total 450 / 450 400 / 400 4 / 4 Balance 210 / 210 -160 / -160 -4 / -4 Weight 55.3 kg Intake: Oral 660 / 660 240 / 240 Output: Urine 450 / 450 400 / 400 4 / 4 Other: # Voids 1 Date of Last Bowel Movement 09/12/18 09/11/18 # Bowel Movements 1 Narrative: See exam and progress note dated 09/12/2018. Results Procedures completed during hospitalization: No procedures - Impressions ITS Impressions Head CT 09/12/18 00:00 CONCLUSION: 1. Cerebral atrophy. 2. Moderate periventricular and subcortical white matter small vessel ischemic changes are noted bilaterally. 3. 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 4. No acute infarct, acute hemorrhage, midline shift shift or extra-axial fluid collection. 5. No abnormal enhancing lesion is noted. Discharge Plan - Discharge Disposition Patient Disposition: [facility] Inpatient - Discharge Condition Condition: Stable - Discharge Order Discharge Orders: Discharge Order (Routine); Ordered 09/12/18 Ordered By: Rae Navarro - Discharge Details Anticipated Discharge Date: 01/10/19 Discharge Comment: [facility] - Physicians Team Primary Care Provider: Cole Henao Attending Provider: Afshan Lao Other Providers: Bi Barba MD ; Dusty Rowe MD ; Ann Gross MD - Rxs /Orders / Referrals /Forms Prescriptions: New amlodipine [Norvasc] 10 mg Tablet 10 mg PO DAILY RF: 0 aspirin 325 mg Tablet 81 mg PO DAILY RF: 0 dexamethasone sodium phosphate 4 mg/mL Solution 4 mg IV.PUSH Q12HR RF: 0 duloxetine [Cymbalta] 20 mg Capsule,Delayed Release(Dr/Ec) 20 mg PO BID RF: 0 enoxaparin [Lovenox] 40 mg/0.4 mL Syringe 40 mg subcut Q24H RF: 0 ezetimibe [Zetia] 10 mg Tablet 10 mg PO DAILY RF: 0 folic acid 1 mg Tablet 1 mg PO DAILY RF: 0 lactulose 20 gram/30 mL Solution 15 ml PO BID RF: 0 levothyroxine [Synthroid] 125 mcg Tablet 125 mcg PO DAILY@0600 RF: 0 lorazepam 0.5 mg Tablet 0.5 mg PO Q6HR PRN (Reason: Anxiety) RF: 0 losartan [Cozaar] 25 mg Tablet 25 mg PO DAILY RF: 0 metoprolol tartrate 50 mg Tablet 50 mg PO BID RF: 0 milnacipran [Savella] 100 mg Tablet 50 mg PO BID RF: 0 morphine 15 mg Tablet Extended Release 15 mg PO Q12HR RF: 0 ondansetron HCl (PF) 4 mg/2 mL Solution 8 mg IV Q8H PRN (Reason: Nausea Or Vomiting) RF: 0 oxycodone 5 mg Tablet 10 mg PO Q4H PRN (Reason: pain 4-10) RF: 0 pantoprazole [Protonix] 20 mg Tablet,Delayed Release (Dr/Ec) 20 mg PO DAILY RF: 0 prochlorperazine Edisylate 10 mg/2 mL (5 mg/mL) Solution 10 mg IV.PUSH Q4H PRN (Reason: Nausea Or Vomiting) RF: 0 sennosides-docusate sodium [Senna Plus] 8.6-50 mg Tablet 1 tab PO BID RF: 0 sodium chloride 0.9 % [Normal Saline Flush] Syringe 5 ml IV.FLUSH PRN PRN (Reason: Flush Infusaport) RF: 0 zolpidem 10 mg Tablet 10 mg PO HS PRN (Reason: Sleep) RF: 0 Referrals: Cole Henao MD [Primary Care Provider] - See Instructions - Discharge Instructions Patient Printed Instructions: Morphine, Slow Release (By mouth), Anorexia in Older Adults (GEN), Pleural Mesothelioma (DC) Additional Instructions: Your Health Problems: Goals to Promote Your Health: * To prevent worsening of your condition * To maintain your health at the optimal level Directions to Meet Your Goals: * Take your medications as prescribed * Follow your dietary instruction * Follow activity as directed * Keep your appointments as scheduled * Take your immunizations and boosters as scheduled * If your symptoms worsen call your PCP * If no PCP go to Urgent Care or Emergency Room Smoking is dangerous to your health. Avoid second hand smoke. You may reach the 24-hour crisis hotline for domestic abuse at . - Post Discharge Care Plan Care Plan Goals: Your Health Problems: Goals to Promote Your Health: * To prevent worsening of your condition * To maintain your health at the optimal level Directions to Meet Your Goals: * Take your medications as prescribed * Follow your dietary instruction * Follow activity as directed * Keep your appointments as scheduled * Take your immunizations and boosters as scheduled * If your symptoms worsen call your PCP * If no PCP go to Urgent Care or Emergency Room Smoking is dangerous to your health. Avoid second hand smoke. You may reach the 24-hour crisis hotline for domestic abuse at .
[2018-09-12] MEDS ORDERED: Morphine Sulfate 15 MG SR Tablet PO SCH (21:00)
== END 2018-09-12 17:16 | DRG 948 ==
LOC: HCIN 20:19
PROVIDERS: ADMIT Internal Medicine Hematology & Oncology; ATTEND Internal Medicine Hematology & Oncology
CPT/HCPCS: 70470; 80053; 83615; 85025; 85044; 85610; 85730; J0780; J1100; J1650; J2270; J2997; J7040; J7042; Q9967